=== PATIENT | female | born 1950 | race African-American/Black ===

== ENCOUNTER 2016-11-24 08:26 | Observation (INO) ==
[2016-11-24] MEDS ORDERED: MAGNESIUM SULF RIDER 2 GM in PREMIX 1 EACH IV STA (08:38)
[2016-11-24] MEDS ORDERED: ALBUTEROL NEB SOLN 5 MG/ML 20 ML/BOTTLE CONT NEB STA (08:38)
[2016-11-24] MEDS ORDERED: methylPREDNISolone SOD SUC 125 MG/2 ML VIAL IV STA (08:38)
[2016-11-24] MEDS ORDERED: SODIUM CHLORIDE 0.9% 500 ML IV STA (08:38)
[2016-11-24] MEDS ORDERED: methylPREDNISolone SOD SUC 125 MG/2 ML VIAL ONE (08:47)
--- NOTE | 2016-11-24 08:47 | Emergency Department Note ---
Kena Pate Brittany, am scribing for, and in the presence of, Jaya Morrison MD 08: 42. Tamiko Pate James D, MD, personally performed the services described in this documentation, ascribed by Idania Escudero in my presence, and it is both accurate and complete 846 . Arrival - Arrival Chief Complaint: Shortness of Breath Stated Complaint: chest pain ED Nursing Triage Note: C/o cough, SOB, and wheezing-onset yesterday. Reports that she took her nebulizer with no relief. Audible wheezing noted. Mode of Arrival: Ambulatory Limitations: No Limitations Source: Patient Time Seen by Provider: 11/24/16 08:36 - History of Present Illness HPI Narrative: This is a 66 y/o black female,who presents to the ED with c/o dyspnea which started last night. She states the SOB got worse this morning. She states she is wheezing and coughing as well. She states the cough is mildly productive of white clear sputum. She has taken a breathing Tx which has not helped. Patient has a long history of asthma. She has been intubated in the past due to her asthma exacerbations. Pt has no other complaints/pain in the ED at this time. Pt has a PMHx of IDDM, HTN, and asthma. Pt has had a hysterectomy and orthopedic surgery. Pt has a family medical Hx of HTN. Pt denies a social Hx. Onset (ago): hour(s) (Started last night) Consistency: constant Severity: moderate Date of Last Menstrual Period: hysterectomy Allergies/Adverse Reactions: Allergies Allergy/AdvReac Type Severity Reaction Status Date / Time acetaminophen [From Lortab] Allergy Mild ITCHING Verified 08/14/15 18:38 hydrocodone [From Lortab] Allergy Mild ITCHING Verified 08/14/15 18:38 Home Medications: Home Medications Medication Instructions Recorded Confirmed Type Albuterol Sulfate [Ventolin HFA] 2 puff INH Q4HR 09/04/15 11/24/16 History Allopurinol 300 mg PO DAILY 09/04/15 11/24/16 History Colchicine [Colcrys] 0.6 mg PO TID 09/04/15 11/24/16 History Furosemide Tab [Lasix Tab] 80 mg PO QAM 09/04/15 11/24/16 History Gabapentin 300 mg PO BID 09/04/15 11/24/16 History Glimepiride 4 mg PO BID 09/04/15 11/24/16 History Ipratropium/Albuterol Sulfate 3 ml INH QID 09/04/15 11/24/16 History [Iprat-Albut 0.5-3(2.5) mg/3 ml] Meloxicam 7.5 mg PO DAILY 09/04/15 11/24/16 History Ranitidine Tab [Zantac Tab] 150 mg PO BID 09/04/15 11/24/16 History cloNIDine TAB [Catapres Tab] 0.3 mg PO BID 09/04/15 11/24/16 History hydroCHLOROthiazide 25 mg PO DAILY 09/04/15 11/24/16 History [Hydrochlorothiazide] predniSONE TAB [PredniSONE] 10 mg PO DAILY 09/04/15 11/24/16 History Insulin NPH Human Isophane 25 unit SUBCUT BEDTIME 09/24/16 11/24/16 History [NovoLIN N] Insulin NPH Human Isophane 30 unit SUBCUT DAILY 09/24/16 11/24/16 History [NovoLIN N] Acetaminophen Tab [Tylenol Tab] 1,000 mg PO QOTHER DAY PRN 11/24/16 11/24/16 History Fluticasone/Salmeterol 500-50 1 puff INH BID 11/24/16 11/24/16 History [Advair 500-50] Furosemide Tab [Lasix Tab] 40 mg PO BEDTIME 11/24/16 11/24/16 History Lisinopril 10 mg PO DAILY 11/24/16 11/24/16 History Montelukast Tab [Singulair Tab] 10 mg PO DAILY 11/24/16 11/24/16 History traMADol TAB [Ultram] 50 mg PO DAILY PRN 11/24/16 11/24/16 History Review of System - Review of System 12 point system: reviewed and no additional remarkable complaints except as stated - Review of System Respiratory: Present: cough (Mild production of white clear sputum ), wheezing Cardiovascular: Present: chest pain Medical,Surgical,& Family Hx - Medical History Cardio: History of: Hypertension Endocrine: History of: Diabetes Mellitus (IDDM) Respiratory: History of: Asthma - Surgical History Reproductive Surgeries: Surgical HX of;: Hysterectomy Orthopedic Surgeries: Surgical HX of;: Orthopedic Surgery - Family History Family History: Reports;: Family Hypertension - Social History Smoking Status: Never smoker Frequency of Alcohol Use: None Type of Drug Use: None Exam Vital Signs: Vital Signs Temperature 98.8 F 11/24/16 08:29 Pulse Rate 105 H 11/24/16 10:15 Respiratory Rate 20 11/24/16 10:15 Blood Pressure 171/99 11/24/16 09:45 O2 Sat by Pulse Oximetry 98 11/24/16 10:15 GENERAL: This is a well-nourished well-developed black female, obese in mild respiratory distress. VITAL SIGNS: Reviewed HEENT: Head is atraumatic and normocephalic. Pupils are equal round react to light. Extraocular movements are intact. Oropharynx is benign with moist mucous membranes. NECK: Neck is soft and supple without tenderness. There are no masses. There is no lymphadenopathy. LUNGS: Wheezing in all lung jenkins, prolonged expiration, tachypnea, accessory muscle use. Chest rises symmetrically. There is no chest wall tenderness. CV: Heart is rapid rate, regular rhythm without murmurs rubs or gallops. ABDOMEN: Abdomen is soft, nontender to palpation. There are no abdominal abnormal masses palpated. There is no organomegaly. Bowel sounds are present and active. SKIN: Skin is warm and dry. No rash. EXTREMITIES: Patient has full range of motion without tenderness. There is trace pedal edema. NEUROLOGIC: Awake alert and oriented 4. Cranial nerves II through XII are grossly intact. Motor is 5 over 5 in all extremities bilaterally. Course - Consultations Consultation #1: Discussed with Dr. Tian. Patient will be admitted to the hospitalist service. Time: 11:08 Results - Labs CBC & BMP: 11/24/16 08:44 11/24/16 08:44 Lab Results: I have reviewed the patients labs Labs: Laboratory Tests 11/24/16 08:44 Troponin I 0.018 Laboratory Tests 11/24/16 08:44 B-Natriuretic Peptide 28 - EKG EKG results: interpreted by ERMD - Impressions EKG: Sinus tachycardia with a rate of 101, left bundle branch block, no further interpretation possible - Diagnostic Findings Procedure: Chest x-ray: image reviewed by me (Small left-sided pleural effusion no infiltrates.) Disposition Clinical Impression: Acute asthma exacerbation Case discussed with: patient Disposition: Still a Patient Condition: Guarded Time of Disposition: 11:04
[2016-11-24] MEDS ORDERED: MAGNESIUM SULF RIDER 50 ML IV ONE (08:48)
[2016-11-24 08:51] LABS: Basophils # 0.1 10*3/uL (0.0-0.2); Basophils % 0.6 % (0.0-0.8); Eosinophils # 0.4 10*3/uL (0.0-0.87); Hematocrit 42.5 VOL% (35.7-47.0); Hemoglobin 13.5 GM/DL (12.0-16.0); Immature Granulocytes % 1.2 %; Immature Granulocytes Absolute 0.13 #; Lymphocytes % 18.2 % (21.3-54.2); Mean Corpuscular HGB Conc 31.8 GM/DL (32-36); Mean Corpuscular Hemoglobin 29 PG (27-34); Mean Corpuscular Volume 89.7 FL (87-102); Monocytes # 0.9 10*3/uL (0.11-0.8); Monocytes % 7.9 % (1.7-12.7); Neutrophils # 7.4 10*3/uL (1.4-7.4); Neutrophils % 68.1 % (38.7-73.9); Platelet Count 227 10*3/uL (130-400); Red Blood Count 4.74 10*6/uL (3.8-5.5); Red Cell Distribution Width 15.5 % (9.3-17.3); White Blood Count 10.8 10*3/uL (4.5-13.71)
[2016-11-24 09:24] LABS: Albumin 3.4 G/DL (3.4-5.0); Bilirubin,Total 0.9 MG/DL (0.2-1.0); Calcium 9.1 MG/DL (8.5-10.1); Osmolality,Calculated 294.6 MOS/KG (273-304); Potassium 4.1 MMOL/L (3.5-5.1); Troponin I Only 0.018 NG/ML (0.00-0.045)
--- NOTE | 2016-11-24 10:43 | XRay Report ---
Exam: XR chest 2V Indication: Cough dyspnea Comparison study: 09/25/16 Findings: The heart, mediastinum and bony structures are stable from prior. Slight increase in central perihilar interstitial prominence may represent atelectasis or underlying interstitial edema changes superimposed on scarring. Similar mild flattening of diaphragms is noted. There is no focal consolidation, pneumothorax or pleural effusion identified. Impression: Borderline cardiomegaly with similar interstitial scarring changes. A mild degree of underlying interstitial edema or developing interstitial infiltrates cannot be entirely excluded. PROCEDURE INTERPRETED AT [facility] DEPARTMENT OF RADIOLOGY Final Report Signed by: Erik Joaquin
--- NOTE | 2016-11-24 11:00 | EKG Report ---
Stationary ECG Study [facility] ER Test Date: 11/24/2016 10:58:54 AM Pat Name: JIMY RICCI Department: Room: Gender: F Pcb Design Engineer: JUAN PABLO : 1950 Requested by: Jaya Sheffield Order Number: [id number] Reading MD: SP HAN Intervals [place] Rate: 101 P: 61 MT: 140 QRS: -38 QRSD: 152 T: 116 QT: 379 QTc: 437 Interpretive Statements SINUS TACHYCARDIA MARKED LEFT AXIS DEVIATION LEFT BUNDLE BRANCH BLOCK Electronically Signed On 11-24-16 14:16:01 BREAST TRIMMER by SP HAN [email or web address]
[2016-11-24] MEDS ORDERED: GLUCAGON 1 MG VIAL IM PRN (11:18)
[2016-11-24] MEDS ORDERED: ONDANSETRON 4 MG/2 ML VIAL IV PRN (11:18)
[2016-11-24] MEDS ORDERED: DEXTROSE 50% 25 GM/50 ML VIAL IV PRN (11:18)
[2016-11-24] MEDS ORDERED: traMADol 50 MG TABLET PO PRN (11:23)
[2016-11-24] MEDS ORDERED: ACETAMINOPHEN 500 MG TABLET PO PRN (11:23)
--- NOTE | 2016-11-24 13:37 | Hospitalist History & Physical ---
Assessment and Plan (1) Asthma with exacerbation Status: Acute Assessment and plan: 1)asthma exacerbation- continue the IV steroids and Duonebs started in ER, and add levaquin. Continue her usual resp meds- singulair, advair. Consult DR Ayoub. 2)HTN- continue usual meds. 3)obesity 4)DM- expect glucose to rise with IV steroids. Use usual glimepride and Novolin N and add SSI. Current Visit: No (2) Obesity (BMI 30-39.9) Status: Acute Current Visit: Yes (3) HTN (hypertension) Status: Acute Current Visit: Yes (4) Diabetes type 2, controlled Status: Acute Current Visit: No Qualifiers: Diabetes mellitus complication status: with hyperglycemia Diabetes mellitus half-way insulin use: with half-way use Qualified Code(s): E11.65 - Type 2 diabetes mellitus with hyperglycemia History of Present Illness Chief complaint: wheezing History of present illness: Ms. Flynn is a 66 year old female who came to ER this morning because her wheezing got worse overnight. She ways she wheezes some every day and is under DR Ayoub's care for asthma. She has been receiving Xolair as recommended and using her other resp meds as directed. She has not had fever, only occ cough, no other focal symptoms but has been wheezing loudly since the night. In Er she received IV steroids and an hour long neb and has improved. Though she continues to wheeze, she is much more comfortable than on arrival. No sick contacts. She has been intubated for asthma several years ago. She uses home O2 and her says she usually wheezes at night, but not like she is today. She is agreeable with admission for treatment. Home Medications Medication Instructions Recorded Confirmed Type Albuterol Sulfate [Ventolin HFA] 2 puff INH Q4HR 09/04/15 11/24/16 History Allopurinol 300 mg PO DAILY 09/04/15 11/24/16 History Colchicine [Colcrys] 0.6 mg PO TID 09/04/15 11/24/16 History Furosemide Tab [Lasix Tab] 80 mg PO QAM 09/04/15 11/24/16 History Gabapentin 300 mg PO BID 09/04/15 11/24/16 History Glimepiride 4 mg PO BID 09/04/15 11/24/16 History Ipratropium/Albuterol Sulfate 3 ml INH QID 09/04/15 11/24/16 History [Iprat-Albut 0.5-3(2.5) mg/3 ml] Meloxicam 7.5 mg PO DAILY 09/04/15 11/24/16 History Ranitidine Tab [Zantac Tab] 150 mg PO BID 09/04/15 11/24/16 History cloNIDine TAB [Catapres Tab] 0.3 mg PO BID 09/04/15 11/24/16 History hydroCHLOROthiazide 25 mg PO DAILY 09/04/15 11/24/16 History [Hydrochlorothiazide] predniSONE TAB [PredniSONE] 10 mg PO DAILY 09/04/15 11/24/16 History Insulin NPH Human Isophane 25 unit SUBCUT BEDTIME 09/24/16 11/24/16 History [NovoLIN N] Insulin NPH Human Isophane 30 unit SUBCUT DAILY 09/24/16 11/24/16 History [NovoLIN N] Acetaminophen Tab [Tylenol Tab] 1,000 mg PO QOTHER DAY PRN 11/24/16 11/24/16 History Fluticasone/Salmeterol 500-50 1 puff INH BID 11/24/16 11/24/16 History [Advair 500-50] Furosemide Tab [Lasix Tab] 40 mg PO BEDTIME 11/24/16 11/24/16 History Lisinopril 10 mg PO DAILY 11/24/16 11/24/16 History Montelukast Tab [Singulair Tab] 10 mg PO DAILY 11/24/16 11/24/16 History traMADol TAB [Ultram] 50 mg PO DAILY PRN 11/24/16 11/24/16 History Allergies Allergy/AdvReac Type Severity Reaction Status Date / Time acetaminophen [From Lortab] Allergy Mild ITCHING Verified 08/14/15 18:38 hydrocodone [From Lortab] Allergy Mild ITCHING Verified 08/14/15 18:38 Medical,Surgical,& Family Hx - Medical History Cardio: History of: Hypertension Endocrine: History of: Diabetes Mellitus (IDDM) Respiratory: History of: Asthma - Surgical History Reproductive Surgeries: Surgical HX of;: Hysterectomy Orthopedic Surgeries: Surgical HX of;: Orthopedic Surgery (Bilateral Knee replacement) - Family History Family History: Reports;: Family Hypertension - Social History Smoking Status: Never smoker Frequency of Alcohol Use: None Type of Drug Use: None Marital Status: Lives With:: Spouse Functional capacity: independent ambulation 12 point system: reviewed and no additional remarkable complaints except as stated Exam - Constitutional Vitals: Period Temp Pulse Resp BP Sys/Barnhart Pulse Ox Last 24 Hr 98.6 F 103-118 18-23 165-191/75-96 93-96 General appearance: mild distress, morbidly obese - Head Head exam: Present: normocephalic, atraumatic - Eye Eye exam: Present: EOMI. Absent: scleral icterus - Respiratory Respiratory exam: Present: wheezes (thorughout) - Cardiovascular Cardiovascular exam: Present: regular rate and rhythm - GI/Abdominal GI/Abdominal exam: Present: normal bowel sounds, soft. Absent: tenderness - Extremities Exam Extremities exam: Absent: edema - Neurological Exam Neurological exam: Present: alert, oriented X3, CN II-XII intact. Absent: motor sensory deficit - Psychiatric Psychiatric exam: Present: normal affect, normal mood - Skin Skin exam: Present: warm, dry Results - Labs CBC & BMP: 11/24/16 08:44 11/24/16 08:44 Lab Results: I have reviewed the past 24 hour labs
[2016-11-24] MEDS: INSULIN LISPRO 100 UNIT/ML SUBCUT SCH ×3 (14:03→20:22)
[2016-11-24] MEDS: ALBUTEROL 2.5 MG/3 ML NEB RESP TX SCH ×3 (14:49→23:21)
[2016-11-24] MEDS: ALBUTEROL/IPRATROPIUM 3 ML NEB RESP TX SCH ×3 (14:49→23:20)
[2016-11-24] MEDS: FUROSEMIDE 80 MG TABLET PO SCH (15:17)
[2016-11-24] MEDS: LISINOPRIL 10 MG TABLET PO SCH (15:17)
[2016-11-24] MEDS: COLCHICINE 0.6 MG TABLET PO SCH ×2 (15:17→20:22)
[2016-11-24] MEDS: LEVOFLOXACIN INJ 750 MG in PREMIX 1 EACH IV SCH (15:18)
[2016-11-24] MEDS ORDERED: INSULIN NPH 100 UNIT/ML SUBCUT SCH (17:00)
[2016-11-24] MEDS: GLIMEPIRIDE 4 MG TABLET PO SCH (17:10)
[2016-11-24] MEDS: methylPREDNISolone SOD SUC 40 MG/1 ML VIAL IV SCH (17:10)
[2016-11-24] MEDS: ENOXAPARIN 40 MG/0.4 ML SYRINGE SUBCUT SCH (20:21)
[2016-11-24] MEDS: FLUTICASONE/SALMETEROL 500-50 DISKUS 14 DOSE INH SCH (20:22)
[2016-11-24] MEDS: GABAPENTIN 300 MG CAPSULE PO SCH (20:22)
[2016-11-24] MEDS ORDERED: FUROSEMIDE 40 MG TABLET PO SCH (21:00)
[2016-11-25] MEDS: methylPREDNISolone SOD SUC 40 MG/1 ML VIAL IV SCH ×3 (00:42→17:07)
[2016-11-25] MEDS: ALBUTEROL/IPRATROPIUM 3 ML NEB RESP TX SCH ×6 (03:37→23:57)
[2016-11-25] MEDS: ALBUTEROL 2.5 MG/3 ML NEB RESP TX SCH ×3 (03:38→10:31)
[2016-11-25 04:26] LABS: Potassium 4.3 MMOL/L (3.5-5.1)
[2016-11-25] MEDS ORDERED: INSULIN NPH 100 UNIT/ML SUBCUT SCH (08:00)
[2016-11-25] MEDS: MELOXICAM 7.5 MG TABLET PO SCH (09:19)
[2016-11-25] MEDS: FUROSEMIDE 80 MG TABLET PO SCH (09:20)
[2016-11-25] MEDS: GLIMEPIRIDE 4 MG TABLET PO SCH ×2 (09:20→17:03)
[2016-11-25] MEDS: ALLOPURINOL 300 MG TABLET PO SCH (09:20)
[2016-11-25] MEDS: MONTELUKAST 10 MG TABLET PO SCH (09:20)
[2016-11-25] MEDS: GABAPENTIN 300 MG CAPSULE PO SCH ×2 (09:21→20:54)
[2016-11-25] MEDS: LISINOPRIL 10 MG TABLET PO SCH (09:21)
[2016-11-25] MEDS: COLCHICINE 0.6 MG TABLET PO SCH ×2 (09:21→20:54)
[2016-11-25] MEDS: INSULIN LISPRO 100 UNIT/ML SUBCUT SCH ×4 (09:22→20:55)
[2016-11-25] MEDS: FLUTICASONE/SALMETEROL 500-50 DISKUS 14 DOSE INH SCH ×2 (09:29→20:55)
--- NOTE | 2016-11-25 10:48 | Hospitalist Progress Note ---
Assessment and Plan (1) Asthma with exacerbation Status: Acute Assessment and plan: Continue duo nebs, steroids, Levaquin. Current Visit: No (2) Acute on chronic renal failure Status: Acute Assessment and plan: Most likely secondary to diuretics. Will get echocardiogram to ensure patient does not have heart failure. BNP normal. Current Visit: Yes (3) Diabetes type 2, controlled Status: Acute Assessment and plan: Blood sugars not controlled due to steroids. Will add mealtime insulin and increase NPH Current Visit: No Qualifiers: Diabetes mellitus complication status: with hyperglycemia Diabetes mellitus detention insulin use: with detention use Qualified Code(s): E11.65 - Type 2 diabetes mellitus with hyperglycemia (4) Obesity (BMI 30-39.9) Status: Acute Current Visit: Yes (5) HTN (hypertension) Status: Acute Assessment and plan: Not controlled. Will decrease Lasix and check echo. We will add Coreg. Current Visit: Yes Hospitalist: Subjective Interval history: Patient says she is feeling a little bit better today. Concerned about the size of her breasts causing breathing trouble. Exam - Constitutional Vitals: Period Temp Pulse Resp BP Sys/Barnhart Pulse Ox Last 24 Hr 97.9 F-98.6 F 88-118 15-24 121-191/63-107 93-98 Exam: Heart Rate-[tachy] Lungs-[diminished few wheezes ] GI-[+bs soft, NT,obese] Ext-[no edema] neuro motor 5/5 alert and oriented times 3 psych normal mood and affect Results - Labs CBC & BMP: 11/24/16 08:44 11/25/16 02:43 Lab Results: I have reviewed the past 24 hour labs - Diagnostic Findings Procedure: Chest x-ray: report reviewed by me (Scarring)
[2016-11-25] MEDS ORDERED: FUROSEMIDE 80 MG TABLET PO SCH (10:50)
[2016-11-25] MEDS: INSULIN REGULAR 100 UNIT/ML SUBCUT SCH ×3 (13:31→20:54)
[2016-11-25] MEDS: CARVEDILOL 6.25 MG TABLET PO SCH ×2 (13:31→20:54)
--- NOTE | 2016-11-25 15:11 | Pulmonology Consult Note ---
Assessment and Plan (1) Asthma with exacerbation Status: Acute Assessment and plan: clincially sounds like an asthma exacerbation. Agree with nebs and steroids. Would DC antibiotics, no indication unless treating other non-pulmonary infection. Patient feels much improved. Tomorrow could transition to PO meds in anticipation of discharge next week. Will continue to follow Current Visit: No (2) Obesity (BMI 30-39.9) Status: Acute Assessment and plan: Patient does have large breasts that may be contributing to dyspnea while laying flat. Will discuss with her outpatient primary class teacher, Dr William, whether she has any evidence of restriction on her PFTs. May need to consider breast reduction surgery Current Visit: Yes History of Present Illness History of present illness: Ms. Flynn is a 66 year old female with a history of asthma. She reports that she started having wheezing last Sunday. this progressed and she was using frequent neb treatments without any improvement, so she came to the hospital. She reports that her has been sick at home for 2 weeks. She denies fevers, chills. She does report that she has wheezing much more regularly now. She was hospitalized in Sep for an exacerbation but she states she wasn't hospitalized for several years prior to that. She has been intubated in the past though for her asthma. She denies childhood asthma, states she was diagnosed as an adult. 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 One of her three kids had childhood asthma. She never smoked. She has no indoor pets, but states her does have dogs, horses and chickens on the property. Home Medications Medication Instructions Recorded Confirmed Type Albuterol Sulfate [Ventolin HFA] 2 puff INH Q4HR 09/04/15 11/24/16 History Allopurinol 300 mg PO DAILY 09/04/15 11/24/16 History Colchicine [Colcrys] 0.6 mg PO TID 09/04/15 11/24/16 History Furosemide Tab [Lasix Tab] 80 mg PO QAM 09/04/15 11/24/16 History Gabapentin 300 mg PO BID 09/04/15 11/24/16 History Glimepiride 4 mg PO BID 09/04/15 11/24/16 History Ipratropium/Albuterol Sulfate 3 ml INH QID 09/04/15 11/24/16 History [Iprat-Albut 0.5-3(2.5) mg/3 ml] Meloxicam 7.5 mg PO DAILY 09/04/15 11/24/16 History Ranitidine Tab [Zantac Tab] 150 mg PO BID 09/04/15 11/24/16 History cloNIDine TAB [Catapres Tab] 0.3 mg PO BID 09/04/15 11/24/16 History hydroCHLOROthiazide 25 mg PO DAILY 09/04/15 11/24/16 History [Hydrochlorothiazide] predniSONE TAB [PredniSONE] 10 mg PO DAILY 09/04/15 11/24/16 History Insulin NPH Human Isophane 25 unit SUBCUT BEDTIME 09/24/16 11/24/16 History [NovoLIN N] Insulin NPH Human Isophane 30 unit SUBCUT DAILY 09/24/16 11/24/16 History [NovoLIN N] Acetaminophen Tab [Tylenol Tab] 1,000 mg PO BID PRN 11/24/16 11/24/16 History Fluticasone/Salmeterol 500-50 1 puff INH BID 11/24/16 11/24/16 History [Advair 500-50] Furosemide Tab [Lasix Tab] 40 mg PO BEDTIME 11/24/16 11/24/16 History Lisinopril 10 mg PO DAILY 11/24/16 11/24/16 History Montelukast Tab [Singulair Tab] 10 mg PO DAILY 11/24/16 11/24/16 History traMADol TAB [Ultram] 50 mg PO DAILY PRN 11/24/16 11/24/16 History Allergies Allergy/AdvReac Type Severity Reaction Status Date / Time acetaminophen [From Lortab] Allergy Mild ITCHING Verified 08/14/15 18:38 hydrocodone [From Lortab] Allergy Mild ITCHING Verified 08/14/15 18:38 12 point system: reviewed and no additional remarkable complaints except as stated Exam (Pulmonay) H&P - Constitutional Vitals: Period Temp Pulse Resp BP Sys/Barnhart Pulse Ox Last 24 Hr 97.9 F-98.6 F 88-116 15-24 115-191/61-107 93-98 General appearance: over weight - Head Head exam: Present: normal inspection - Eye Eye exam: Present: EOMI Pupils: Present: MARGARITA - ENT ENT exam: Present: normal exam - Respiratory Respiratory exam: Present: clear to auscultation bilaterally. Absent: rales, rhonchi, wheezes - Cardiovascular Cardiovascular exam: Present: regular rate and rhythm - GI/Abdominal GI/Abdominal exam: Present: soft Medical,Surgical,& Family Hx - Medical History Cardio: History of: Hypertension Endocrine: History of: Diabetes Mellitus (IDDM) Respiratory: History of: Asthma - Surgical History Reproductive Surgeries: Surgical HX of;: Hysterectomy Orthopedic Surgeries: Surgical HX of;: Orthopedic Surgery (Bilateral Knee replacement) - Family History Family History: Reports;: Family Hypertension - Social History Smoking Status: Never smoker Frequency of Alcohol Use: None Type of Drug Use: None Results - Labs CBC & BMP: 11/24/16 08:44 11/25/16 02:43 Lab Results: I have reviewed the past 24 hour labs - Diagnostic Findings Procedure: Chest x-ray: image reviewed by me (jazmín)
[2016-11-25] MEDS: LEVOFLOXACIN INJ 750 MG in PREMIX 1 EACH IV SCH (15:34)
--- NOTE | 2016-11-25 16:14 | ECHO Report ---
Carlos Alberto Flynn Exam Date: 11/25/2016 13:24 Referring Physician: Technologist: Tad TOPETE Age: 66 Ht (in): Wt (lb): Gender: F Exam Location: [facility] Echo Indications: HTN, acute renal failure, SOB, asthma, diabetes BP: / HR: Rhythm: Sinus Technical Quality: Good IMPRESSIONS Left ventricular ejection fraction is estimated at >65%. Findings suggestive of left ventricular diastolic dysfunction. Severely increased septal wall thickness. Moderately increased left atrial diameter. Mildly thickened mitral valve with mild mitral regurgitation. Moderate aortic sclerosis without stenosis. Aortic valve mean gradient is 12 mmHg. [id number] tricuspid valve regurgitation. Tricuspid regurgitation velocities suggest a PAP of 15.7 mmHg + RAP. MEASUREMENTS (Male / Female) Normal Values 2D ECHO LV Diastolic Diameter PLAX 4.0 cm 4.2 - 5.9 / 3.9 - 5.3 cm LV Systolic Diameter PLAX 3.4 cm LV Fractional Shortening PLAX 15.0 % IVS Diastolic Thickness 1.7 cm 0.6 - 1.0 / 0.6 - 0.9 cm LVPW Diastolic Thickness 1.5 cm 0.6 - 1.0 / 0.6 - 0.9 cm RV Internal Dim ED PLAX 3.6 cm Aortic Root Diameter 3.2 cm LA Systolic Diameter LX 4.5 cm 3.0 - 4.0 / 2.7 - 3.8 cm DOPPLER TR Peak Velocity 198.0 cm/s TR Peak Gradient 15.7 mmHg FINDINGS Left Ventricle Severely increased septal wall thickness. Moderately increased posterior wall thickness. left ventricular ejection fraction is estimated at >65%.Findings suggestive of left ventricular diastolic dysfunction. Right Ventricle Mildly increased right ventricular size. Right Atrium Normal right atrial size. Left Atrium Moderately increased left atrial diameter. Mitral Valve Mildly thickened mitral valve with mild mitral regurgitation. Aortic Valve Moderate aortic sclerosis without stenosis. Aortic valve area is 1.4 cm. Aortic valve mean gradient is 12 mmHg. Tricuspid Valve Morphologically normal tricuspid valve. Eqll-[id number] tricuspid valve regurgitation. Tricuspid regurgitation velocities suggest a PAP of 15.7 mmHg + RAP. Pulmonic Valve Pulmonic valve not well visualized. Pericardium No pericardial effusion. Aorta Normal size aortic root and proximal ascending aorta. Shiva Keyes MD (Electronically Signed) Final Date: 25 November 2016 16:13
[2016-11-25] MEDS: INSULIN NPH 100 UNIT/ML SUBCUT SCH (17:04)
[2016-11-25] MEDS: ENOXAPARIN 40 MG/0.4 ML SYRINGE SUBCUT SCH (20:54)
[2016-11-26] MEDS: methylPREDNISolone SOD SUC 40 MG/1 ML VIAL IV SCH ×2 (00:56→09:31)
[2016-11-26] MEDS: ALBUTEROL/IPRATROPIUM 3 ML NEB RESP TX SCH ×5 (03:38→22:44)
[2016-11-26] MEDS: INSULIN REGULAR 100 UNIT/ML SUBCUT SCH ×4 (08:41→21:30)
[2016-11-26] MEDS: INSULIN NPH 100 UNIT/ML SUBCUT SCH ×2 (08:41→17:06)
[2016-11-26] MEDS: INSULIN LISPRO 100 UNIT/ML SUBCUT SCH ×4 (08:42→21:31)
[2016-11-26] MEDS: COLCHICINE 0.6 MG TABLET PO SCH ×2 (08:43→21:31)
[2016-11-26] MEDS: GLIMEPIRIDE 4 MG TABLET PO SCH ×2 (08:43→16:50)
[2016-11-26] MEDS: MELOXICAM 7.5 MG TABLET PO SCH (08:43)
[2016-11-26] MEDS: ALLOPURINOL 300 MG TABLET PO SCH (08:43)
[2016-11-26] MEDS: GABAPENTIN 300 MG CAPSULE PO SCH ×2 (08:43→21:31)
[2016-11-26] MEDS: MONTELUKAST 10 MG TABLET PO SCH (08:43)
[2016-11-26] MEDS: CARVEDILOL 6.25 MG TABLET PO SCH ×2 (08:44→21:31)
[2016-11-26] MEDS: LISINOPRIL 10 MG TABLET PO SCH (08:44)
[2016-11-26] MEDS: FLUTICASONE/SALMETEROL 500-50 DISKUS 14 DOSE INH SCH ×2 (08:50→21:30)
--- NOTE | 2016-11-26 11:46 | Hospitalist Progress Note ---
Assessment and Plan (1) Asthma with exacerbation Status: Acute Assessment and plan: Continue duo nebs, p.o. steroids, Levaquin. Current Visit: No (2) Acute on chronic renal failure Status: Acute Assessment and plan: BNP normal continue to hold Lasix Current Visit: Yes (3) Diabetes type 2, controlled Status: Acute Assessment and plan: Decrease steroids, continue insulin Current Visit: No Qualifiers: Diabetes mellitus complication status: with hyperglycemia Diabetes mellitus skilled nursing insulin use: with skilled nursing use Qualified Code(s): E11.65 - Type 2 diabetes mellitus with hyperglycemia (4) Obesity (BMI 30-39.9) Status: Acute Current Visit: Yes (5) HTN (hypertension) Status: Acute Assessment and plan: Continue Coreg Current Visit: Yes Hospitalist: Subjective Interval history: Patient's breathing is about the same. I discussed her case with the field crop grower and she agrees that she needs a breast reduction in order to breathe. Exam - Constitutional Vitals: Period Temp Pulse Resp BP Sys/Barnhart Pulse Ox Last 24 Hr 97.5 F-98.3 F 71-110 15-25 115-148/57-80 92-100 Exam: Heart Rate-[rrr] Lungs-[diminished few wheezes ] GI-[+bs soft, NT,obese] Ext-[no edema] neuro motor 5/5 alert and oriented times 3 psych normal mood and affect general no acute distress Results - Labs CBC & BMP: 11/24/16 08:44 11/25/16 02:43 Lab Results: I have reviewed the past 24 hour labs - Diagnostic Findings Procedure: Ultrasound: report reviewed by me (Echocardiogram showed a normal EF with mild diastolic dysfunction.)
--- NOTE | 2016-11-26 12:05 | Pulmonology Progress Note ---
Pulmonary - PN: Subj Interval history: Patient doing well, getting a breathing treatment at time of exam. States her breathing is much better than yesterday. Exam (Progress Note) - Constitutional Vitals: Period Temp Pulse Resp BP Sys/Barnhart Pulse Ox Last 24 Hr 97.5 F-98.1 F 71-110 15-25 104-148/57-80 92-100 General appearance: no acute distress, over weight - Respiratory Respiratory exam: Present: wheezes (scattered expiratory, but much improved from yesterday). Absent: accessory muscle use, decreased breath sounds, stridor Results - Labs CBC & BMP: 11/24/16 08:44 11/25/16 02:43 Lab Results: I have reviewed the past 24 hour labs Assessment and Plan (1) Asthma with exacerbation Status: Acute Assessment and plan: PAtient clinically much improved. Continue with steroids and nebs. Dr Ayoub will resume care tomorrow Current Visit: No
[2016-11-26] MEDS: LEVOFLOXACIN INJ 750 MG in PREMIX 1 EACH IV SCH (16:47)
[2016-11-26] MEDS: ENOXAPARIN 40 MG/0.4 ML SYRINGE SUBCUT SCH (21:32)
[2016-11-27] MEDS: ALBUTEROL/IPRATROPIUM 3 ML NEB RESP TX SCH ×4 (01:39→11:35)
[2016-11-27] MEDS: INSULIN LISPRO 100 UNIT/ML SUBCUT SCH ×2 (08:35→13:50)
[2016-11-27] MEDS: INSULIN REGULAR 100 UNIT/ML SUBCUT SCH ×2 (08:35→11:50)
[2016-11-27] MEDS: GLIMEPIRIDE 4 MG TABLET PO SCH (08:37)
[2016-11-27] MEDS: COLCHICINE 0.6 MG TABLET PO SCH (08:37)
[2016-11-27] MEDS: ALLOPURINOL 300 MG TABLET PO SCH (08:37)
[2016-11-27] MEDS: GABAPENTIN 300 MG CAPSULE PO SCH (08:37)
[2016-11-27] MEDS: LISINOPRIL 10 MG TABLET PO SCH (08:38)
[2016-11-27] MEDS: MONTELUKAST 10 MG TABLET PO SCH (08:38)
[2016-11-27] MEDS: CARVEDILOL 6.25 MG TABLET PO SCH (08:38)
[2016-11-27] MEDS: MELOXICAM 7.5 MG TABLET PO SCH (08:38)
[2016-11-27] MEDS: INSULIN NPH 100 UNIT/ML SUBCUT SCH (08:39)
[2016-11-27] MEDS: FLUTICASONE/SALMETEROL 500-50 DISKUS 14 DOSE INH SCH (08:41)
[2016-11-27] MEDS ORDERED: predniSONE 20 MG TABLET PO SCH (09:00)
--- NOTE | 2016-11-27 09:10 | Pulmonology Progress Note ---
Pulmonary - PN: Subj Interval history: This 66-year-old white female has severe asthma. She is chronically on 10 mg of prednisone daily at home. She takes Xolair injections once a month. She came in with an exacerbation last week. She's feeling much better today. She is on oral prednisone. Could be changed to oral Levaquin and plan discharge tomorrow. Exam (Progress Note) - Constitutional Vitals: Period Temp Pulse Resp BP Sys/Barnhart Pulse Ox Last 24 Hr 97.6 F-98.5 F 67-83 17-22 104-152/60-80 94-100 Exam: Patient is alert oriented. Vital signs normal. HEENT: Pupils react to light. Throat is clear. Neck supple no bruits. Chest prolonged expiratory phase no wheezes. Heart normal rate rhythm no murmurs. Abdomen soft nontender no masses. Extremities no clubbing cyanosis or edema. Calves nontender. Results - Labs CBC & BMP: 11/24/16 08:44 11/25/16 02:43 Lab Results: I have reviewed the past 24 hour labs - Diagnostic Findings Procedure: Chest x-ray: image reviewed by me (hyperinflation with no acute infiltrate. Chronic scarring at left pleural angle.) Assessment and Plan (1) Asthma with exacerbation Status: Acute Assessment and plan: Symptoms much improved. She is wheeze free. Probably could be discharged tomorrow on oral medication. Needs prednisone 40 mg daily for 5 more days. Then she can get back on her 10 mg daily at home per usual. Current Visit: No (2) Diabetes type 2, controlled Status: Acute Assessment and plan: Fairly well controlled diabetes. Current Visit: No Qualifiers: Diabetes mellitus complication status: with hyperglycemia Diabetes mellitus long term care administrator insulin use: with custodial use Qualified Code(s): E11.65 - Type 2 diabetes mellitus with hyperglycemia (3) Obesity (BMI 30-39.9) Status: Acute Assessment and plan: Needs weight loss long-term. With her asthma I would not recommend any elective surgery for breast reduction. Current Visit: Yes
[2016-11-27 09:23] VITALS: BP 135/74
--- NOTE | 2016-11-27 10:00 | Discharge Summary ---
<April Land - Last Filed: 11/27/16 10:00> Hospital Course - Hospital Course Hospital Course: Ms. Flynn was admitted on 11/24 with an acute asthma exacerbation, and was started on IV steroids, duonebs, and added levaquin and continued her home medications of singulair and advair. She also has a history of obesity, HTN and DM type 2. She has been on xolair and has been compliant with this therapy. She does use oxygen at home PRN. Her renal function appears to be at baseline with a creatinine of 1.3-1.4. ECHO showed > 65% with diastolic dysfunction. Dr. Orellana with Pulmonology was consulted for Asthma Exacerbation. She is chronically on 10 mg of prednisone daily at home as well. Today, her labs and vitals are stable to improved and her breathing is much better. Her lungs are fairly clear and she is ready to go home on appropriate medications and follow up with Dr. Ayoub and Her PCP in [facility]. - Time spent with patient Time with patient DS: Greater than 30 minutes (due to plan, doc and med rec.) Diagnosis - Discharge Diagnosis (1) Acute asthma exacerbation Status: Acute (2) HTN (hypertension) Status: Acute (3) Obesity (BMI 30-39.9) Status: Acute (4) Diabetes type 2, controlled Status: Acute Specialty Discharge - Follow Up or Referrals Follow up with: [facility] clinic, Eloisa Ortiz VALIDATION MANAGER [Other] (end of this week, follow up asthma exacerabtion) Kunal Ayoub MD [Physician] - (keep appt january 08, get Xolair as scheduled prior to that) Discharge Plan - Discharge Data Disposition: Disch To Home/Self Care - Discharge Medications New Carvedilol [Coreg] 6.25 mg PO BID #60 tablet Levofloxacin Tab [Levaquin Tab] 750 mg PO DAILY #7 tablet predniSONE TAB [PredniSONE] 40 mg PO DAILY #10 tablet Continue Gabapentin 300 mg PO BID Allopurinol 300 mg PO DAILY Colchicine [Colcrys] 0.6 mg PO TID Albuterol Sulfate [Ventolin HFA] 2 puff INH Q4HR Glimepiride 4 mg PO BID Furosemide Tab [Lasix Tab] 80 mg PO QAM Ranitidine Tab [Zantac Tab] 150 mg PO BID Meloxicam 7.5 mg PO DAILY hydroCHLOROthiazide [Hydrochlorothiazide] 25 mg PO DAILY cloNIDine TAB [Catapres Tab] 0.3 mg PO BID Ipratropium/Albuterol Sulfate [Iprat-Albut 0.5-3(2.5) mg/3 ml] 3 ml INH QID Insulin NPH Human Isophane [NovoLIN N] 30 unit SUBCUT DAILY Insulin NPH Human Isophane [NovoLIN N] 25 unit SUBCUT BEDTIME traMADol TAB [Ultram] 50 mg PO DAILY PRN PRN Reason: Pain Lisinopril 10 mg PO DAILY Acetaminophen Tab [Tylenol Tab] 1,000 mg PO BID PRN PRN Reason: Pain Fluticasone/Salmeterol 500-50 [Advair 500-50] 1 puff INH BID Montelukast Tab [Singulair Tab] 10 mg PO DAILY Furosemide Tab [Lasix Tab] 40 mg PO BEDTIME predniSONE TAB [PredniSONE] 10 mg PO DAILY #0 - Follow Up or Referral Follow Up: [facility], Eloisa Ortiz NP [Other] (end of this week, follow up asthma exacerabtion) Kunal Ayoub MD [Physician] - (keep appt january 08, get Xolair as scheduled prior to that) - Forms/Instructions Instructions: Asthma (DC), Asthma (GEN) Exam - Constitutional Vitals: Period Temp Pulse Resp BP Sys/Barnhart Pulse Ox Last 24 Hr 97.5 F-98.5 F 67-85 - 104-152/60-80 94-100 Discharge Results Labs on day of discharge: Labs from last 24 hours 11/27/16 11/26/16 11/26/16 08:29 20:11 15:10 POC Glucose 60 L 235 H 189 H 11/26/16 11:09 POC Glucose 233 H DS: Provider Date of admission: 11/24/16 11:14 Primary care physician: . No PCP Attending physician on admission: Kimberlee Tian MD Consults: 11/24/16 11:18 Consult to Physician [CONS] Routine Comment: Consulting Provider: Kunal Ayoub 11/24/16 13:57 Consult to Pharmacy [CONS] Routine Reason for Pharmacy Consult: Adjust Meds Renal Funct Discharging clinician: April Land NP Expected date of discharge: 11/27/16 <Kimberlee Tian - Last Filed: 11/27/16 15:20> Hospital Course - Hospital Course Hospital Course: I have seen and examined Mrs Flynn and agree with the note above. She will follow up with DR Ayoub and knows when she needs to go for her next Xolair dose. She will taper steroids over next week to her basal dose of Pred 10mg a day and will also complete treatment with antibiotics. She will continue to wear O2 at night. Diagnosis - Discharge Diagnosis (1) Asthma with exacerbation Status: Acute (2) Obesity (BMI 30-39.9) Status: Acute (3) HTN (hypertension) Status: Acute (4) Diabetes type 2, controlled Status: Acute Discharge Plan - Discharge Data Condition at Discharge: Stable Discharge Diet: diabetic diet Activity: resume usual activities as tolerated, wear oxygen at night Exam - Constitutional General appearance: no acute distress, over weight - Head Head exam: Present: normocephalic, atraumatic - Eye Eye exam: Present: EOMI. Absent: scleral icterus - Respiratory Respiratory exam: Present: clear to auscultation bilaterally - Cardiovascular Cardiovascular exam: Present: regular rate and rhythm - GI/Abdominal GI/Abdominal exam: Present: normal bowel sounds, soft. Absent: tenderness - Extremities Exam Extremities exam: Absent: edema
== END 2016-11-27 13:30 | disposition home or self-care (01) ==
LOC: N.ED 08:26 → N.EDINP 08:26 → N.2E 13:26
PROVIDERS: ADMIT Internal Medicine; ATTEND Internal Medicine

== ENCOUNTER 2017-06-23 21:15 | Observation (INO) ==
[2017-06-23] MEDS ORDERED: DEXTROSE 50% 25 GM/50 ML VIAL IV STA (21:30)
[2017-06-23] MEDS ORDERED: DEXTROSE 50% 25 GM/50 ML SYRINGE IV ONE (21:35)
[2017-06-23 23:11] LABS: Basophils # 0.1 10*3/uL (0.0-0.2); Basophils % 0.8 % (0.0-0.8); Eosinophils # 0.3 10*3/uL (0.0-0.87); Eosinophils % 3.3 % (0.00-10.9); Hematocrit 39.3 VOL% (35.7-47.0); Immature Granulocytes % 0.6 %; Immature Granulocytes Absolute 0.06 #; Lymphocytes # 2.2 10*3/uL (1.4-4.0); Lymphocytes % 23.8 % (21.3-54.2); Mean Corpuscular HGB Conc 33.1 GM/DL (32-36); Mean Corpuscular Hemoglobin 29 PG (27-34); Mean Corpuscular Volume 88.7 FL (87-102); Mean Platelet Volume 10.4 FL (9.6-12.0); Monocytes % 10.1 % (1.7-12.7); Neutrophils # 5.8 10*3/uL (1.4-7.4); Neutrophils % 61.4 % (38.7-73.9); Platelet Count 258 T/CUMM (130-400); Red Blood Count 4.43 MC/CUMM (3.8-5.5); White Blood Count 9.4 T/CUMM (4-12)
[2017-06-23 23:38] LABS: Alanine Aminotransferase 21 U/L (13-56); Albumin 3.6 G/DL (3.4-5.0); Alkaline Phosphatase 76 U/L (45-117); Aspartate Amino Transferase 17 U/L (0-37); Bilirubin,Total < 0.39 MG/DL (0.2-1.0); Blood Urea Nitrogen 14 MG/DL (7-18); Glucose 51 MG/DL (74-106); Potassium 4.3 MMOL/L (3.5-5.1); Sodium 136 MMOL/L (136-145)
--- NOTE | 2017-06-24 00:20 | Emergency Department Note ---
Arrival - Arrival Chief Complaint: Non-Specific Stated Complaint: SUGAR KEEPS DROPPING ED Nursing Triage Note: C/O Low blood sugar. Onset one hour machine captain. Pt reports that it has been dropping a lot lately. Reports that it was low yesterday. Pt states that she is supposed to take Novolin N 20units AM and 30units PM, but skipped last nights dose and this mornings dose due to low blood sugar. Pt is awake alert and oriented states she just feels jittery. FSG < 49 at time of triage. Mode of Arrival: Ambulatory Time Seen by Provider: 06/23/17 22:58 - History of Present Illness HPI Narrative: This is a 67-year-old female of descent with a history of hypertension, asthma, type 2 diabetes presents with a week of frequent low blood sugars which has prompted her to stop taking her insulin. She had another episode of altered mental status and her brought her to the emergency department where her blood sugar was found to be 46. She has no other complaints. Date of Last Menstrual Period: PM Allergies/Adverse Reactions: Allergies Allergy/AdvReac Type Severity Reaction Status Date / Time acetaminophen [From Lortab] Allergy Mild ITCHING Verified 08/14/15 18:38 hydrocodone [From Lortab] Allergy Mild ITCHING Verified 08/14/15 18:38 Home Medications: Home Medications Medication Instructions Recorded Confirmed Type Albuterol Sulfate [Ventolin HFA] 2 puff INH Q4HR 09/04/15 05/08/17 History Allopurinol 300 mg PO DAILY 09/04/15 05/08/17 History Colchicine [Colcrys] 0.6 mg PO TID 09/04/15 05/08/17 History Furosemide Tab [Lasix Tab] 80 mg PO QAM 09/04/15 05/08/17 History Gabapentin 300 mg PO BID 09/04/15 05/08/17 History Glimepiride 4 mg PO BID 09/04/15 05/08/17 History Ipratropium/Albuterol Sulfate 3 ml INH QID 09/04/15 05/08/17 History [Iprat-Albut 0.5-3(2.5) mg/3 ml] Meloxicam 7.5 mg PO DAILY 09/04/15 05/08/17 History Ranitidine Tab [Zantac Tab] 150 mg PO BID 09/04/15 05/08/17 History cloNIDine TAB [Catapres Tab] 0.3 mg PO BID 09/04/15 05/08/17 History hydroCHLOROthiazide 25 mg PO DAILY 09/04/15 05/08/17 History [Hydrochlorothiazide] Insulin NPH Human Isophane 25 unit SUBCUT BEDTIME 09/24/16 05/08/17 History [NovoLIN N] Insulin NPH Human Isophane 30 unit SUBCUT DAILY 09/24/16 05/08/17 History [NovoLIN N] Acetaminophen Tab [Tylenol Tab] 1,000 mg PO BID PRN 11/24/16 05/08/17 History Fluticasone/Salmeterol 500-50 1 puff INH BID 11/24/16 05/08/17 History [Advair 500-50] Furosemide Tab [Lasix Tab] 40 mg PO BEDTIME 11/24/16 05/08/17 History Lisinopril 10 mg PO DAILY 11/24/16 05/08/17 History Montelukast Tab [Singulair Tab] 10 mg PO BEDTIME 11/24/16 05/08/17 History traMADol TAB [Ultram] 50 mg PO BID PRN 11/24/16 05/08/17 History predniSONE TAB [PredniSONE] 10 mg PO DAILY #0 11/27/16 05/08/17 Rx Fluticasone/Vilanterol [Breo 1 puff INH DAILY 05/08/17 05/08/17 History Ellipta 200-25 Mcg INH] Naproxen Sodium [Aleve] 220 mg PO DAILY PRN 05/08/17 05/08/17 History Simvastatin 40 mg PO BEDTIME 05/08/17 05/08/17 History Theophylline ER Tab 300 mg PO DAILY 05/08/17 05/08/17 History Tramadol HCl [Ultram] 50 mg PO Q6H #20 tablet 05/08/17 Rx Verapamil HCl [Verapamil ER Tab] 240 mg PO DAILY 05/08/17 05/08/17 History Review of System - Review of System Constitutional: Absent: fever, night sweats Eyes: Absent: redness, vision change Head/Ears/Nose/Throat: Absent: epistaxis, nasal drainage Respiratory: Absent: respiratory distress, wheezing Cardiovascular: Absent: dyspnea on exertion, orthopnea Gastrointestinal: Absent: diarrhea, constipation Genitourinary female: Absent: dysuria, urgency Musculoskeletal: Absent: joint swelling, lower back pain Skin: Absent: change in color, pruritus Neurological: Absent: numbness, paresthesias Psychiatric: Absent: anxiety, depression Endocrine: Absent: heat intolerance, polydipsia Hematological/Lymphatic: Absent: easy bruising, lymphadenopathy Allergic/Immunologic: Absent: urticaria Medical,Surgical,& Family Hx - Medical History Cardio: History of: Hypertension Psychological: No history of: Psychiatric/Substance Abuse Tx, Schizophrenia, Violent Behavior, Psychiatric Problems Endocrine: History of: Diabetes Mellitus (IDDM) Respiratory: History of: Asthma - Surgical History Thoracic Surgeries: Patient denies;: Organ Transplant, Lobectomy Neurologic Surgeries: Patient denies: Neurologic Surgery Reproductive Surgeries: Surgical HX of;: Hysterectomy Patient denies;: Genitourinary Surgery Orthopedic Surgeries: Surgical HX of;: Orthopedic Surgery (Bilateral Knee scope) - Family History Family History: Reports;: Family Hypertension - Social History Smoking Status: Never smoker Frequency of Alcohol Use: None Type of Drug Use: None Exam Vital Signs: Vital Signs Temperature 99.0 F 06/23/17 21:28 Pulse Rate 108 H 06/23/17 21:28 Respiratory Rate 20 06/23/17 21:28 Blood Pressure 164/90 06/23/17 21:28 O2 Sat by Pulse Oximetry 98 06/23/17 21:28 - General Exam limited due to: ALOC - Head Head exam: Present: atraumatic, normocephalic - Eye Eye exam: Present: PERRL, EOMI - ENT ENT exam: Present: normal exam, normal oropharynx - Neck Neck exam: Present: normal inspection, full ROM - Chest Chest inspection: Present: normal inspection - Respiratory Respiratory exam: Present: normal lung sounds bilaterally - Cardiovascular Cardiovascular exam: Present: regular rate, normal rhythm - Abdominal Exam Abdominal exam: Present: soft, normal bowel sounds - Extremities Exam Extremities exam: Present: normal inspection, full ROM - Back Exam Back exam: Present: normal inspection. Absent: CVA tenderness (R), CVA tenderness (L) - Neurological Exam Neurological exam: Present: alert, oriented X3, CN II-XII intact - Psychiatric Psychiatric exam: Present: normal affect, normal mood - Skin Skin exam: Present: warm, dry Course Course Narrative: The patient had a meal and a repeat blood sugar is trending downward. Laboratory tests do not indicate renal function deterioration as a cause of decreasing insulin requirement. The blood sugar repeat is 55 and the patient's mental status seems to be deteriorating therefore it seems reasonable patient should be admitted to the hospital for further evaluation. . Results - Labs CBC & BMP: 06/23/17 21:33 06/23/17 21:33 Disposition Clinical Impression: Hypoglycemia Disposition: Still a Patient Additional Instructions: All the laboratory tests are normal. There is no sign of kidney problems. Did not find the cause of your recurrent low blood sugars. We recommended she stop the insulin initially he can see her family physician later this week. Return to the emergency department for any problems.
[2017-06-24] MEDS ORDERED: DEXTROSE 50% 25 GM/50 ML SYRINGE IV ONE (00:41)
[2017-06-24] MEDS ORDERED: DEXTROSE 50% 25 GM/50 ML VIAL IV STA (00:44)
[2017-06-24] MEDS ORDERED: DOCUSATE SODIUM 100 MG CAPSULE PO PRN (00:59)
[2017-06-24] MEDS ORDERED: ZALEPLON 5 MG CAPSULE PO PRN (00:59)
[2017-06-24] MEDS ORDERED: ONDANSETRON 4 MG/2 ML VIAL IV PRN (00:59)
[2017-06-24] MEDS ORDERED: PROMETHAZINE 25 MG TABLET PO PRN (00:59)
[2017-06-24] MEDS ORDERED: DEXTROSE 50% 25 GM/50 ML SYRINGE IV PRN (00:59)
[2017-06-24] MEDS ORDERED: GLUCAGON 1 MG VIAL IM PRN (00:59)
[2017-06-24] MEDS ORDERED: ACETAMINOPHEN 325 MG TABLET PO PRN (00:59)
--- NOTE | 2017-06-24 02:04 | Hospitalist History & Physical ---
Assessment and Plan - Time spent with patient Time spent with patient: Greater than 30 minutes (1) Hypoglycemia Status: Acute Assessment and plan: Admit to hospitalist services. Consult Stave Jointer. Believe to be related to glimepiride; hold home dose for now. Accuchecks ACHS with sliding scale insulin. D10 IV. Glucagon, PRN. Diabetic Diet UA now. CMP, HA1C, Mag and TSH in AM. Current Visit: Yes (2) Altered mental status Status: Acute Assessment and plan: Neuro checks every 4 hours. Current Visit: Yes Qualifiers: Altered mental status type: unspecified Qualified Code(s): R41.82 - Altered mental status, unspecified (3) Diabetes type 2, controlled Status: Chronic Assessment and plan: Consult family life educator. Diabetic diet. Accuchecks ACHS with sliding scale insulin. HA1C in AM. 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 Current Visit: No Qualifiers: Hypertension type: essential hypertension Qualified Code(s): I10 - Essential (primary) hypertension (5) Asthma Status: Chronic Assessment and plan: Continue home medications. Current Visit: Yes Qualifiers: Asthma severity: unspecified severity Asthma complication type: uncomplicated Qualified Code(s): J45.909 - Unspecified asthma, uncomplicated (6) Obesity (BMI 30-39.9) Status: Chronic Assessment and plan: Consult family life educator. Diabetic diet. Current Visit: No History of Present Illness Chief complaint: Low blood sugar; Altered Mental Status History of present illness: Ms. Flynn is a 67 year old female who presented to the ED accompanied by her spouse with complaints of low blood sugar and altered mental status. She has a past medical history significant for IDDM, HTN, asthma, and OA. She has a surgical history of hernia repair, tubal ligation, hysterectomy, and bilateral knee surgery. In the ED, she reports that her blood sugar has been intermittently dropping into the 40s and 50s over the last couple of days, so she stopped taking her insulin. However, she did not stop taking her Glimepiride, and her blood sugar has continued to occasionally drop. She denies any change in eating habits, weight loss, nausea, vomiting, or diarrhea. Her spouse states that when her blood sugar gets low, she would "start talking out of her head." He would give her some orange juice, and the blood sugar would go up for a while but then go back down again. In the ED, she was given an amp of D50 which brought her blood sugar up to >100, and she was considered for discharge. However, before she was discharged, her spouse informed staff that she was "not acting right" again. It was discovered that her blood sugar had dropped again and hospitalist services were consulted for admission. Home Medications Medication Instructions Recorded Confirmed Type Albuterol Sulfate [Ventolin HFA] 2 puff INH Q4HR 09/04/15 05/08/17 History Allopurinol 300 mg PO DAILY 09/04/15 05/08/17 History Colchicine [Colcrys] 0.6 mg PO TID 09/04/15 05/08/17 History Furosemide Tab [Lasix Tab] 80 mg PO QAM 09/04/15 05/08/17 History Gabapentin 300 mg PO BID 09/04/15 05/08/17 History Glimepiride 4 mg PO BID 09/04/15 05/08/17 History Ipratropium/Albuterol Sulfate 3 ml INH QID 09/04/15 05/08/17 History [Iprat-Albut 0.5-3(2.5) mg/3 ml] Meloxicam 7.5 mg PO DAILY 09/04/15 05/08/17 History Ranitidine Tab [Zantac Tab] 150 mg PO BID 09/04/15 05/08/17 History cloNIDine TAB [Catapres Tab] 0.3 mg PO BID 09/04/15 05/08/17 History hydroCHLOROthiazide 25 mg PO DAILY 09/04/15 05/08/17 History [Hydrochlorothiazide] Insulin NPH Human Isophane 25 unit SUBCUT BEDTIME 09/24/16 05/08/17 History [NovoLIN N] Insulin NPH Human Isophane 30 unit SUBCUT DAILY 09/24/16 05/08/17 History [NovoLIN N] Acetaminophen Tab [Tylenol Tab] 1,000 mg PO BID PRN 11/24/16 05/08/17 History Fluticasone/Salmeterol 500-50 1 puff INH BID 11/24/16 05/08/17 History [Advair 500-50] Furosemide Tab [Lasix Tab] 40 mg PO BEDTIME 11/24/16 05/08/17 History Lisinopril 10 mg PO DAILY 11/24/16 05/08/17 History Montelukast Tab [Singulair Tab] 10 mg PO BEDTIME 11/24/16 05/08/17 History traMADol TAB [Ultram] 50 mg PO BID PRN 11/24/16 05/08/17 History predniSONE TAB [PredniSONE] 10 mg PO DAILY #0 11/27/16 05/08/17 Rx Fluticasone/Vilanterol [Breo 1 puff INH DAILY 05/08/17 05/08/17 History Ellipta 200-25 Mcg INH] Naproxen Sodium [Aleve] 220 mg PO DAILY PRN 05/08/17 05/08/17 History Simvastatin 40 mg PO BEDTIME 05/08/17 05/08/17 History Theophylline ER Tab 300 mg PO DAILY 05/08/17 05/08/17 History Tramadol HCl [Ultram] 50 mg PO Q6H #20 tablet 05/08/17 Rx Verapamil HCl [Verapamil ER Tab] 240 mg PO DAILY 05/08/17 05/08/17 History Allergies Allergy/AdvReac Type Severity Reaction Status Date / Time acetaminophen [From Lortab] Allergy Mild ITCHING Verified 08/14/15 18:38 hydrocodone [From Lortab] Allergy Mild ITCHING Verified 08/14/15 18:38 Medical,Surgical,& Family Hx - Medical History Cardio: History of: Hypertension Psychological: No history of: Psychiatric/Substance Abuse Tx, Schizophrenia, Violent Behavior, Psychiatric Problems Endocrine: History of: Diabetes Mellitus (IDDM) Respiratory: History of: Asthma Musculoskeletal: History of: Musculoskeletal Problems (OA) - Surgical History Thoracic Surgeries: Patient denies;: Organ Transplant, Lobectomy Neurologic Surgeries: Patient denies: Neurologic Surgery Abdominal Surgeries: Surgical HX of: Hernia Repair Reproductive Surgeries: Surgical HX of;: Hysterectomy, Tubal Ligation Patient denies;: Genitourinary Surgery Orthopedic Surgeries: Surgical HX of;: Orthopedic Surgery (Bilateral Knee scope) - Family History Family History: Reports;: Family Cancer (sister: breast; sister: lung), Family Diabetes, Family Hypertension - Social History Smoking Status: Never smoker Have you smoked in the last 12 months: No Frequency of Alcohol Use: None Type of Drug Use: None Marital Status: Lives With:: Spouse Functional capacity: independent ambulation 12 point system: reviewed and no additional remarkable complaints except as stated - Constitutional Constitutional: Present: other (Denies decreased appetite). Absent: weight loss - EENT Eyes: Absent: blurry vision, diplopia Ears: Absent: decreased hearing, ear discharge, tinnitus Nose, mouth and throat: Absent: headache(s), nasal congestion, sore throat - Cardiovascular Cardiovascular: Absent: chest pain at rest, chest pain with activity, dyspnea, edema, orthopnea, palpitations - Respiratory Respiratory: Absent: dyspnea, wheezing - Gastrointestinal Gastrointestinal: Absent: abdominal pain, constipation, diarrhea, nausea, vomiting - Genitourinary Genitourinary: Absent: dysuria, urinary frequency - Musculoskeletal Musculoskeletal: Present: arthralgias (Bilateral knees). Absent: muscle weakness, myalgias - Neurological Neurological: Present: behavioral changes. Absent: disequilibrium, dizziness, syncope - Psychiatric Psychiatric: Absent: anxiety, depression, memory loss - Endocrine Endocrine: Absent: polydipsia, polyphagia, polyuria - Hematologic/Lymphatic Hematologic/Lymphatic: Absent: easy bleeding, easy bruising Exam - Constitutional Vitals: Period Temp Pulse Resp BP Sys/Barnhart Pulse Ox Last 24 Hr 99 F-99.0 F 89-108 18-20 127-164/76-90 98-99 Exam: Constitutional System: Well developed. Afebrile. Awake, alert and oriented x3. No distress. No tremulousness. Head: Normocephalic, atraumatic. Ears, Nose and Throat System: No pain or tenderness. No epistaxis or discharge Eyes System: Pupils equal, round, and reactive. Extraocular muscles intact. Neck: Supple, without adenopathy, No jugular venous distention. No thyromegaly, neck mass, or prior surgery apparent. Respiratory System: Chest clear to auscultation. Cardiovascular System: Heart with regular rate and rhythm. No murmur. GI System: Abdomen soft, nontender. Normo active bowel sounds present. Musculoskeletal System: limbs with no pedal edema. Full distal pulses. Normal capillary refill. Neurological System: No discernable sensory deficit. No aphasia Psychiatric System: Conversation is rational Results - Labs CBC & BMP: 06/23/17 21:33 06/23/17 21:33 Lab Results: I have reviewed the past 24 hour labs
[2017-06-24] MEDS: DEXTROSE 10% 1,000 ML IV SCH ×4 (02:43→20:38)
[2017-06-24] MEDS: INSULIN LISPRO 100 UNIT/ML SUBCUT SCH ×6 (02:44→21:16)
[2017-06-24] MEDS: ENOXAPARIN 40 MG/0.4 ML SYRINGE SUBCUT SCH (02:55)
[2017-06-24 06:32] LABS: Albumin 3.1 G/DL (3.4-5.0); Bilirubin,Total 0.4 MG/DL (0.2-1.0); Calcium 9.1 MG/DL (8.5-10.1); Magnesium 2.3 MG/DL (1.8-2.4); Osmolality,Calculated 271.8 MOS/KG (273-304); Potassium 3.8 MMOL/L (3.5-5.1); Thyroid Stimulating Hormone 0.924 uIU/ml (0.358-3.74); Total Protein 5.8 G/DL (6.4-8.3)
[2017-06-24] MEDS: PANTOPRAZOLE 40 MG TABLET PO SCH (08:28)
--- NOTE | 2017-06-24 08:29 | Event Note ---
Patient has been seen and examined by me personally this morning. This is 67- year-old diabetic female who was admitted with altered mental status and noted to be hypoglycemic which is felt secondary to her oral agent. She reports no recent change in her diabetic regimen or diet. She remains on IV D10 with blood sugars in the 70s. She is sitting upright in the bed and mentally alert eating her breakfast. On exam she is afebrile vital signs are stable. Neurologic exam she is awake alert oriented results from spontaneously and has symmetric strength and reflexes. Cardiovascular regular rate and rhythm. Lungs are clear. Abdomen soft nontender. Plan continue IV glucose supplementation while holding her oral agents. When blood sugars stabilized we will discontinue the IV glucose and follow closely.
[2017-06-24] MEDS: LISINOPRIL 10 MG TABLET PO SCH (13:52)
[2017-06-24] MEDS: ALBUTEROL/IPRATROPIUM 3 ML NEB RESP TX SCH ×2 (15:00→19:53)
[2017-06-24] MEDS: SODIUM CHLORIDE 0.9% 1,000 ML IV SCH (17:53)
[2017-06-24] MEDS ORDERED: SIMVASTATIN 40 MG TABLET PO SCH (21:00)
[2017-06-24] MEDS ORDERED: MONTELUKAST 10 MG TABLET PO SCH (21:00)
[2017-06-24] MEDS: FLUTICASONE/SALMETEROL 500-50 DISKUS 14 DOSE INH SCH (21:15)
[2017-06-25] MEDS: INSULIN LISPRO 100 UNIT/ML SUBCUT SCH ×2 (02:28→05:29)
[2017-06-25] MEDS: ENOXAPARIN 40 MG/0.4 ML SYRINGE SUBCUT SCH (02:28)
[2017-06-25] MEDS: ALBUTEROL/IPRATROPIUM 3 ML NEB RESP TX SCH ×3 (07:52→10:56)
[2017-06-25] MEDS: SODIUM CHLORIDE 0.9% 1,000 ML IV SCH (08:14)
--- NOTE | 2017-06-25 08:24 | Discharge Summary ---
Hospital Course - Hospital Course Hospital Course: Discharge diagnosis: 1. Type II DM with hypoglycemia The patient presented to the hospital for evaluation of hypoglycemia. She is on insulin and a sulfonylurea at home. She says that she has not been taking her insulin lately because her blood sugar has been adequately controlled with the sulfonylurea. In fact, she has been running low at home even on just the oral agent. She was noted to be hypoglycemic in the emergency room. Insulin and glyburide were discontinued, and she was started on a dextrose infusion. Glucoses are now greater than 200, likely because the glyburide has been metabolized. She feels fine, and we will let her go home. She can follow-up with her local physician within the next few days to determine next steps regarding glucose management. Medication reconciliation has been performed. ADA diet. Activity as tolerated. This note was completed using [employer] voice recognition software. There may be high school foreign language tutor errors as a result. Discharge Plan - Discharge Data Disposition: Disch To Home/Self Care Discharge Diet: advance to your usual diet Activity: resume usual activities as tolerated Hygiene: no restrictions Weight Bearing at Discharge: full weight bearing - Discharge Medications Continue Gabapentin 300 mg PO BID Allopurinol 300 mg PO DAILY Colchicine [Colcrys] 0.6 mg PO TID Albuterol Sulfate [Ventolin HFA] 2 puff INH Q4HR Furosemide Tab [Lasix Tab] 80 mg PO QAM Ranitidine Tab [Zantac Tab] 150 mg PO BID Meloxicam 7.5 mg PO DAILY hydroCHLOROthiazide [Hydrochlorothiazide] 25 mg PO DAILY cloNIDine TAB [Catapres Tab] 0.3 mg PO BID Ipratropium/Albuterol Sulfate [Iprat-Albut 0.5-3(2.5) mg/3 ml] 3 ml INH QID traMADol TAB [Ultram] 50 mg PO BID PRN PRN Reason: Pain Lisinopril 10 mg PO DAILY Acetaminophen Tab [Tylenol Tab] 1,000 mg PO BID PRN PRN Reason: Pain Fluticasone/Salmeterol 500-50 [Advair 500-50] 1 puff INH BID Verapamil HCl [Verapamil ER Tab] 240 mg PO DAILY Simvastatin 40 mg PO BEDTIME Montelukast Tab [Singulair Tab] 10 mg PO BEDTIME Furosemide Tab [Lasix Tab] 40 mg PO BEDTIME predniSONE TAB [PredniSONE] 10 mg PO DAILY #0 Fluticasone/Vilanterol [Breo Ellipta 200-25 Mcg INH] 1 puff INH DAILY Theophylline ER Tab 300 mg PO DAILY Tramadol HCl [Ultram] 50 mg PO Q6H #20 tablet Discontinued Glimepiride 4 mg PO BID Insulin NPH Human Isophane [NovoLIN N] 30 unit SUBCUT DAILY Insulin NPH Human Isophane [NovoLIN N] 25 unit SUBCUT BEDTIME Naproxen Sodium [Aleve] 220 mg PO DAILY PRN PRN Reason: Pain - Follow Up or Referral - Forms/Instructions Exam - Constitutional Vitals: Period Temp Pulse Resp BP Sys/Barnhart Pulse Ox Last 24 Hr 97.1 F-98.4 F 70-90 15-20 108-185/55-94 96-100 Vital signs are noted above. Heart is regular with distant tones and no murmur. Lungs are clear with no rales or wheezes. Discharge Results Procedures and tests throughout hospitalization: Pending Orders 06/24/17 01:01 Urinalysis Routine 06/24/17 02:52 Urine Culture Routine Labs on day of discharge: Labs from last 24 hours 06/25/17 06/25/17 06/24/17 07:14 04:46 23:56 POC Glucose 141 H 156 H 229 H 06/24/17 06/24/17 06/24/17 20:27 16:14 11:59 POC Glucose 199 H 230 H 122 H 06/23/17 21:22 POC Glucose 49 L* DS: Provider Date of admission: 06/24/17 00:59 Primary care physician: Alejandro Akhtar MD Attending physician on admission: Morenita Fan MD Consults: 06/24/17 01:01 Consult to Case Mgmt/Social Srvs [CONS] Routine Reason for Case Mgmt/Social Srvs: Discharge Planning Consult to [facility], Educator [CONS] Routine Reason for Manager Neonatal: Diabetes Education 06/24/17 02:34 Consult to Pastoral Services [CONS] Routine Comment: Pastoral Screen: Request [employer] Visit Pastoral Screen Source of Request: Patient Discharging clinician: Chase Jolly MD Expected date of discharge: 06/25/17
[2017-06-25] MEDS ORDERED: hydroCHLOROthiazide 25 MG TABLET PO SCH (09:00)
[2017-06-25 09:14] VITALS: BP 133/63
[2017-06-25] MEDS: LISINOPRIL 10 MG TABLET PO SCH (09:30)
[2017-06-25] MEDS: PANTOPRAZOLE 40 MG TABLET PO SCH (09:30)
[2017-06-25] MEDS: FLUTICASONE/SALMETEROL 500-50 DISKUS 14 DOSE INH SCH (09:30)
== END 2017-06-25 10:38 | disposition home or self-care (01) ==
LOC: N.EDINP 21:15 → N.ED 21:15 → SUATTDRO 06-24 00:59 → N.TELES 06-24 01:42 → N.4E 06-24 20:00
PROVIDERS: ADMIT Family Medicine; ATTEND Internal Medicine Geriatric Medicine

== ENCOUNTER 2017-11-14 13:45 | Observation (INO) ==
[2017-11-14] MEDS ORDERED: methylPREDNISolone SOD SUC 125 MG/2 ML VIAL IV STA (14:13)
[2017-11-14] MEDS ORDERED: ALBUTEROL NEB SOLN 5 MG/ML 20 ML/BOTTLE CONT NEB STA (14:13)
[2017-11-14] MEDS ORDERED: methylPREDNISolone SOD SUC 125 MG/2 ML VIAL ONE (14:17)
[2017-11-14 15:57] LABS: Basophils # 0.1 10*3/uL (0.0-0.2); Basophils % 0.5 % (0.0-0.8); Eosinophils # 0.1 10*3/uL (0.0-0.87); Eosinophils % 0.4 % (0.00-10.9); Hematocrit 38.1 VOL% (35.7-47.0); Hemoglobin 12.6 GM/DL (12.0-16.0); Immature Granulocytes % 1.2 %; Immature Granulocytes Absolute 0.16 #; Lymphocytes # 0.8 10*3/uL (1.4-4.0); Lymphocytes % 6.3 % (21.3-54.2); Mean Corpuscular HGB Conc 33.1 GM/DL (32-36); Mean Corpuscular Hemoglobin 29 PG (27-34); Mean Corpuscular Volume 88.4 FL (87-102); Mean Platelet Volume 10.1 FL (9.6-12.0); Monocytes # 2.3 10*3/uL (0.11-0.8); Monocytes % 17.5 % (1.7-12.7); Neutrophils # 9.6 10*3/uL (1.4-7.4); Neutrophils % 74.1 % (38.7-73.9); Platelet Count 264 T/CUMM (130-400); Red Blood Count 4.31 MC/CUMM (3.8-5.5); Red Cell Distribution Width 15.2 % (9.3-17.3)
[2017-11-14 16:10] LABS: Alanine Aminotransferase 23 U/L (13-56); Albumin 3.5 G/DL (3.4-5.0); Alkaline Phosphatase 99 U/L (45-117); Aspartate Amino Transferase 13 U/L (0-37); Bilirubin,Total < 0.39 MG/DL (0.2-1.0); Blood Urea Nitrogen 25 MG/DL (7-18); Calcium 8.9 MG/DL (8.5-10.1); Glucose 111 MG/DL (74-106); Osmolality,Calculated 285.3 MOS/KG (273-304); Sodium 141 MMOL/L (136-145); Total Protein 6.9 G/DL (6.4-8.3)
[2017-11-14] MEDS ORDERED: ALBUTEROL 2.5 MG/3 ML NEB RESP TX PRN (16:22)
[2017-11-14] MEDS ORDERED: MAGNESIUM SULF RIDER 2 GM in PREMIX 1 EACH IV ONE (16:22)
[2017-11-14] MEDS ORDERED: ONDANSETRON 4 MG/2 ML VIAL IV PRN (16:24)
[2017-11-14] MEDS ORDERED: GLUCAGON 1 MG VIAL IM PRN (16:24)
[2017-11-14] MEDS ORDERED: DEXTROSE 50% 25 GM/50 ML VIAL IV PRN (16:24)
[2017-11-14] MEDS ORDERED: SODIUM CHLORIDE 0.45% 1,000 ML IV SCH (17:00)
[2017-11-14] MEDS ORDERED: ACETAMINOPHEN 500 MG TABLET PO PRN (18:08)
[2017-11-14] MEDS ORDERED: traMADol 50 MG TABLET PO PRN (18:08)
[2017-11-14 18:53] LABS: Atypical Lymphocytes Few; Band Neutrophils 6 % (0-10); Eosinophils 1 % (0-10); Lymphocytes 9 % (20-55); Platelet Estimate Normal; Promyelocytes 2 %; Segmented Neutrophils 59 % (50-85); Smudge Cells Few; Total Cells Counted 100
[2017-11-14] MEDS: ALBUTEROL 2.5 MG/3 ML NEB RESP TX SCH (19:53)
[2017-11-14] MEDS: ENOXAPARIN 40 MG/0.4 ML SYRINGE SUBCUT SCH (20:39)
[2017-11-14] MEDS: FAMOTIDINE 20 MG TABLET PO SCH (20:40)
[2017-11-14] MEDS: GABAPENTIN 300 MG CAPSULE PO SCH (20:40)
[2017-11-14] MEDS: SIMVASTATIN 40 MG TABLET PO SCH (20:40)
[2017-11-14] MEDS: DOXYCYCLINE HYCLATE 100 MG CAPSULE PO SCH (20:40)
[2017-11-14] MEDS: INSULIN NPH 100 UNIT/ML SUBCUT SCH (20:41)
[2017-11-14] MEDS: MONTELUKAST 10 MG TABLET PO SCH (20:41)
[2017-11-14] MEDS: INSULIN LISPRO 100 UNIT/ML SUBCUT SCH ×2 (20:42→21:43)
[2017-11-14] MEDS: FLUTICASONE/SALMETEROL 500-50 DISKUS 14 DOSE INH SCH (20:52)
[2017-11-14] MEDS: methylPREDNISolone SOD SUC 125 MG/2 ML VIAL IV SCH (22:43)
[2017-11-15] MEDS: ALBUTEROL 2.5 MG/3 ML NEB RESP TX SCH ×4 (02:18→19:43)
[2017-11-15] MEDS: methylPREDNISolone SOD SUC 125 MG/2 ML VIAL IV SCH ×2 (05:17→10:18)
[2017-11-15] MEDS ORDERED: NON-FORMULARY MEDICATION (Fluticasone/Vilanterol [Breo Ellipta 200-25 Mcg Inh] 1 PUFF) INH SCH (09:00)
[2017-11-15] MEDS: INSULIN LISPRO 100 UNIT/ML SUBCUT SCH ×4 (10:15→21:50)
[2017-11-15] MEDS: INSULIN NPH 100 UNIT/ML SUBCUT SCH ×2 (10:18→16:13)
[2017-11-15] MEDS: DOXYCYCLINE HYCLATE 100 MG CAPSULE PO SCH ×2 (10:19→21:50)
[2017-11-15] MEDS: ALLOPURINOL 300 MG TABLET PO SCH (10:19)
[2017-11-15] MEDS: COLCHICINE 0.6 MG TABLET PO SCH (10:19)
[2017-11-15] MEDS: THEOPHYLLINE ER 300 MG TABLET PO SCH (10:19)
[2017-11-15] MEDS: VERAPAMIL SR 240 MG TABLET PO SCH (10:19)
[2017-11-15] MEDS: LISINOPRIL 10 MG TABLET PO SCH (10:19)
[2017-11-15] MEDS: FUROSEMIDE 80 MG TABLET PO SCH (10:20)
[2017-11-15] MEDS: FAMOTIDINE 20 MG TABLET PO SCH ×2 (10:20→21:50)
[2017-11-15] MEDS: GABAPENTIN 300 MG CAPSULE PO SCH ×2 (10:20→21:50)
[2017-11-15] MEDS: FLUTICASONE/SALMETEROL 500-50 DISKUS 14 DOSE INH SCH ×2 (10:25→21:50)
[2017-11-15] MEDS: FUROSEMIDE 40 MG TABLET PO SCH (13:54)
[2017-11-15] MEDS: predniSONE 10 MG TABLET PO SCH (21:50)
[2017-11-15] MEDS: SIMVASTATIN 40 MG TABLET PO SCH (21:50)
[2017-11-15] MEDS: ENOXAPARIN 40 MG/0.4 ML SYRINGE SUBCUT SCH (21:50)
[2017-11-15] MEDS: MONTELUKAST 10 MG TABLET PO SCH (21:50)
[2017-11-16] MEDS: ALBUTEROL 2.5 MG/3 ML NEB RESP TX SCH ×2 (01:39→07:20)
[2017-11-16 06:35] LABS: Calcium 8.4 MG/DL (8.5-10.1); Osmolality,Calculated 295.3 MOS/KG (273-304); Potassium 3.4 MMOL/L (3.5-5.1)
[2017-11-16 07:57] VITALS: BP 145/65
[2017-11-16] MEDS: INSULIN NPH 100 UNIT/ML SUBCUT SCH (08:18)
[2017-11-16] MEDS: FLUTICASONE/SALMETEROL 500-50 DISKUS 14 DOSE INH SCH (08:19)
[2017-11-16] MEDS: INSULIN LISPRO 100 UNIT/ML SUBCUT SCH ×2 (08:19→11:53)
[2017-11-16] MEDS: VERAPAMIL SR 240 MG TABLET PO SCH (08:19)
[2017-11-16] MEDS: FUROSEMIDE 80 MG TABLET PO SCH (08:20)
[2017-11-16] MEDS: COLCHICINE 0.6 MG TABLET PO SCH (08:20)
[2017-11-16] MEDS: GABAPENTIN 300 MG CAPSULE PO SCH (08:20)
[2017-11-16] MEDS: LISINOPRIL 10 MG TABLET PO SCH (08:21)
[2017-11-16] MEDS: THEOPHYLLINE ER 300 MG TABLET PO SCH (08:21)
[2017-11-16] MEDS: FAMOTIDINE 20 MG TABLET PO SCH (08:21)
[2017-11-16] MEDS: predniSONE 10 MG TABLET PO SCH (08:21)
[2017-11-16] MEDS: ALLOPURINOL 300 MG TABLET PO SCH (08:22)
[2017-11-16] MEDS: DOXYCYCLINE HYCLATE 100 MG CAPSULE PO SCH (08:22)
[2017-11-16] MEDS: FUROSEMIDE 40 MG TABLET PO SCH (11:54)
== END 2017-11-16 11:45 | disposition home or self-care (01) ==
LOC: N.EDINP 13:45 → N.ED 13:45 → N.2E 18:08
PROVIDERS: ADMIT Internal Medicine Cardiovascular Disease; ATTEND Internal Medicine Cardiovascular Disease

== ENCOUNTER 2018-07-14 12:34 | Inpatient (IN) ==
[2018-07-14 13:16] LABS: Hematocrit 40.2 VOL% (35.7-47.0); Hemoglobin 12.7 GM/DL (12.0-16.0); Lymphocytes % 8.5 % (21.3-54.2); Mean Corpuscular HGB Conc 31.6 GM/DL (32-36); Mean Corpuscular Hemoglobin 29 PG (27-34); Mean Corpuscular Volume 91.8 FL (87-102); Neutrophils % 86.3 % (38.7-73.9); Platelet Count 213 T/CUMM (130-400); Red Blood Count 4.38 MC/CUMM (3.8-5.5); White Blood Count 9.5 T/CUMM (4-12)
[2018-07-14 13:17] LABS: Basophils # 0.1 10*3/uL (0.0-0.2); Basophils % 0.6 % (0.0-0.8); Eosinophils % 0.2 % (0.00-10.9); Immature Granulocytes % 0.8 %; Immature Granulocytes Absolute 0.08 #; Lymphocytes # 0.8 10*3/uL (1.4-4.0); Monocytes # 0.3 10*3/uL (0.11-0.8); Monocytes % 3.6 % (1.7-12.7); Neutrophils # 8.2 10*3/uL (1.4-7.4)
[2018-07-14 13:53] LABS: Alanine Aminotransferase 25 U/L (13-56); Albumin 3.1 G/DL (3.4-5.0); Alkaline Phosphatase 98 U/L (45-117); Aspartate Amino Transferase 16 U/L (0-37); Bilirubin,Total < 0.39 MG/DL (0.2-1.0); Blood Urea Nitrogen 22 MG/DL (7-18); Calcium 8.4 MG/DL (8.5-10.1); Glucose 298 MG/DL (74-106); Osmolality,Calculated 294.3 MOS/KG (273-304); Potassium 4.2 MMOL/L (3.5-5.1); Sodium 141 MMOL/L (136-145); Total Protein 6.4 G/DL (6.4-8.3)
[2018-07-14 15:37] LABS: ABG Base Excess 0.9 MMOL/L (-2.5-2.5); ABG HCO3 25.1 MMOL/L (20-26); ABG Oxygen Saturation 96.8 % (95-100); ABG PCO2 44.3 MM HG (35-48); ABG PH 7.382 (7.35-7.45); ABG PO2 89.4 MM HG (80-95)
[2018-07-15 04:29] LABS: Basophils % 0.2 % (0.0-0.8); Hematocrit 41.2 VOL% (35.7-47.0); Hemoglobin 13.1 GM/DL (12.0-16.0); Immature Granulocytes % 0.7 %; Immature Granulocytes Absolute 0.09 #; Lymphocytes # 1.3 10*3/uL (1.4-4.0); Lymphocytes % 9.9 % (21.3-54.2); Mean Corpuscular HGB Conc 31.8 GM/DL (32-36); Mean Corpuscular Hemoglobin 29 PG (27-34); Mean Corpuscular Volume 90.2 FL (87-102); Mean Platelet Volume 10.5 FL (9.6-12.0); Monocytes # 0.6 10*3/uL (0.11-0.8); Monocytes % 4.8 % (1.7-12.7); Neutrophils # 10.6 10*3/uL (1.4-7.4); Neutrophils % 84.4 % (38.7-73.9); Platelet Count 247 T/CUMM (130-400); Red Blood Count 4.57 MC/CUMM (3.8-5.5); Red Cell Distribution Width 14.9 % (9.3-17.3); White Blood Count 12.6 T/CUMM (4-12)
[2018-07-15 05:00] LABS: Calcium 9.4 MG/DL (8.5-10.1); Osmolality,Calculated 294.1 MOS/KG (273-304); Potassium 3.6 MMOL/L (3.5-5.1); Risk Ratio 2.55; Thyroid Stimulating Hormone 0.279 uIU/ml (0.358-3.74); VLDL CHOLESTEROL 20.4 MG/DL
[2018-07-15 14:51] LABS: Apearance,Urine Slightly Hazy (Clear); Bacteria,Urine Occasional /HPF (Few); Bilirubin,Urine Negative (Negative); Blood, Urine Negative (Negative); Glucose,Urine (UA) Negative (Negative); Hyaline Casts,Urine 4 /LPF (0-3); Ketones,Urine Negative (Negative); Nitrite,Urine Negative (Negative); Protein,Urine Negative; RBC,Urine 1 /HPF (0-4); Squamous Epithelial Cell,Urine Occasional /HPF (0-10); Urine Color Yellow (Yellow); Urine Specific Gravity 1.011 (1.001-1.035); Urine Urobilinogen < 2.0 EU/DL (0.2-1.0); WBC,Urine 3 /HPF (0-6)
[2018-07-16 05:11] LABS: Basophils % 0.3 % (0.0-0.8); Eosinophils % 0.3 % (0.00-10.9); Hematocrit 40.8 VOL% (35.7-47.0); Hemoglobin 13.1 GM/DL (12.0-16.0); Immature Granulocytes % 0.6 %; Immature Granulocytes Absolute 0.08 #; Lymphocytes # 2.9 10*3/uL (1.4-4.0); Lymphocytes % 22.6 % (21.3-54.2); Mean Corpuscular HGB Conc 32.1 GM/DL (32-36); Mean Corpuscular Hemoglobin 29 PG (27-34); Mean Corpuscular Volume 88.7 FL (87-102); Mean Platelet Volume 10.8 FL (9.6-12.0); Monocytes % 8.2 % (1.7-12.7); Neutrophils # 8.7 10*3/uL (1.4-7.4); Platelet Count 250 T/CUMM (130-400); Red Cell Distribution Width 15.1 % (9.3-17.3); White Blood Count 12.8 T/CUMM (4-12)
[2018-07-16 05:47] LABS: Calcium 8.9 MG/DL (8.5-10.1); Potassium 3.5 MMOL/L (3.5-5.1)
[2018-07-17 04:27] LABS: Basophils % 0.4 % (0.0-0.8); Eosinophils # 0.1 10*3/uL (0.0-0.87); Eosinophils % 0.7 % (0.00-10.9); Hematocrit 39.1 VOL% (35.7-47.0); Hemoglobin 12.4 GM/DL (12.0-16.0); Immature Granulocytes % 0.9 %; Immature Granulocytes Absolute 0.09 #; Lymphocytes # 2.6 10*3/uL (1.4-4.0); Lymphocytes % 25.1 % (21.3-54.2); Mean Corpuscular HGB Conc 31.7 GM/DL (32-36); Mean Corpuscular Hemoglobin 29 PG (27-34); Mean Corpuscular Volume 91.1 FL (87-102); Mean Platelet Volume 10.7 FL (9.6-12.0); Monocytes % 9.4 % (1.7-12.7); Neutrophils # 6.6 10*3/uL (1.4-7.4); Neutrophils % 63.5 % (38.7-73.9); Platelet Count 241 T/CUMM (130-400); Red Blood Count 4.29 MC/CUMM (3.8-5.5); Red Cell Distribution Width 14.9 % (9.3-17.3); White Blood Count 10.4 T/CUMM (4-12)
[2018-07-17 05:01] LABS: Calcium 8.5 MG/DL (8.5-10.1); Osmolality,Calculated 289.1 MOS/KG (273-304); Potassium 3.5 MMOL/L (3.5-5.1)
[2018-07-17 11:16] VITALS: BP 149/70
== END 2018-07-17 13:30 | disposition home health service (06) | DRG 203 ==
LOC: N.ED 12:34 → N.EDINP 14:41 → N.TELEN 17:03
PROVIDERS: ADMIT Internal Medicine; ATTEND Internal Medicine
PROC: CLCCHCL (ICD-10-PCS; 2018-07-16 09:15)

== ENCOUNTER 2018-11-27 05:30 | Inpatient (IN) ==
[2018-11-06 10:27] LABS: Basophils % 0.3 % (0.0-0.8); Eosinophils % 0.2 % (0.00-10.9); Hematocrit 40.3 VOL% (35.7-47.0); Hemoglobin 12.5 GM/DL (12.0-16.0); Immature Granulocytes % 0.8 %; Lymphocytes % 8.3 % (21.3-54.2); Mean Corpuscular Hemoglobin 28 PG (27-34); Mean Corpuscular Volume 88.8 FL (87-102); Monocytes # 0.7 10*3/uL (0.11-0.8); Monocytes % 5.3 % (1.7-12.7); Neutrophils # 10.5 10*3/uL (1.4-7.4); Neutrophils % 85.1 % (38.7-73.9); Platelet Count 231 T/CUMM (130-400); Red Blood Count 4.54 MC/CUMM (3.8-5.5); White Blood Count 12.4 T/CUMM (4-12)
[2018-11-06 10:35] LABS: Apearance,Urine CLEAR (Clear); Bacteria,Urine Occasional /HPF (Few); Bilirubin,Urine Negative (Negative); Blood, Urine Negative (Negative); Glucose,Urine (UA) Negative (Negative); Ketones,Urine Negative (Negative); Mucus,Urine Occasional /LPF (Occasional); Nitrite,Urine Negative (Negative); Protein,Urine Negative; RBC,Urine 1 /HPF (0-4); Squamous Epithelial Cell,Urine Occasional /HPF (0-10); Urine Color Straw (Yellow); Urine Specific Gravity 1.008 (1.001-1.035); Urine Urobilinogen < 2.0 EU/DL (0.2-1.0); WBC,Urine <1 /HPF (0-6)
[2018-11-06 11:01] LABS: Calcium 8.8 MG/DL (8.5-10.1); Osmolality,Calculated 290.4 MOS/KG (273-304); Potassium 3.7 MMOL/L (3.5-5.1)
[2018-11-27] MEDS ORDERED: ALVIMOPAN 12 MG CAPSULE PO ONE (06:00)
[2018-11-27] MEDS ORDERED: cefTRIAXone 1,000 MG in SYRINGE 1 EACH IV ONE (06:00)
[2018-11-27] MEDS: LACTATED RINGERS 1,000 ML IV SCH (06:36)
[2018-11-27] MEDS ORDERED: PANTOPRAZOLE 40 MG TABLET PO STA (06:47)
[2018-11-27] MEDS ORDERED: cefTRIAXone 1,000 MG VIAL ONE (06:50)
[2018-11-27] MEDS ORDERED: ALVIMOPAN 12 MG CAPSULE ONE (06:50)
[2018-11-27 09:03] LABS: Apearance,Urine CLEAR (Clear); Bilirubin,Urine Negative (Negative); Blood, Urine Negative (Negative); Glucose,Urine (UA) Negative (Negative); Ketones,Urine 5 mg/dL (Negative); Mucus,Urine Occasional /LPF (Occasional); Nitrite,Urine Negative (Negative); Protein,Urine 30 MG/DL; RBC,Urine 4 /HPF (0-4); Squamous Epithelial Cell,Urine Occasional /HPF (0-10); Urine Color Yellow (Yellow); Urine Specific Gravity 1.024 (1.001-1.035); WBC,Urine 2 /HPF (0-6)
[2018-11-27] MEDS ORDERED: ROPIVACAINE 0.5% 30 ML VIAL ONE (09:08)
[2018-11-27] MEDS ORDERED: ONDANSETRON 4 MG/2 ML VIAL IV PRN (10:08)
[2018-11-27] MEDS ORDERED: fentaNYL 100 MCG/2 ML VIAL ONE (10:12)
[2018-11-27] MEDS ORDERED: SEVOFLURANE 1 UNIT/15 MINUTE INH ONE (10:12)
[2018-11-27] MEDS ORDERED: PROPOFOL 200 MG/20 ML VIAL IV ONE (10:12)
[2018-11-27] MEDS ORDERED: MANNITOL 100 GM/500 ML BAG IV ONE (10:12)
[2018-11-27] MEDS ORDERED: LACTATED RINGERS 1,000 ML IV ONE (10:13)
[2018-11-27] MEDS ORDERED: methylPREDNISolone SOD SUC 125 MG/2 ML VIAL ONE (10:13)
[2018-11-27] MEDS ORDERED: MIDAZOLAM 2 MG/2 ML VIAL ONE (10:13)
[2018-11-27] MEDS ORDERED: GLYCOPYRROLATE 0.4 MG/2 ML VIAL ONE (10:13)
[2018-11-27] MEDS ORDERED: NEOSTIGMINE 10 MG/10 ML VIAL ONE (10:13)
[2018-11-27] MEDS ORDERED: SUCCINYLCHOLINE 200 MG/10 ML VIAL ONE (10:13)
[2018-11-27] MEDS ORDERED: PHENYLEPHRINE 1 MG/10 ML SYRINGE IV ONE (10:13)
[2018-11-27] MEDS ORDERED: ePHEDrine 50 MG/ML AMP ONE (10:16)
[2018-11-27] MEDS ORDERED: HYDROmorphone PCA 30 MG/30 ML SYRINGE IV SCH (10:30)
[2018-11-27] MEDS ORDERED: HYDROmorphone 2 MG/1 ML VIAL IV ONE (11:30)
[2018-11-27] MEDS: SODIUM CHLORIDE 0.9% 1,000 ML IV SCH (11:48)
[2018-11-27] MEDS: HYDROmorphone 2 MG/1 ML VIAL IV PRN ×3 (15:02→22:26)
[2018-11-27] MEDS: INSULIN LISPRO 100 UNIT/ML SUBCUT SCH ×2 (16:56→22:24)
[2018-11-27] MEDS ORDERED: ALBUTEROL 1.25 MG/3 ML NEB RESP TX PRN (18:00)
[2018-11-27] MEDS: GABAPENTIN 300 MG CAPSULE PO SCH (22:25)
[2018-11-27] MEDS: MONTELUKAST 10 MG TABLET PO SCH (22:25)
[2018-11-27] MEDS: ALVIMOPAN 12 MG CAPSULE PO SCH (22:25)
[2018-11-27] MEDS: ALBUTEROL/IPRATROPIUM 3 ML NEB RESP TX PRN (23:15)
[2018-11-28] MEDS: HYDROmorphone 2 MG/1 ML VIAL IV PRN (01:38)
[2018-11-28] MEDS: SODIUM CHLORIDE 0.9% 1,000 ML IV SCH (01:43)
[2018-11-28] MEDS ORDERED: NALOXONE 0.4 MG/ML VIAL IV ONE (04:50)
[2018-11-28] MEDS ORDERED: NALOXONE 0.4 MG/ML VIAL ONE (04:54)
[2018-11-28 05:13] LABS: Basophils % 0.2 % (0.0-0.8); Hematocrit 39.4 VOL% (35.7-47.0); Hemoglobin 11.8 GM/DL (12.0-16.0); Immature Granulocytes % 0.7 %; Immature Granulocytes Absolute 0.13 #; Lymphocytes # 1.6 10*3/uL (1.4-4.0); Lymphocytes % 8.4 % (21.3-54.2); Mean Corpuscular HGB Conc 29.9 GM/DL (32-36); Mean Corpuscular Hemoglobin 27 PG (27-34); Mean Corpuscular Volume 91.4 FL (87-102); Mean Platelet Volume 10.4 FL (9.6-12.0); Monocytes # 2.2 10*3/uL (0.11-0.8); Monocytes % 11.6 % (1.7-12.7); Neutrophils # 14.8 10*3/uL (1.4-7.4); Neutrophils % 79.1 % (38.7-73.9); Platelet Count 177 T/CUMM (130-400); Red Blood Count 4.31 MC/CUMM (3.8-5.5); Red Cell Distribution Width 16.5 % (9.3-17.3); White Blood Count 18.7 T/CUMM (4-12)
[2018-11-28 05:22] LABS: INR 0.9; Partial Thromboplastin Time 24.3 SECS (0-40)
[2018-11-28] MEDS ORDERED: SODIUM CHLORIDE 0.9% 1,000 ML IV SCH (05:30)
[2018-11-28 05:36] LABS: Osmolality,Calculated 294.3 MOS/KG (273-304)
[2018-11-28 06:00] LABS: Albumin 2.6 G/DL (3.4-5.0); Bilirubin,Total 0.5 MG/DL (0.2-1.0); Calcium 8.1 MG/DL (8.5-10.1); Osmolality,Calculated 291.4 MOS/KG (273-304); Total Protein 6.4 G/DL (6.4-8.3)
[2018-11-28] MEDS ORDERED: oxyCODONE/ACETAMINOPHEN 5-325 MG TABLET PO PRN (08:53)
[2018-11-28] MEDS: VERAPAMIL SR 180 MG TABLET PO SCH (09:07)
[2018-11-28] MEDS: ALVIMOPAN 12 MG CAPSULE PO SCH ×2 (09:07→21:55)
[2018-11-28] MEDS: GABAPENTIN 300 MG CAPSULE PO SCH ×2 (09:08→21:56)
[2018-11-28] MEDS: oxyCODONE/ACETAMINOPHEN 5-325 MG TABLET PO PRN ×2 (09:08→19:52)
[2018-11-28] MEDS: ALLOPURINOL 300 MG TABLET PO SCH (09:08)
[2018-11-28] MEDS: predniSONE 10 MG TABLET PO SCH (09:08)
[2018-11-28] MEDS: THEOPHYLLINE ER (24 HR) 300 MG CAPSULE PO SCH (09:08)
[2018-11-28] MEDS: INSULIN LISPRO 100 UNIT/ML SUBCUT SCH ×4 (09:09→21:56)
[2018-11-28] MEDS: LACTATED RINGERS 1,000 ML IV SCH (09:16)
[2018-11-28 16:47] LABS: Apearance,Urine CLOUDY (Clear); Bacteria,Urine Occasional /HPF (Few); Bilirubin,Urine Negative (Negative); Blood, Urine Moderate mg/dL (Negative); Glucose,Urine (UA) >=500 mg/dL (Negative); Ketones,Urine Negative (Negative); Mucus,Urine Occasional /LPF (Occasional); Nitrite,Urine Negative (Negative); Protein,Urine 30 MG/DL; RBC,Urine 65 /HPF (0-4); Squamous Epithelial Cell,Urine Many /HPF (0-10); Urine Color Yellow (Yellow); Urine Specific Gravity 1.021 (1.001-1.035); Urine Urobilinogen < 2.0 EU/DL (0.2-1.0); WBC,Urine 37 /HPF (0-6)
[2018-11-28] MEDS: MONTELUKAST 10 MG TABLET PO SCH (21:55)
[2018-11-29] MEDS: ALBUTEROL/IPRATROPIUM 3 ML NEB RESP TX PRN ×2 (04:24→15:22)
[2018-11-29] MEDS: oxyCODONE/ACETAMINOPHEN 5-325 MG TABLET PO PRN ×2 (04:58→14:53)
[2018-11-29 08:47] LABS: Osmolality,Calculated 283.1 MOS/KG (273-304); Potassium 3.5 MMOL/L (3.5-5.1)
[2018-11-29] MEDS: VERAPAMIL SR 180 MG TABLET PO SCH (09:12)
[2018-11-29] MEDS: predniSONE 10 MG TABLET PO SCH (09:12)
[2018-11-29] MEDS: GABAPENTIN 300 MG CAPSULE PO SCH ×2 (09:12→21:00)
[2018-11-29] MEDS: INSULIN LISPRO 100 UNIT/ML SUBCUT SCH ×4 (09:12→21:07)
[2018-11-29] MEDS: THEOPHYLLINE ER (24 HR) 300 MG CAPSULE PO SCH (09:12)
[2018-11-29] MEDS: ALLOPURINOL 300 MG TABLET PO SCH (09:12)
[2018-11-29] MEDS: ALVIMOPAN 12 MG CAPSULE PO SCH ×2 (09:12→21:00)
[2018-11-29] MEDS: cefTRIAXone 1,000 MG in SYRINGE 1 EACH IV SCH (14:23)
[2018-11-29] MEDS: MONTELUKAST 10 MG TABLET PO SCH (21:00)
[2018-11-30 05:55] LABS: Basophils % 0.2 % (0.0-0.8); Eosinophils % 0.2 % (0.00-10.9); Hematocrit 29.1 VOL% (35.7-47.0); Immature Granulocytes % 0.9 %; Lymphocytes # 1.2 10*3/uL (1.4-4.0); Lymphocytes % 9.9 % (21.3-54.2); Mean Corpuscular HGB Conc 30.9 GM/DL (32-36); Mean Corpuscular Hemoglobin 28 PG (27-34); Mean Platelet Volume 10.1 FL (9.6-12.0); Monocytes # 1.3 10*3/uL (0.11-0.8); Monocytes % 10.9 % (1.7-12.7); Neutrophils # 9.1 10*3/uL (1.4-7.4); Neutrophils % 77.9 % (38.7-73.9); Red Cell Distribution Width 15.4 % (9.3-17.3)
[2018-11-30 06:10] LABS: Platelet Count 123 T/CUMM (130-400); Red Blood Count 3.27 MC/CUMM (3.8-5.5); White Blood Count 11.7 T/CUMM (4-12)
[2018-11-30 06:11] LABS: Calcium 8.2 MG/DL (8.5-10.1); Potassium 3.3 MMOL/L (3.5-5.1)
[2018-11-30] MEDS: oxyCODONE/ACETAMINOPHEN 5-325 MG TABLET PO PRN ×2 (06:54→14:52)
[2018-11-30] MEDS: predniSONE 10 MG TABLET PO SCH (08:53)
[2018-11-30] MEDS: ALLOPURINOL 300 MG TABLET PO SCH (08:53)
[2018-11-30] MEDS: GABAPENTIN 300 MG CAPSULE PO SCH ×2 (08:53→21:09)
[2018-11-30] MEDS: THEOPHYLLINE ER (24 HR) 300 MG CAPSULE PO SCH (08:53)
[2018-11-30] MEDS: ALVIMOPAN 12 MG CAPSULE PO SCH ×2 (08:55→21:09)
[2018-11-30] MEDS: VERAPAMIL SR 180 MG TABLET PO SCH (08:55)
[2018-11-30] MEDS ORDERED: POTASSIUM CHLORIDE 20 MEQ TABLET PO ONE (09:39)
[2018-11-30] MEDS: ALBUTEROL/IPRATROPIUM 3 ML NEB RESP TX PRN ×3 (09:42→19:30)
[2018-11-30] MEDS: INSULIN LISPRO 100 UNIT/ML SUBCUT SCH ×4 (09:46→21:09)
[2018-11-30 12:06] LABS: Hematocrit 30.2 VOL% (35.7-47.0); Hemoglobin 9.4 GM/DL (12.0-16.0)
[2018-11-30] MEDS: cefTRIAXone 1,000 MG in SYRINGE 1 EACH IV SCH (12:30)
[2018-11-30] MEDS: FLUCONAZOLE 100 MG TABLET PO SCH (13:46)
[2018-11-30] MEDS: MAGNESIUM HYDROXIDE SUSP 30 ML UDCUP PO PRN ×2 (13:47→21:08)
[2018-11-30] MEDS: MONTELUKAST 10 MG TABLET PO SCH (21:09)
[2018-11-30] MEDS: AMOXICILLIN/CLAV 875 MG TABLET PO SCH (21:12)
[2018-12-01 06:05] LABS: Calcium 8.5 MG/DL (8.5-10.1); Osmolality,Calculated 278.8 MOS/KG (273-304); Potassium 4.4 MMOL/L (3.5-5.1)
[2018-12-01] MEDS: ALBUTEROL/IPRATROPIUM 3 ML NEB RESP TX PRN ×3 (07:10→15:58)
[2018-12-01] MEDS: INSULIN LISPRO 100 UNIT/ML SUBCUT SCH ×4 (07:45→21:47)
[2018-12-01] MEDS: AMOXICILLIN/CLAV 875 MG TABLET PO SCH ×2 (08:17→21:48)
[2018-12-01] MEDS: VERAPAMIL SR 180 MG TABLET PO SCH (08:17)
[2018-12-01] MEDS: MAGNESIUM HYDROXIDE SUSP 30 ML UDCUP PO PRN (08:17)
[2018-12-01] MEDS: GABAPENTIN 300 MG CAPSULE PO SCH ×2 (08:18→21:48)
[2018-12-01] MEDS: ALVIMOPAN 12 MG CAPSULE PO SCH ×2 (08:18→21:48)
[2018-12-01] MEDS: FLUCONAZOLE 100 MG TABLET PO SCH (08:18)
[2018-12-01] MEDS: THEOPHYLLINE ER (24 HR) 300 MG CAPSULE PO SCH (08:18)
[2018-12-01] MEDS: ALLOPURINOL 300 MG TABLET PO SCH (08:18)
[2018-12-01] MEDS: predniSONE 10 MG TABLET PO SCH (08:18)
[2018-12-01] MEDS ORDERED: BISACODYL 10 MG SUPP RECTAL PRN (12:43)
[2018-12-01] MEDS ORDERED: ASPIRIN CHEW 81 MG TABLET PO ONE ×2 (18:45)
[2018-12-01] MEDS ORDERED: NITROGLYCERIN SL 0.4 MG TABLET SL ONE ×2 (18:46→18:49)
[2018-12-01] MEDS ORDERED: ALUM/MAG/SIMETH/LIDO VISC 1:1 30 ML BOTTLE PO ONE (19:00)
[2018-12-01 20:31] LABS: Basophils % 0.2 % (0.0-0.8); Eosinophils % 0.2 % (0.00-10.9); Hematocrit 30.8 VOL% (35.7-47.0); Hemoglobin 9.5 GM/DL (12.0-16.0); Immature Granulocytes % 1.4 %; Immature Granulocytes Absolute 0.18 #; Lymphocytes % 7.9 % (21.3-54.2); Mean Corpuscular HGB Conc 30.8 GM/DL (32-36); Mean Corpuscular Hemoglobin 28 PG (27-34); Mean Corpuscular Volume 90.9 FL (87-102); Mean Platelet Volume 10.4 FL (9.6-12.0); Monocytes # 1.1 10*3/uL (0.11-0.8); Monocytes % 8.5 % (1.7-12.7); NRBC # 0.02 10*3/uL; Neutrophils # 10.6 10*3/uL (1.4-7.4); Neutrophils % 81.8 % (38.7-73.9); Platelet Count 186 T/CUMM (130-400); Red Blood Count 3.39 MC/CUMM (3.8-5.5); Red Cell Distribution Width 15.8 % (9.3-17.3)
[2018-12-01] MEDS: methylPREDNISolone SOD SUC 40 MG/1 ML VIAL IV SCH (21:47)
[2018-12-01] MEDS: MONTELUKAST 10 MG TABLET PO SCH (21:48)
[2018-12-01] MEDS: PIPERACILLIN/TAZOBACTAM 3,375 MG in SODIUM CHLORIDE 0.9% 100 ML IV SCH (21:54)
[2018-12-01 23:02] LABS: ABG Base Excess 5.9 MMOL/L (-2.5-2.5); ABG HCO3 29.7 MMOL/L (20-26); ABG Oxygen Saturation 92.9 % (95-100); ABG PCO2 59.8 MM HG (35-48); ABG PH 7.352 (7.35-7.45); ABG PO2 68.6 MM HG (80-95); ABG TCO2 30.2 MMOL/L (23-27); Allen Test Positive
[2018-12-01] MEDS: ALBUTEROL/IPRATROPIUM 3 ML NEB RESP TX SCH (23:34)
[2018-12-01] MEDS ORDERED: LORazepam 2 MG/1 ML VIAL IV ONE (23:35)
[2018-12-02] MEDS ORDERED: LORazepam 2 MG/1 ML VIAL IV PRN (00:34)
[2018-12-02 01:20] LABS: Calcium 8.1 MG/DL (8.5-10.1); Potassium 4.9 MMOL/L (3.5-5.1)
[2018-12-02 03:30] LABS: ABG Base Excess 3.8 MMOL/L (-2.5-2.5); ABG HCO3 27.9 MMOL/L (20-26); ABG Oxygen Saturation 98.2 % (95-100); ABG PCO2 63.8 MM HG (35-48); ABG PH 7.309 (7.35-7.45); ABG TCO2 28.9 MMOL/L (23-27); Allen Test Positive; Pt O2 Delivery Device Other
[2018-12-02] MEDS: ALBUTEROL/IPRATROPIUM 3 ML NEB RESP TX SCH ×6 (03:38→23:14)
[2018-12-02] MEDS: PIPERACILLIN/TAZOBACTAM 3,375 MG in SODIUM CHLORIDE 0.9% 100 ML IV SCH ×3 (05:39→21:38)
[2018-12-02 08:13] LABS: Apearance,Urine CLEAR (Clear); Bilirubin,Urine Negative (Negative); Blood, Urine Small mg/dL (Negative); Glucose,Urine (UA) 150 mg/dL (Negative); Ketones,Urine 20 mg/dL (Negative); Mucus,Urine Occasional /LPF (Occasional); Nitrite,Urine Negative (Negative); Protein,Urine 30 MG/DL; RBC,Urine 13 /HPF (0-4); Squamous Epithelial Cell,Urine Occasional /HPF (0-10); Urine Color Yellow (Yellow); Urine Specific Gravity 1.045 (1.001-1.035); WBC,Urine 4 /HPF (0-6)
[2018-12-02] MEDS: FLUCONAZOLE 100 MG TABLET PO SCH (08:49)
[2018-12-02] MEDS: predniSONE 10 MG TABLET PO SCH (08:49)
[2018-12-02] MEDS: THEOPHYLLINE ER (24 HR) 300 MG CAPSULE PO SCH (08:49)
[2018-12-02] MEDS: AMOXICILLIN/CLAV 875 MG TABLET PO SCH ×2 (08:49→21:38)
[2018-12-02] MEDS: ALLOPURINOL 300 MG TABLET PO SCH (08:49)
[2018-12-02] MEDS: GABAPENTIN 300 MG CAPSULE PO SCH ×2 (08:49→21:38)
[2018-12-02] MEDS: INSULIN LISPRO 100 UNIT/ML SUBCUT SCH ×4 (08:49→21:38)
[2018-12-02] MEDS: ALVIMOPAN 12 MG CAPSULE PO SCH ×2 (08:49→21:38)
[2018-12-02] MEDS: methylPREDNISolone SOD SUC 40 MG/1 ML VIAL IV SCH ×3 (08:50→17:13)
[2018-12-02] MEDS: VERAPAMIL SR 180 MG TABLET PO SCH (11:05)
[2018-12-02] MEDS: MONTELUKAST 10 MG TABLET PO SCH (21:38)
[2018-12-03] MEDS: ALBUTEROL/IPRATROPIUM 3 ML NEB RESP TX SCH ×6 (02:39→23:23)
[2018-12-03] MEDS: methylPREDNISolone SOD SUC 40 MG/1 ML VIAL IV SCH ×3 (03:20→17:02)
[2018-12-03 05:15] LABS: Calcium 8.4 MG/DL (8.5-10.1)
[2018-12-03] MEDS: PIPERACILLIN/TAZOBACTAM 3,375 MG in SODIUM CHLORIDE 0.9% 100 ML IV SCH ×2 (05:19→12:31)
[2018-12-03] MEDS: INSULIN LISPRO 100 UNIT/ML SUBCUT SCH ×4 (08:29→21:16)
[2018-12-03] MEDS: THEOPHYLLINE ER (24 HR) 300 MG CAPSULE PO SCH (08:30)
[2018-12-03] MEDS: GABAPENTIN 300 MG CAPSULE PO SCH ×2 (08:30→21:16)
[2018-12-03] MEDS: predniSONE 10 MG TABLET PO SCH (08:30)
[2018-12-03] MEDS: FLUCONAZOLE 100 MG TABLET PO SCH (08:30)
[2018-12-03] MEDS: ALLOPURINOL 300 MG TABLET PO SCH (08:30)
[2018-12-03] MEDS: VERAPAMIL SR 180 MG TABLET PO SCH (08:30)
[2018-12-03] MEDS: AMOXICILLIN/CLAV 875 MG TABLET PO SCH ×2 (08:30→21:15)
[2018-12-03] MEDS: ALVIMOPAN 12 MG CAPSULE PO SCH ×2 (08:30→21:16)
[2018-12-03] MEDS: oxyCODONE/ACETAMINOPHEN 5-325 MG TABLET PO PRN ×2 (21:14→23:35)
[2018-12-03] MEDS: MONTELUKAST 10 MG TABLET PO SCH (21:15)
[2018-12-03] MEDS: INSULIN GLARGINE 100 UNIT/ML SUBCUT SCH (21:16)
[2018-12-04] MEDS: methylPREDNISolone SOD SUC 40 MG/1 ML VIAL IV SCH ×2 (01:58→09:47)
[2018-12-04] MEDS: ALBUTEROL/IPRATROPIUM 3 ML NEB RESP TX SCH ×6 (04:01→23:32)
[2018-12-04 05:04] LABS: Calcium 8.6 MG/DL (8.5-10.1); Osmolality,Calculated 285.1 MOS/KG (273-304)
[2018-12-04] MEDS: oxyCODONE/ACETAMINOPHEN 5-325 MG TABLET PO PRN ×3 (07:36→17:27)
[2018-12-04] MEDS: INSULIN LISPRO 100 UNIT/ML SUBCUT SCH ×4 (09:40→21:08)
[2018-12-04] MEDS: VERAPAMIL SR 180 MG TABLET PO SCH (09:43)
[2018-12-04] MEDS: THEOPHYLLINE ER (24 HR) 300 MG CAPSULE PO SCH (09:43)
[2018-12-04] MEDS: ALLOPURINOL 300 MG TABLET PO SCH (09:43)
[2018-12-04] MEDS: hydroCHLOROthiazide 25 MG TABLET PO SCH (09:43)
[2018-12-04] MEDS: FLUCONAZOLE 100 MG TABLET PO SCH (09:44)
[2018-12-04] MEDS: predniSONE 10 MG TABLET PO SCH (09:44)
[2018-12-04] MEDS: GABAPENTIN 300 MG CAPSULE PO SCH ×2 (09:44→21:07)
[2018-12-04] MEDS: ALVIMOPAN 12 MG CAPSULE PO SCH ×2 (09:45→21:27)
[2018-12-04] MEDS: GLIMEPIRIDE 4 MG TABLET PO SCH ×2 (12:31→21:07)
[2018-12-04] MEDS: NON-FORMULARY MEDICATION (Fluticasone/Vilanterol [Breo Ellipta 200-25 Mcg Inh] 1 PUFF) INH SCH (14:11)
[2018-12-04] MEDS: MONTELUKAST 10 MG TABLET PO SCH (21:07)
[2018-12-04] MEDS: INSULIN GLARGINE 100 UNIT/ML SUBCUT SCH (21:10)
[2018-12-05] MEDS: ALBUTEROL/IPRATROPIUM 3 ML NEB RESP TX SCH ×5 (03:50→19:20)
[2018-12-05 04:20] LABS: Calcium 8.7 MG/DL (8.5-10.1); Osmolality,Calculated 282.8 MOS/KG (273-304); Potassium 3.7 MMOL/L (3.5-5.1)
[2018-12-05] MEDS: oxyCODONE/ACETAMINOPHEN 5-325 MG TABLET PO PRN ×3 (07:20→21:11)
[2018-12-05] MEDS: INSULIN LISPRO 100 UNIT/ML SUBCUT SCH ×4 (09:06→21:04)
[2018-12-05] MEDS: GLIMEPIRIDE 4 MG TABLET PO SCH ×2 (09:07→21:03)
[2018-12-05] MEDS: hydroCHLOROthiazide 25 MG TABLET PO SCH (09:07)
[2018-12-05] MEDS: FLUCONAZOLE 100 MG TABLET PO SCH (09:07)
[2018-12-05] MEDS: ALVIMOPAN 12 MG CAPSULE PO SCH ×2 (09:07→21:03)
[2018-12-05] MEDS: GABAPENTIN 300 MG CAPSULE PO SCH ×2 (09:08→21:03)
[2018-12-05] MEDS: VERAPAMIL SR 180 MG TABLET PO SCH (09:08)
[2018-12-05] MEDS: ALLOPURINOL 300 MG TABLET PO SCH (09:08)
[2018-12-05] MEDS: THEOPHYLLINE ER (24 HR) 300 MG CAPSULE PO SCH (09:08)
[2018-12-05] MEDS: predniSONE 20 MG TABLET PO SCH (09:08)
[2018-12-05] MEDS: NON-FORMULARY MEDICATION (Fluticasone/Vilanterol [Breo Ellipta 200-25 Mcg Inh] 1 PUFF) INH SCH (09:08)
[2018-12-05] MEDS: MONTELUKAST 10 MG TABLET PO SCH (21:03)
[2018-12-05] MEDS: INSULIN GLARGINE 100 UNIT/ML SUBCUT SCH (21:05)
[2018-12-06] MEDS: ALBUTEROL/IPRATROPIUM 3 ML NEB RESP TX SCH ×4 (03:20→11:03)
[2018-12-06] MEDS: INSULIN LISPRO 100 UNIT/ML SUBCUT SCH ×2 (08:38→12:45)
[2018-12-06] MEDS: ALVIMOPAN 12 MG CAPSULE PO SCH (09:38)
[2018-12-06] MEDS: hydroCHLOROthiazide 25 MG TABLET PO SCH (09:38)
[2018-12-06] MEDS: ALLOPURINOL 300 MG TABLET PO SCH (09:38)
[2018-12-06] MEDS: GLIMEPIRIDE 4 MG TABLET PO SCH (09:38)
[2018-12-06] MEDS: GABAPENTIN 300 MG CAPSULE PO SCH (09:38)
[2018-12-06] MEDS: VERAPAMIL SR 180 MG TABLET PO SCH (09:38)
[2018-12-06] MEDS: predniSONE 20 MG TABLET PO SCH (09:38)
[2018-12-06] MEDS: NON-FORMULARY MEDICATION (Fluticasone/Vilanterol [Breo Ellipta 200-25 Mcg Inh] 1 PUFF) INH SCH (09:39)
[2018-12-06] MEDS: FLUCONAZOLE 100 MG TABLET PO SCH (09:39)
[2018-12-06] MEDS: THEOPHYLLINE ER (24 HR) 300 MG CAPSULE PO SCH (09:39)
[2018-12-06 12:16] VITALS: BP 118/65
== END 2018-12-06 14:15 | disposition home health service (06) | DRG 656 ==
LOC: N.SDSINP 05:30 → N.5E 11:01 → N.ICU 12-01 19:23 → N.5E 12-03 17:06 → N.TELES 12-03 19:37
PROVIDERS: ADMIT Family Medicine; ATTEND Family Medicine
PROC: PARNEPH (ICD-10-PCS; 2018-11-27 07:08)

== ENCOUNTER 2019-01-09 14:34 | Inpatient (IN) ==
[2019-01-09] MEDS ORDERED: FUROSEMIDE 100 MG/10 ML VIAL IV STA (14:57)
[2019-01-09] MEDS ORDERED: ALBUTEROL 2.5 MG/3 ML NEB RESP TX SCH (15:00)
[2019-01-09 15:16] LABS: Allen Test Positive
[2019-01-09 15:20] LABS: ABG Base Excess 4.9 MMOL/L (-2.5-2.5); ABG HCO3 28.8 MMOL/L (20-26); ABG PCO2 53.3 MM HG (35-48); ABG PH 7.379 (7.35-7.45); ABG PO2 71.7 MM HG (80-95)
[2019-01-09 15:52] LABS: Apearance,Urine Slightly Hazy (Clear); Bacteria,Urine Many /HPF (Few); Basophils % 0.2 % (0.0-0.8); Bilirubin,Urine Negative (Negative); Blood, Urine Small mg/dL (Negative); Glucose,Urine (UA) Negative (Negative); Hematocrit 39.1 VOL% (35.7-47.0); Hemoglobin 11.8 GM/DL (12.0-16.0); Immature Granulocytes Absolute 0.21 #; Ketones,Urine Negative (Negative); Lymphocytes % 4.8 % (21.3-54.2); Mean Corpuscular HGB Conc 30.2 GM/DL (32-36); Mean Corpuscular Hemoglobin 28 PG (27-34); Mean Corpuscular Volume 93.1 FL (87-102); Mean Platelet Volume 10.6 FL (9.6-12.0); Monocytes # 1.4 10*3/uL (0.11-0.8); Nitrite,Urine Negative (Negative); Platelet Count 283 T/CUMM (130-400); Protein,Urine Negative; RBC,Urine 1 /HPF (0-4); Red Cell Distribution Width 16.5 % (9.3-17.3); Squamous Epithelial Cell,Urine Occasional /HPF (0-10); Urine Color Yellow (Yellow); Urine Specific Gravity 1.017 (1.001-1.035); WBC,Urine 30 /HPF (0-6); White Blood Count 20.7 T/CUMM (4-12)
[2019-01-09] MEDS ORDERED: MEROPENEM 1,000 MG in SODIUM CHLORIDE 0.9% 100 ML IV STA (15:57)
[2019-01-09 16:02] LABS: Barbiturates Screen,Urine Negative (Negative); Benzodiazepines Screen,Urine Negative (Negative); Cannabinoid Screen,Urine Negative (Negative); Opiate Screen,Urine Negative (Negative); Phencyclidine Screen,Urine Negative (Negative)
[2019-01-09 16:04] LABS: Band Neutrophils 3 % (0-10); Hypochromasia Slight; Lymphocytes 5 % (20-55); Platelet Estimate Adequate; Polychromasia Slight; Segmented Neutrophils 89 % (50-85); Target Cells Few; Total Cells Counted 100
[2019-01-09] MEDS ORDERED: GLUCAGON 1 MG VIAL IM PRN (16:09)
[2019-01-09] MEDS ORDERED: MORPHINE 4 MG/1 ML VIAL IV PRN (16:09)
[2019-01-09] MEDS ORDERED: DEXTROSE 50% 25 GM/50 ML VIAL IV PRN (16:09)
[2019-01-09] MEDS ORDERED: ONDANSETRON 4 MG/2 ML VIAL IV PRN (16:09)
[2019-01-09 16:28] LABS: Albumin 3.3 G/DL (3.4-5.0); Bilirubin,Total 0.4 MG/DL (0.2-1.0); Calcium 8.6 MG/DL (8.5-10.1); Osmolality,Calculated 290.7 MOS/KG (273-304); Potassium 3.3 MMOL/L (3.5-5.1); Total Protein 7.5 G/DL (6.4-8.3)
[2019-01-09] MEDS: SODIUM CHLORIDE 0.45% 1,000 ML IV SCH (17:41)
[2019-01-09] MEDS ORDERED: POTASSIUM CHLORIDE 20 MEQ TABLET PO ONE (18:59)
[2019-01-09 20:18] LABS: Troponin I 0.068 NG/ML (0.00-0.045)
[2019-01-09] MEDS: VANCOMYCIN INJ 1,500 MG in SODIUM CHLORIDE 0.9% 500 ML IV SCH (21:02)
[2019-01-09] MEDS: methylPREDNISolone SOD SUC 40 MG/1 ML VIAL IV SCH (21:58)
[2019-01-09] MEDS: ENOXAPARIN 40 MG/0.4 ML SYRINGE SUBCUT SCH (21:58)
[2019-01-09] MEDS: VERAPAMIL SR 240 MG TABLET PO SCH (21:59)
[2019-01-09] MEDS: DOCUSATE SODIUM 100 MG CAPSULE PO SCH (21:59)
[2019-01-09] MEDS: METOPROLOL TARTRATE 25 MG TABLET PO SCH (21:59)
[2019-01-09] MEDS: POTASSIUM CHLORIDE 20 MEQ TABLET PO PRN (22:03)
[2019-01-09 22:33] LABS: Troponin I 0.074 NG/ML (0.00-0.045)
[2019-01-10] MEDS: ALBUTEROL 1.25 MG/3 ML NEB RESP TX SCH ×5 (01:15→20:25)
[2019-01-10 01:21] LABS: CKMB % 1.8 %
[2019-01-10 01:22] LABS: Troponin I 0.074 NG/ML (0.00-0.045)
[2019-01-10] MEDS ORDERED: LORazepam 2 MG/1 ML VIAL IV ONE ×2 (01:36→01:41)
[2019-01-10 02:02] LABS: Allen Test Positive
[2019-01-10 02:03] LABS: ABG Base Excess 5.4 MMOL/L (-2.5-2.5); ABG HCO3 29.3 MMOL/L (20-26); ABG Oxygen Saturation 95.2 % (95-100); ABG PH 7.364 (7.35-7.45); ABG PO2 76.7 MM HG (80-95)
[2019-01-10 02:13] LABS: Calcium 8.3 MG/DL (8.5-10.1); Osmolality,Calculated 291.7 MOS/KG (273-304); Potassium 3.9 MMOL/L (3.5-5.1)
[2019-01-10 02:36] LABS: CKMB % 1.7 %; Troponin I 0.055 NG/ML (0.00-0.045)
[2019-01-10] MEDS: methylPREDNISolone SOD SUC 40 MG/1 ML VIAL IV SCH ×3 (05:03→23:44)
[2019-01-10] MEDS ORDERED: GLUCAGON 1 MG VIAL IM PRN (08:28)
[2019-01-10] MEDS: VERAPAMIL SR 240 MG TABLET PO SCH (08:43)
[2019-01-10] MEDS: PANTOPRAZOLE 40 MG TABLET PO SCH (08:43)
[2019-01-10] MEDS: DOCUSATE SODIUM 100 MG CAPSULE PO SCH ×2 (08:43→22:05)
[2019-01-10] MEDS: METOPROLOL TARTRATE 25 MG TABLET PO SCH ×2 (08:43→22:05)
[2019-01-10] MEDS: INSULIN REGULAR 100 UNIT/ML SUBCUT SCH ×3 (10:38→22:05)
[2019-01-10] MEDS ORDERED: INSULIN NPH 100 UNIT/ML SUBCUT ONE (12:10)
[2019-01-10] MEDS ORDERED: ALBUTEROL 2.5 MG/3 ML NEB RESP TX PRN (13:34)
[2019-01-10] MEDS: ASPIRIN EC 81 MG TABLET PO SCH (14:03)
[2019-01-10] MEDS: VANCOMYCIN INJ 1,500 MG in SODIUM CHLORIDE 0.9% 500 ML IV SCH (14:03)
[2019-01-10] MEDS: FUROSEMIDE 40 MG TABLET PO SCH (15:21)
[2019-01-10] MEDS: INSULIN NPH 100 UNIT/ML SUBCUT SCH (15:56)
[2019-01-10] MEDS ORDERED: INSULIN REGULAR 100 UNIT/ML IV ONE (17:42)
[2019-01-10 19:26] LABS: ABG Oxygen Saturation 90.5 % (95-100); ABG PCO2 58.3 MM HG (35-48); ABG PH 7.313 (7.35-7.45); ABG PO2 64.7 MM HG (80-95); ABG TCO2 26.7 MMOL/L (23-27); Allen Test Positive; Pt O2 Delivery Device Ventilator
[2019-01-10] MEDS ORDERED: LORazepam 2 MG/1 ML VIAL IV PRN (20:45)
[2019-01-10] MEDS: MONTELUKAST 10 MG TABLET PO SCH (22:05)
[2019-01-10] MEDS: GABAPENTIN 300 MG CAPSULE PO SCH (22:05)
[2019-01-10] MEDS: ENOXAPARIN 40 MG/0.4 ML SYRINGE SUBCUT SCH (22:05)
[2019-01-10] MEDS: GLIMEPIRIDE 4 MG TABLET PO SCH (22:05)
[2019-01-10] MEDS: SODIUM CHLORIDE 0.45% 1,000 ML IV SCH ×2 (23:45→23:55)
[2019-01-11] MEDS: ALBUTEROL 1.25 MG/3 ML NEB RESP TX SCH ×7 (00:33→23:00)
[2019-01-11] MEDS: INSULIN REGULAR 100 UNIT/ML SUBCUT SCH ×6 (01:36→20:55)
[2019-01-11 03:27] LABS: Basophils % 0.2 % (0.0-0.8); Hematocrit 33.8 VOL% (35.7-47.0); Hemoglobin 10.2 GM/DL (12.0-16.0); Immature Granulocytes % 0.8 %; Immature Granulocytes Absolute 0.16 #; Lymphocytes # 1.1 10*3/uL (1.4-4.0); Lymphocytes % 5.3 % (21.3-54.2); Mean Corpuscular HGB Conc 30.2 GM/DL (32-36); Mean Corpuscular Hemoglobin 28 PG (27-34); Mean Corpuscular Volume 92.1 FL (87-102); Mean Platelet Volume 10.3 FL (9.6-12.0); Monocytes # 1.3 10*3/uL (0.11-0.8); Monocytes % 6.7 % (1.7-12.7); Neutrophils # 17.1 10*3/uL (1.4-7.4); Platelet Count 238 T/CUMM (130-400); Red Blood Count 3.67 MC/CUMM (3.8-5.5); White Blood Count 19.7 T/CUMM (4-12)
[2019-01-11 03:40] LABS: Calcium 8.6 MG/DL (8.5-10.1); Osmolality,Calculated 295.4 MOS/KG (273-304); Potassium 3.4 MMOL/L (3.5-5.1)
[2019-01-11 04:26] LABS: ABG Base Excess 6.5 MMOL/L (-2.5-2.5); ABG HCO3 30.3 MMOL/L (20-26); ABG Oxygen Saturation 92.8 % (95-100); ABG PCO2 53.6 MM HG (35-48); ABG PH 7.394 (7.35-7.45); ABG PO2 64.8 MM HG (80-95); ABG TCO2 29.7 MMOL/L (23-27); Allen Test Positive; Pt O2 Delivery Device BIPAP
[2019-01-11] MEDS: methylPREDNISolone SOD SUC 40 MG/1 ML VIAL IV SCH ×3 (05:46→20:55)
[2019-01-11] MEDS: VERAPAMIL SR 240 MG TABLET PO SCH (08:11)
[2019-01-11] MEDS: PANTOPRAZOLE 40 MG TABLET PO SCH (08:12)
[2019-01-11] MEDS: FUROSEMIDE 40 MG TABLET PO SCH ×2 (08:12→15:50)
[2019-01-11] MEDS: ALLOPURINOL 300 MG TABLET PO SCH (08:13)
[2019-01-11] MEDS: GLIMEPIRIDE 4 MG TABLET PO SCH ×2 (08:13→20:54)
[2019-01-11] MEDS: METOPROLOL TARTRATE 25 MG TABLET PO SCH ×3 (08:14→21:00)
[2019-01-11] MEDS: GABAPENTIN 300 MG CAPSULE PO SCH ×3 (08:14→21:00)
[2019-01-11] MEDS: hydroCHLOROthiazide 25 MG TABLET PO SCH (08:14)
[2019-01-11] MEDS: DOCUSATE SODIUM 100 MG CAPSULE PO SCH ×3 (08:15→21:00)
[2019-01-11] MEDS: THEOPHYLLINE ER (24 HR) 400 MG CAPSULE PO SCH (08:15)
[2019-01-11] MEDS: ASPIRIN EC 81 MG TABLET PO SCH (08:15)
[2019-01-11] MEDS: INSULIN NPH 100 UNIT/ML SUBCUT SCH ×2 (08:16→17:40)
[2019-01-11] MEDS: VANCOMYCIN INJ 1,500 MG in SODIUM CHLORIDE 0.9% 500 ML IV SCH (08:17)
[2019-01-11] MEDS: MONTELUKAST 10 MG TABLET PO SCH ×2 (20:55→21:00)
[2019-01-11] MEDS: ENOXAPARIN 40 MG/0.4 ML SYRINGE SUBCUT SCH (20:56)
[2019-01-11 21:22] LABS: Allen Test Positive
[2019-01-11 21:23] LABS: ABG Base Excess 5.4 MMOL/L (-2.5-2.5); ABG HCO3 29.1 MMOL/L (20-26); ABG Oxygen Saturation 90.7 % (95-100); ABG PCO2 54.9 MM HG (35-48); ABG PH 7.373 (7.35-7.45); ABG PO2 61.5 MM HG (80-95); ABG TCO2 28.9 MMOL/L (23-27)
[2019-01-12] MEDS: INSULIN REGULAR 100 UNIT/ML SUBCUT SCH ×6 (00:15→20:13)
[2019-01-12 01:20] LABS: Basophils % 0.1 % (0.0-0.8); Hematocrit 33.8 VOL% (35.7-47.0); Hemoglobin 10.5 GM/DL (12.0-16.0); Immature Granulocytes % 0.9 %; Immature Granulocytes Absolute 0.12 #; Lymphocytes # 0.8 10*3/uL (1.4-4.0); Lymphocytes % 5.7 % (21.3-54.2); Mean Corpuscular HGB Conc 31.1 GM/DL (32-36); Mean Corpuscular Hemoglobin 28 PG (27-34); Mean Corpuscular Volume 91.4 FL (87-102); Mean Platelet Volume 10.3 FL (9.6-12.0); Monocytes # 0.7 10*3/uL (0.11-0.8); Monocytes % 5.2 % (1.7-12.7); NRBC # 0.02 10*3/uL; Neutrophils # 12.1 10*3/uL (1.4-7.4); Neutrophils % 88.1 % (38.7-73.9); Platelet Count 222 T/CUMM (130-400); Red Cell Distribution Width 15.6 % (9.3-17.3); White Blood Count 13.7 T/CUMM (4-12)
[2019-01-12 01:38] LABS: Osmolality,Calculated 300.3 MOS/KG (273-304); Potassium 3.4 MMOL/L (3.5-5.1)
[2019-01-12] MEDS: VANCOMYCIN INJ 1,500 MG in SODIUM CHLORIDE 0.9% 500 ML IV SCH (01:48)
[2019-01-12] MEDS: GLIMEPIRIDE 4 MG TABLET PO SCH ×3 (03:15→20:13)
[2019-01-12] MEDS: ALBUTEROL 1.25 MG/3 ML NEB RESP TX SCH ×5 (04:02→20:10)
[2019-01-12] MEDS: METOPROLOL TARTRATE 25 MG TABLET PO SCH ×2 (08:20→20:13)
[2019-01-12] MEDS: GABAPENTIN 300 MG CAPSULE PO SCH ×2 (08:20→20:13)
[2019-01-12] MEDS: PANTOPRAZOLE 40 MG TABLET PO SCH (08:20)
[2019-01-12] MEDS: THEOPHYLLINE ER (24 HR) 400 MG CAPSULE PO SCH (08:20)
[2019-01-12] MEDS: ALLOPURINOL 300 MG TABLET PO SCH (08:21)
[2019-01-12] MEDS: ASPIRIN EC 81 MG TABLET PO SCH (08:21)
[2019-01-12] MEDS: hydroCHLOROthiazide 25 MG TABLET PO SCH (08:25)
[2019-01-12] MEDS: FUROSEMIDE 40 MG TABLET PO SCH ×2 (08:25→15:43)
[2019-01-12] MEDS: DOCUSATE SODIUM 100 MG CAPSULE PO SCH ×2 (08:27→20:13)
[2019-01-12] MEDS: methylPREDNISolone SOD SUC 40 MG/1 ML VIAL IV SCH (08:28)
[2019-01-12] MEDS: INSULIN NPH 100 UNIT/ML SUBCUT SCH ×2 (08:28→15:44)
[2019-01-12] MEDS: LEVOFLOXACIN INJ 250 MG in PREMIX 1 EACH IV SCH (08:31)
[2019-01-12] MEDS: VERAPAMIL SR 240 MG TABLET PO SCH (08:36)
[2019-01-12] MEDS: SODIUM CHLORIDE 0.45% 1,000 ML IV SCH (08:41)
[2019-01-12] MEDS: POTASSIUM CHLORIDE 20 MEQ TABLET PO PRN ×3 (09:10→15:42)
[2019-01-12] MEDS: ENOXAPARIN 30 MG/0.3 ML SYRINGE SUBCUT SCH (12:35)
[2019-01-12] MEDS: MONTELUKAST 10 MG TABLET PO SCH (20:13)
[2019-01-13] MEDS: ALBUTEROL 1.25 MG/3 ML NEB RESP TX SCH ×6 (00:14→19:20)
[2019-01-13] MEDS: INSULIN REGULAR 100 UNIT/ML SUBCUT SCH ×6 (00:37→20:49)
[2019-01-13] MEDS ORDERED: VANCOMYCIN INJ 1,500 MG in SODIUM CHLORIDE 0.9% 500 ML IV SCH (03:30)
[2019-01-13 04:54] LABS: Basophils % 0.1 % (0.0-0.8); Hematocrit 33.9 VOL% (35.7-47.0); Hemoglobin 10.5 GM/DL (12.0-16.0); Immature Granulocytes % 0.9 %; Immature Granulocytes Absolute 0.11 #; Lymphocytes # 1.2 10*3/uL (1.4-4.0); Lymphocytes % 10.2 % (21.3-54.2); Mean Corpuscular Hemoglobin 28 PG (27-34); Mean Platelet Volume 10.7 FL (9.6-12.0); Monocytes # 1.4 10*3/uL (0.11-0.8); Monocytes % 11.6 % (1.7-12.7); NRBC # 0.03 10*3/uL; Neutrophils % 77.2 % (38.7-73.9); Platelet Count 241 T/CUMM (130-400); Red Blood Count 3.81 MC/CUMM (3.8-5.5); Red Cell Distribution Width 15.7 % (9.3-17.3); White Blood Count 11.7 T/CUMM (4-12)
[2019-01-13 05:25] LABS: Osmolality,Calculated 294.4 MOS/KG (273-304); Potassium 3.2 MMOL/L (3.5-5.1)
[2019-01-13] MEDS: INSULIN NPH 100 UNIT/ML SUBCUT SCH ×2 (07:37→17:07)
[2019-01-13] MEDS: GLIMEPIRIDE 4 MG TABLET PO SCH ×2 (08:05→21:26)
[2019-01-13] MEDS: LEVOFLOXACIN INJ 250 MG in PREMIX 1 EACH IV SCH (08:13)
[2019-01-13] MEDS: VERAPAMIL SR 240 MG TABLET PO SCH (08:15)
[2019-01-13] MEDS: ALLOPURINOL 300 MG TABLET PO SCH (08:15)
[2019-01-13] MEDS: POTASSIUM CHLORIDE 20 MEQ TABLET PO PRN ×5 (08:15→21:26)
[2019-01-13] MEDS: hydroCHLOROthiazide 25 MG TABLET PO SCH (08:15)
[2019-01-13] MEDS: GABAPENTIN 300 MG CAPSULE PO SCH ×2 (08:16→21:26)
[2019-01-13] MEDS: PANTOPRAZOLE 40 MG TABLET PO SCH (08:16)
[2019-01-13] MEDS: THEOPHYLLINE ER (24 HR) 400 MG CAPSULE PO SCH (08:16)
[2019-01-13] MEDS: ASPIRIN EC 81 MG TABLET PO SCH (08:16)
[2019-01-13] MEDS: FUROSEMIDE 40 MG TABLET PO SCH ×2 (08:16→17:06)
[2019-01-13] MEDS: DOCUSATE SODIUM 100 MG CAPSULE PO SCH ×2 (08:16→21:26)
[2019-01-13] MEDS: METOPROLOL TARTRATE 25 MG TABLET PO SCH ×2 (08:16→21:26)
[2019-01-13] MEDS: ENOXAPARIN 30 MG/0.3 ML SYRINGE SUBCUT SCH (13:35)
[2019-01-13] MEDS: MONTELUKAST 10 MG TABLET PO SCH (21:26)
[2019-01-14] MEDS: ALBUTEROL 1.25 MG/3 ML NEB RESP TX SCH ×7 (00:06→23:21)
[2019-01-14] MEDS: INSULIN REGULAR 100 UNIT/ML SUBCUT SCH ×6 (00:11→21:54)
[2019-01-14] MEDS: DEXTROSE 50% 25 GM/50 ML SYRINGE IV PRN (04:25)
[2019-01-14 04:29] LABS: Basophils % 0.2 % (0.0-0.8); Eosinophils % 0.3 % (0.00-10.9); Hematocrit 36.1 VOL% (35.7-47.0); Immature Granulocytes % 1.8 %; Lymphocytes # 2.3 10*3/uL (1.4-4.0); Lymphocytes % 20.8 % (21.3-54.2); Mean Corpuscular HGB Conc 30.5 GM/DL (32-36); Mean Corpuscular Hemoglobin 28 PG (27-34); Mean Corpuscular Volume 90.3 FL (87-102); Mean Platelet Volume 10.1 FL (9.6-12.0); Monocytes # 1.3 10*3/uL (0.11-0.8); Monocytes % 12.1 % (1.7-12.7); Neutrophils # 7.1 10*3/uL (1.4-7.4); Neutrophils % 64.8 % (38.7-73.9); Platelet Count 241 T/CUMM (130-400); Red Cell Distribution Width 15.7 % (9.3-17.3)
[2019-01-14 04:58] LABS: Calcium 8.6 MG/DL (8.5-10.1); Osmolality,Calculated 291.3 MOS/KG (273-304); Potassium 3.6 MMOL/L (3.5-5.1)
[2019-01-14] MEDS: INSULIN NPH 100 UNIT/ML SUBCUT SCH (10:34)
[2019-01-14] MEDS: hydroCHLOROthiazide 25 MG TABLET PO SCH (10:35)
[2019-01-14] MEDS: ASPIRIN EC 81 MG TABLET PO SCH (10:35)
[2019-01-14] MEDS: THEOPHYLLINE ER (24 HR) 400 MG CAPSULE PO SCH (10:35)
[2019-01-14] MEDS: GABAPENTIN 300 MG CAPSULE PO SCH ×2 (10:35→21:47)
[2019-01-14] MEDS: PANTOPRAZOLE 40 MG TABLET PO SCH (10:36)
[2019-01-14] MEDS: DOCUSATE SODIUM 100 MG CAPSULE PO SCH ×2 (10:36→21:48)
[2019-01-14] MEDS: FUROSEMIDE 40 MG TABLET PO SCH ×2 (10:36→16:20)
[2019-01-14] MEDS: VERAPAMIL SR 240 MG TABLET PO SCH (10:36)
[2019-01-14] MEDS: METOPROLOL TARTRATE 25 MG TABLET PO SCH ×2 (10:36→21:47)
[2019-01-14] MEDS: LEVOFLOXACIN INJ 250 MG in PREMIX 1 EACH IV SCH (10:37)
[2019-01-14] MEDS: ALLOPURINOL 300 MG TABLET PO SCH (10:37)
[2019-01-14] MEDS: POTASSIUM CHLORIDE 20 MEQ TABLET PO PRN ×2 (10:53→14:34)
[2019-01-14] MEDS: ENOXAPARIN 30 MG/0.3 ML SYRINGE SUBCUT SCH (14:33)
[2019-01-14] MEDS ORDERED: INSULIN NPH 100 UNIT/ML SUBCUT SCH (16:30)
[2019-01-14] MEDS: MONTELUKAST 10 MG TABLET PO SCH (21:47)
[2019-01-15] MEDS: INSULIN REGULAR 100 UNIT/ML SUBCUT SCH ×7 (00:29→23:43)
[2019-01-15] MEDS: ALBUTEROL 1.25 MG/3 ML NEB RESP TX SCH ×6 (02:13→23:13)
[2019-01-15] MEDS: DEXTROSE 50% 25 GM/50 ML SYRINGE IV PRN (03:52)
[2019-01-15] MEDS: INSULIN NPH 100 UNIT/ML SUBCUT SCH (07:36)
[2019-01-15] MEDS: hydroCHLOROthiazide 25 MG TABLET PO SCH (08:41)
[2019-01-15] MEDS: VERAPAMIL SR 240 MG TABLET PO SCH (08:41)
[2019-01-15] MEDS: THEOPHYLLINE ER (24 HR) 400 MG CAPSULE PO SCH (08:42)
[2019-01-15] MEDS: PANTOPRAZOLE 40 MG TABLET PO SCH (08:42)
[2019-01-15] MEDS: ASPIRIN EC 81 MG TABLET PO SCH (08:42)
[2019-01-15] MEDS: METOPROLOL TARTRATE 25 MG TABLET PO SCH ×2 (08:42→20:22)
[2019-01-15] MEDS: GABAPENTIN 300 MG CAPSULE PO SCH ×2 (08:42→20:22)
[2019-01-15] MEDS: ALLOPURINOL 300 MG TABLET PO SCH (08:42)
[2019-01-15] MEDS: FUROSEMIDE 40 MG TABLET PO SCH ×2 (08:42→17:02)
[2019-01-15] MEDS: DOCUSATE SODIUM 100 MG CAPSULE PO SCH ×2 (08:43→20:22)
[2019-01-15] MEDS: LEVOFLOXACIN INJ 250 MG in PREMIX 1 EACH IV SCH (08:46)
[2019-01-15] MEDS: INSULIN GLARGINE 100 UNIT/ML SUBCUT SCH (09:01)
[2019-01-15] MEDS: ENOXAPARIN 30 MG/0.3 ML SYRINGE SUBCUT SCH (13:59)
[2019-01-15] MEDS: MONTELUKAST 10 MG TABLET PO SCH (20:22)
[2019-01-16] MEDS: ALBUTEROL 1.25 MG/3 ML NEB RESP TX SCH ×6 (02:33→23:26)
[2019-01-16 05:15] LABS: Calcium 9.1 MG/DL (8.5-10.1); Osmolality,Calculated 291.5 MOS/KG (273-304); Potassium 2.6 MMOL/L (3.5-5.1)
[2019-01-16] MEDS: POTASSIUM CHLORIDE 20 MEQ TABLET PO PRN ×2 (05:39→12:08)
[2019-01-16] MEDS: INSULIN REGULAR 100 UNIT/ML SUBCUT SCH ×5 (05:40→21:45)
[2019-01-16] MEDS ORDERED: POTASSIUM CHLORIDE 20 MEQ TABLET PO ONE (07:23)
[2019-01-16] MEDS: DOCUSATE SODIUM 100 MG CAPSULE PO SCH ×2 (08:54→21:47)
[2019-01-16] MEDS: THEOPHYLLINE ER (24 HR) 400 MG CAPSULE PO SCH (08:55)
[2019-01-16] MEDS: GABAPENTIN 300 MG CAPSULE PO SCH ×2 (08:55→21:47)
[2019-01-16] MEDS: GLIMEPIRIDE 4 MG TABLET PO SCH ×2 (08:56→21:47)
[2019-01-16] MEDS: ASPIRIN EC 81 MG TABLET PO SCH (08:57)
[2019-01-16] MEDS: PANTOPRAZOLE 40 MG TABLET PO SCH (08:58)
[2019-01-16] MEDS: hydroCHLOROthiazide 25 MG TABLET PO SCH (08:58)
[2019-01-16] MEDS: METOPROLOL TARTRATE 25 MG TABLET PO SCH ×2 (08:58→21:47)
[2019-01-16] MEDS: FUROSEMIDE 40 MG TABLET PO SCH ×2 (08:58→17:19)
[2019-01-16] MEDS: VERAPAMIL SR 240 MG TABLET PO SCH (08:59)
[2019-01-16] MEDS: ALLOPURINOL 300 MG TABLET PO SCH (09:06)
[2019-01-16] MEDS: LEVOFLOXACIN INJ 250 MG in PREMIX 1 EACH IV SCH (09:39)
[2019-01-16] MEDS: INSULIN GLARGINE 100 UNIT/ML SUBCUT SCH (09:39)
[2019-01-16] MEDS: ENOXAPARIN 30 MG/0.3 ML SYRINGE SUBCUT SCH (12:08)
[2019-01-16] MEDS: MONTELUKAST 10 MG TABLET PO SCH (21:47)
[2019-01-17] MEDS: INSULIN REGULAR 100 UNIT/ML SUBCUT SCH ×3 (00:50→08:57)
[2019-01-17] MEDS: ALBUTEROL 1.25 MG/3 ML NEB RESP TX SCH ×2 (03:56→06:55)
[2019-01-17 08:06] LABS: Osmolality,Calculated 287.7 MOS/KG (273-304); Potassium 2.7 MMOL/L (3.5-5.1)
[2019-01-17] MEDS: INSULIN GLARGINE 100 UNIT/ML SUBCUT SCH (08:57)
[2019-01-17] MEDS: LEVOFLOXACIN INJ 250 MG in PREMIX 1 EACH IV SCH (08:58)
[2019-01-17] MEDS: GLIMEPIRIDE 4 MG TABLET PO SCH (08:59)
[2019-01-17] MEDS: THEOPHYLLINE ER (24 HR) 400 MG CAPSULE PO SCH (08:59)
[2019-01-17] MEDS: GABAPENTIN 300 MG CAPSULE PO SCH (08:59)
[2019-01-17] MEDS: ASPIRIN EC 81 MG TABLET PO SCH (08:59)
[2019-01-17] MEDS: PANTOPRAZOLE 40 MG TABLET PO SCH (08:59)
[2019-01-17] MEDS: ALLOPURINOL 300 MG TABLET PO SCH (08:59)
[2019-01-17] MEDS: hydroCHLOROthiazide 25 MG TABLET PO SCH (08:59)
[2019-01-17] MEDS: DOCUSATE SODIUM 100 MG CAPSULE PO SCH (08:59)
[2019-01-17] MEDS: POTASSIUM CHLORIDE 20 MEQ TABLET PO PRN (08:59)
[2019-01-17] MEDS: METOPROLOL TARTRATE 25 MG TABLET PO SCH (09:00)
[2019-01-17] MEDS: FUROSEMIDE 40 MG TABLET PO SCH (09:00)
[2019-01-17] MEDS: VERAPAMIL SR 240 MG TABLET PO SCH (09:02)
[2019-01-17 09:15] VITALS: BP 124/74
[2019-01-17] MEDS ORDERED: POTASSIUM CHLORIDE 20 MEQ TABLET PO ONE (09:18)
[2019-01-17] MEDS ORDERED: INSULIN GLARGINE 100 UNIT/ML SUBCUT SCH (09:27)
[2019-01-17] MEDS ORDERED: LEVOFLOXACIN 250 MG TABLET PO SCH (09:30)
[2019-01-18] MEDS ORDERED: POTASSIUM CHLORIDE 20 MEQ TABLET PO SCH (09:00)
== END 2019-01-17 11:57 | DRG 871 ==
LOC: N.ED 14:34 → N.EDINP 16:09 → N.CC 17:02 → N.4E 01-16 10:44
PROVIDERS: ADMIT Family Medicine; ATTEND Family Medicine

== ENCOUNTER 2019-03-18 11:55 | Inpatient (IN) ==
[2019-03-18] MEDS ORDERED: ASPIRIN 325 MG TABLET PO STA (12:43)
[2019-03-18] MEDS ORDERED: ENOXAPARIN 100 MG/ML SYRINGE SUBCUT STA (12:43)
[2019-03-18 13:24] LABS: Basophils # 0.1 10*3/uL (0.0-0.2); Basophils % 0.8 % (0.0-0.8); Eosinophils % 0.3 % (0.00-10.9); Hematocrit 38.3 VOL% (35.7-47.0); Hemoglobin 11.7 GM/DL (12.0-16.0); Immature Granulocytes % 0.3 %; Immature Granulocytes Absolute 0.03 #; Lymphocytes # 1.4 10*3/uL (1.4-4.0); Lymphocytes % 13.6 % (21.3-54.2); Mean Corpuscular HGB Conc 30.5 GM/DL (32-36); Mean Corpuscular Volume 89.9 FL (87-102); Mean Platelet Volume 11.6 FL (9.6-12.0); Monocytes % 8.8 % (1.7-12.7); Neutrophils % 76.2 % (38.7-73.9); Platelet Count 238 T/CUMM (130-400); Red Blood Count 4.26 MC/CUMM (3.8-5.5); Red Cell Distribution Width 15.9 % (9.3-17.3); White Blood Count 10.2 T/CUMM (4-12)
[2019-03-18 13:40] LABS: Bilirubin,Total 0.6 MG/DL (0.2-1.0); Osmolality,Calculated 289.5 MOS/KG (273-304); Total Protein 6.7 G/DL (6.4-8.3)
[2019-03-18 14:11] LABS: Apearance,Urine CLEAR (Clear); Bilirubin,Urine Negative (Negative); Blood, Urine Negative (Negative); Glucose,Urine (UA) 50 mg/dL (Negative); Ketones,Urine Negative (Negative); Mucus,Urine Occasional /LPF (Occasional); Nitrite,Urine Negative (Negative); Protein,Urine 100 MG/DL; RBC,Urine <1 /HPF (0-4); Squamous Epithelial Cell,Urine Occasional /HPF (0-10); Urine Color Yellow (Yellow); Urine Specific Gravity 1.027 (1.001-1.035); Urine Urobilinogen < 2.0 EU/DL (0.2-1.0); WBC,Urine <1 /HPF (0-6)
[2019-03-18] MEDS ORDERED: ONDANSETRON 4 MG/2 ML VIAL IV PRN (15:50)
[2019-03-18] MEDS ORDERED: FUROSEMIDE 40 MG/4 ML VIAL IV ONE (15:56)
[2019-03-18] MEDS ORDERED: ALBUTEROL 1.25 MG/3 ML NEB RESP TX PRN (15:58)
[2019-03-18] MEDS ORDERED: DEXTROSE 50% 25 GM/50 ML SYRINGE IV PRN (16:15)
[2019-03-18] MEDS ORDERED: GLUCAGON 1 MG VIAL IM PRN (16:15)
[2019-03-18] MEDS: ENOXAPARIN 40 MG/0.4 ML SYRINGE SUBCUT SCH (17:39)
[2019-03-18] MEDS: INSULIN LISPRO 100 UNIT/ML SUBCUT SCH ×2 (17:49→20:56)
[2019-03-18] MEDS: methylPREDNISolone SOD SUC 40 MG/1 ML VIAL IV SCH (17:54)
[2019-03-18] MEDS: ALBUTEROL/IPRATROPIUM 3 ML NEB RESP TX PRN (20:17)
[2019-03-18] MEDS: DOCUSATE SODIUM 100 MG CAPSULE PO SCH (20:56)
[2019-03-19 05:20] LABS: Basophils % 0.3 % (0.0-0.8); Hemoglobin 12.5 GM/DL (12.0-16.0); Immature Granulocytes Absolute 0.09 #; Lymphocytes # 0.8 10*3/uL (1.4-4.0); Lymphocytes % 8.8 % (21.3-54.2); Mean Corpuscular HGB Conc 30.5 GM/DL (32-36); Mean Corpuscular Volume 88.4 FL (87-102); Mean Platelet Volume 10.9 FL (9.6-12.0); Monocytes % 1.1 % (1.7-12.7); Neutrophils % 88.8 % (38.7-73.9); Platelet Count 280 T/CUMM (130-400); Red Blood Count 4.64 MC/CUMM (3.8-5.5); Red Cell Distribution Width 15.7 % (9.3-17.3); White Blood Count 9.2 T/CUMM (4-12)
[2019-03-19] MEDS: methylPREDNISolone SOD SUC 40 MG/1 ML VIAL IV SCH ×2 (05:35→18:10)
[2019-03-19 05:46] LABS: Calcium 9.2 MG/DL (8.5-10.1); Osmolality,Calculated 288.4 MOS/KG (273-304)
[2019-03-19 05:49] LABS: Albumin 3.2 G/DL (3.4-5.0); Bilirubin,Direct 0.13 MG/DL (0.0-0.20); Bilirubin,Indirect 0.7 MG/DL (0.0-1.0); Bilirubin,Total 0.8 MG/DL (0.2-1.0); Total Protein 7.1 G/DL (6.4-8.3)
[2019-03-19] MEDS ORDERED: FUROSEMIDE 40 MG/4 ML VIAL IV ONE (08:05)
[2019-03-19] MEDS ORDERED: FLUTICASONE VILANTEROL INH SCH (09:00)
[2019-03-19] MEDS: GABAPENTIN 300 MG CAPSULE PO SCH ×2 (09:37→21:23)
[2019-03-19] MEDS: ALLOPURINOL 300 MG TABLET PO SCH (09:38)
[2019-03-19] MEDS: VERAPAMIL SR 240 MG TABLET PO SCH (09:38)
[2019-03-19] MEDS: ASPIRIN EC 81 MG TABLET PO SCH (09:38)
[2019-03-19] MEDS: THEOPHYLLINE ER (24 HR) 400 MG CAPSULE PO SCH (09:38)
[2019-03-19] MEDS: PANTOPRAZOLE 40 MG TABLET PO SCH (09:38)
[2019-03-19] MEDS: predniSONE 10 MG TABLET PO SCH (09:39)
[2019-03-19] MEDS: DOCUSATE SODIUM 100 MG CAPSULE PO SCH ×2 (09:39→21:23)
[2019-03-19] MEDS: FUROSEMIDE 40 MG TABLET PO SCH ×2 (09:39→21:23)
[2019-03-19] MEDS: METOPROLOL TARTRATE 25 MG TABLET PO SCH ×2 (09:39→21:23)
[2019-03-19] MEDS: INSULIN LISPRO 100 UNIT/ML SUBCUT SCH ×4 (09:48→21:24)
[2019-03-19] MEDS: INSULIN GLARGINE 100 UNIT/ML SUBCUT SCH (12:46)
[2019-03-19] MEDS: ENOXAPARIN 40 MG/0.4 ML SYRINGE SUBCUT SCH (15:46)
[2019-03-19] MEDS: ALBUTEROL/IPRATROPIUM 3 ML NEB RESP TX PRN ×2 (15:50→22:25)
[2019-03-19] MEDS: MONTELUKAST 10 MG TABLET PO SCH (21:24)
[2019-03-20 04:47] LABS: Basophils % 0.1 % (0.0-0.8); Hematocrit 36.4 VOL% (35.7-47.0); Immature Granulocytes % 0.4 %; Immature Granulocytes Absolute 0.04 #; Lymphocytes % 10.9 % (21.3-54.2); Mean Corpuscular HGB Conc 30.2 GM/DL (32-36); Mean Corpuscular Volume 88.8 FL (87-102); Monocytes % 10.6 % (1.7-12.7); Platelet Count 271 T/CUMM (130-400); Red Cell Distribution Width 15.5 % (9.3-17.3); White Blood Count 9.4 T/CUMM (4-12)
[2019-03-20 05:13] LABS: Calcium 8.4 MG/DL (8.5-10.1)
[2019-03-20] MEDS: methylPREDNISolone SOD SUC 40 MG/1 ML VIAL IV SCH ×2 (05:48→18:07)
[2019-03-20] MEDS: INSULIN LISPRO 100 UNIT/ML SUBCUT SCH ×4 (07:54→20:35)
[2019-03-20] MEDS: ALLOPURINOL 300 MG TABLET PO SCH (09:24)
[2019-03-20] MEDS: FUROSEMIDE 40 MG TABLET PO SCH ×2 (09:24→20:36)
[2019-03-20] MEDS: predniSONE 10 MG TABLET PO SCH (09:25)
[2019-03-20] MEDS: ASPIRIN EC 81 MG TABLET PO SCH (09:25)
[2019-03-20] MEDS: GABAPENTIN 300 MG CAPSULE PO SCH ×2 (09:25→20:36)
[2019-03-20] MEDS: POTASSIUM CHLORIDE 20 MEQ TABLET PO SCH ×2 (09:26→20:36)
[2019-03-20] MEDS: DOCUSATE SODIUM 100 MG CAPSULE PO SCH ×2 (09:26→20:37)
[2019-03-20] MEDS: METOPROLOL TARTRATE 25 MG TABLET PO SCH ×2 (09:26→20:36)
[2019-03-20] MEDS: VERAPAMIL SR 240 MG TABLET PO SCH (09:27)
[2019-03-20] MEDS: PANTOPRAZOLE 40 MG TABLET PO SCH (09:27)
[2019-03-20] MEDS: THEOPHYLLINE ER (24 HR) 400 MG CAPSULE PO SCH (09:27)
[2019-03-20] MEDS: INSULIN GLARGINE 100 UNIT/ML SUBCUT SCH (12:17)
[2019-03-20] MEDS: ENOXAPARIN 40 MG/0.4 ML SYRINGE SUBCUT SCH (16:01)
[2019-03-20] MEDS: MONTELUKAST 10 MG TABLET PO SCH (20:36)
[2019-03-21] MEDS: ALBUTEROL/IPRATROPIUM 3 ML NEB RESP TX PRN (04:25)
[2019-03-21 04:31] LABS: Basophils % 0.1 % (0.0-0.8); Hematocrit 38.1 VOL% (35.7-47.0); Hemoglobin 11.7 GM/DL (12.0-16.0); Immature Granulocytes % 0.5 %; Immature Granulocytes Absolute 0.06 #; Lymphocytes # 0.8 10*3/uL (1.4-4.0); Lymphocytes % 7.1 % (21.3-54.2); Mean Corpuscular HGB Conc 30.7 GM/DL (32-36); Mean Corpuscular Volume 88.2 FL (87-102); Mean Platelet Volume 10.7 FL (9.6-12.0); Monocytes % 5.4 % (1.7-12.7); Neutrophils % 86.9 % (38.7-73.9); Platelet Count 314 T/CUMM (130-400); Red Blood Count 4.32 MC/CUMM (3.8-5.5); Red Cell Distribution Width 15.1 % (9.3-17.3); White Blood Count 11.1 T/CUMM (4-12)
[2019-03-21 04:50] LABS: Osmolality,Calculated 288.5 MOS/KG (273-304)
[2019-03-21 04:53] LABS: Alanine Aminotransferase 139 U/L (13-56); Albumin 2.9 G/DL (3.4-5.0); Alkaline Phosphatase 125 U/L (45-117); Aspartate Amino Transferase 20 U/L (0-37); Bilirubin,Direct < 0.100 MG/DL (0.0-0.20); Bilirubin,Indirect 0.3 MG/DL (0.0-1.0); Bilirubin,Total < 0.39 MG/DL (0.2-1.0); Total Protein 5.9 G/DL (6.4-8.3)
[2019-03-21] MEDS: methylPREDNISolone SOD SUC 40 MG/1 ML VIAL IV SCH (06:03)
[2019-03-21] MEDS: INSULIN LISPRO 100 UNIT/ML SUBCUT SCH ×2 (08:50→12:32)
[2019-03-21] MEDS: predniSONE 10 MG TABLET PO SCH (08:51)
[2019-03-21] MEDS: GABAPENTIN 300 MG CAPSULE PO SCH (08:51)
[2019-03-21] MEDS: FUROSEMIDE 40 MG TABLET PO SCH (08:51)
[2019-03-21] MEDS: PANTOPRAZOLE 40 MG TABLET PO SCH (08:51)
[2019-03-21] MEDS: POTASSIUM CHLORIDE 20 MEQ TABLET PO SCH (08:51)
[2019-03-21] MEDS: METOPROLOL TARTRATE 25 MG TABLET PO SCH (08:51)
[2019-03-21] MEDS: THEOPHYLLINE ER (24 HR) 400 MG CAPSULE PO SCH (08:51)
[2019-03-21] MEDS: ASPIRIN EC 81 MG TABLET PO SCH (08:51)
[2019-03-21] MEDS: VERAPAMIL SR 240 MG TABLET PO SCH (08:51)
[2019-03-21] MEDS: ALLOPURINOL 300 MG TABLET PO SCH (08:51)
[2019-03-21] MEDS: DOCUSATE SODIUM 100 MG CAPSULE PO SCH (08:52)
[2019-03-21 12:23] VITALS: BP 135/71
[2019-03-21] MEDS: INSULIN GLARGINE 100 UNIT/ML SUBCUT SCH (12:32)
== END 2019-03-21 14:15 | disposition home health service (06) | DRG 203 ==
LOC: N.EDINP 11:55 → N.ED 11:55 → N.TELEN 15:31
PROVIDERS: ADMIT Family Medicine; ATTEND Family Medicine

== ENCOUNTER 2019-06-26 06:21 | Inpatient (IN) ==
[2019-06-26] MEDS ORDERED: ACETAMINOPHEN 500 MG TABLET PO STA (06:38)
[2019-06-26] MEDS ORDERED: SODIUM CHLORIDE 0.9% 500 ML IV STA (06:38)
[2019-06-26] MEDS ORDERED: PIPERACILLIN/TAZOBACTAM 3,375 MG in SODIUM CHLORIDE 0.9% 100 ML IV STA (06:41)
[2019-06-26 06:50] LABS: Basophils % 0.5 % (0.0-0.8); Eosinophils # 0.2 10*3/uL (0.0-0.87); Hemoglobin 9.4 GM/DL (12.0-16.0); Immature Granulocytes % 0.8 %; Immature Granulocytes Absolute 0.06 #; Lymphocytes # 1.5 10*3/uL (1.4-4.0); Lymphocytes % 19.1 % (21.3-54.2); Mean Corpuscular HGB Conc 29.4 GM/DL (32-36); Mean Platelet Volume 9.4 FL (9.6-12.0); Monocytes % 13.9 % (1.7-12.7); Neutrophils % 63.7 % (38.7-73.9); Platelet Count 321 T/CUMM (130-400); Red Blood Count 3.44 MC/CUMM (3.8-5.5); Red Cell Distribution Width 16.6 % (9.3-17.3); White Blood Count 7.6 T/CUMM (4-12)
[2019-06-26] MEDS ORDERED: PIPERACILLIN/TAZOBACTAM 3,375 MG VIAL IV ONE (07:05)
[2019-06-26 07:07] LABS: Apearance,Urine CLEAR (Clear); Bilirubin,Urine Negative (Negative); Blood, Urine Negative (Negative); Glucose,Urine (UA) Negative (Negative); Hyaline Casts,Urine 1 /LPF (0-3); Ketones,Urine Negative (Negative); Mucus,Urine Occasional /LPF (Occasional); Nitrite,Urine Negative (Negative); Protein,Urine Negative; RBC,Urine <1 /HPF (0-4); Squamous Epithelial Cell,Urine Occasional /HPF (0-10); Urine Color Yellow (Yellow); Urine Specific Gravity 1.011 (1.001-1.035); Urine Urobilinogen < 2.0 EU/DL (0.2-1.0); WBC,Urine <1 /HPF (0-6)
[2019-06-26 07:13] LABS: Albumin 2.9 G/DL (3.4-5.0); Bilirubin,Total 0.6 MG/DL (0.2-1.0); Calcium 8.7 MG/DL (8.5-10.1); Osmolality,Calculated 283.5 MOS/KG (273-304)
[2019-06-26] MEDS ORDERED: ONDANSETRON 4 MG/2 ML VIAL IV PRN (08:37)
[2019-06-26] MEDS: PANTOPRAZOLE 40 MG TABLET PO SCH (09:49)
[2019-06-26] MEDS: DOCUSATE SODIUM 100 MG CAPSULE PO SCH ×2 (09:49→21:15)
[2019-06-26] MEDS ORDERED: METHOCARBAMOL 500 MG TABLET PO PRN (13:08)
[2019-06-26] MEDS ORDERED: ALBUTEROL 2.5 MG/3 ML NEB RESP TX PRN ×2 (13:08)
[2019-06-26] MEDS: SODIUM CHLORIDE 0.9% 1,000 ML IV SCH (15:57)
[2019-06-26 16:21] LABS: Basophils # 0.1 10*3/uL (0.0-0.2); Basophils % 0.6 % (0.0-0.8); Eosinophils # 0.1 10*3/uL (0.0-0.87); Eosinophils % 1.5 % (0.00-10.9); Hematocrit 31.6 VOL% (35.7-47.0); Hemoglobin 9.2 GM/DL (12.0-16.0); Immature Granulocytes % 0.8 %; Immature Granulocytes Absolute 0.07 #; Lymphocytes # 1.7 10*3/uL (1.4-4.0); Lymphocytes % 20.6 % (21.3-54.2); Mean Corpuscular HGB Conc 29.1 GM/DL (32-36); Mean Corpuscular Volume 94.3 FL (87-102); Mean Platelet Volume 9.8 FL (9.6-12.0); Monocytes % 14.2 % (1.7-12.7); Neutrophils % 62.3 % (38.7-73.9); Platelet Count 335 T/CUMM (130-400); Red Blood Count 3.35 MC/CUMM (3.8-5.5); Red Cell Distribution Width 16.5 % (9.3-17.3); White Blood Count 8.5 T/CUMM (4-12)
[2019-06-26 16:32] LABS: INR 0.9; PT Patient Result 9.6 SECS (9.6-12.2); Partial Thromboplastin Time 25.4 SECS (20.8-36.0)
[2019-06-26 16:56] LABS: Albumin 2.9 G/DL (3.4-5.0); Bilirubin,Total 0.4 MG/DL (0.2-1.0); Calcium 8.7 MG/DL (8.5-10.1); Osmolality,Calculated 288.1 MOS/KG (273-304); Total Protein 6.7 G/DL (6.4-8.3)
[2019-06-26] MEDS: GABAPENTIN 300 MG CAPSULE PO SCH (21:15)
[2019-06-26] MEDS: METOPROLOL TARTRATE 25 MG TABLET PO SCH (21:15)
[2019-06-26] MEDS: cloNIDine 0.1 MG TABLET PO SCH (21:15)
[2019-06-26] MEDS: MONTELUKAST 10 MG TABLET PO SCH (21:15)
[2019-06-27] MEDS: ACETAMINOPHEN 325 MG TABLET PO PRN (07:09)
[2019-06-27] MEDS ORDERED: ALBUTEROL 0.63 MG/3 ML NEB RESP TX PRN (07:11)
[2019-06-27 07:21] LABS: Basophils # 0.1 10*3/uL (0.0-0.2); Basophils % 0.5 % (0.0-0.8); Eosinophils % 0.4 % (0.00-10.9); Hematocrit 30.2 VOL% (35.7-47.0); Hemoglobin 8.8 GM/DL (12.0-16.0); Immature Granulocytes % 0.7 %; Immature Granulocytes Absolute 0.07 #; Lymphocytes # 1.7 10*3/uL (1.4-4.0); Lymphocytes % 17.6 % (21.3-54.2); Mean Corpuscular HGB Conc 29.1 GM/DL (32-36); Mean Corpuscular Volume 93.5 FL (87-102); Mean Platelet Volume 8.9 FL (9.6-12.0); Monocytes % 13.6 % (1.7-12.7); Neutrophils % 67.2 % (38.7-73.9); Platelet Count 284 T/CUMM (130-400); Red Blood Count 3.23 MC/CUMM (3.8-5.5); Red Cell Distribution Width 16.5 % (9.3-17.3); White Blood Count 9.5 T/CUMM (4-12)
[2019-06-27 07:42] LABS: Calcium 8.6 MG/DL (8.5-10.1); Osmolality,Calculated 289.3 MOS/KG (273-304)
[2019-06-27] MEDS ORDERED: predniSONE 10 MG TABLET PO SCH (09:00)
[2019-06-27] MEDS ORDERED: THEOPHYLLINE ER (24 HR) 400 MG CAPSULE PO SCH (09:00)
[2019-06-27] MEDS: CIPROFLOXACIN INJ 400 MG in PREMIX 1 EACH IV SCH ×2 (09:34→22:34)
[2019-06-27] MEDS: metroNIDAZOLE INJ 500 MG in PREMIX 1 EACH IV SCH ×3 (11:35→21:26)
[2019-06-27] MEDS: OLMESARTAN 5 MG TABLET PO SCH (11:36)
[2019-06-27] MEDS: GABAPENTIN 300 MG CAPSULE PO SCH ×2 (11:36→20:27)
[2019-06-27] MEDS: PANTOPRAZOLE 40 MG TABLET PO SCH (11:36)
[2019-06-27] MEDS: ASPIRIN EC 81 MG TABLET PO SCH (11:36)
[2019-06-27] MEDS: ALLOPURINOL 300 MG TABLET PO SCH (11:36)
[2019-06-27] MEDS: VERAPAMIL SR 240 MG TABLET PO SCH (11:37)
[2019-06-27] MEDS: INSULIN GLARGINE 100 UNIT/ML SUBCUT SCH (11:38)
[2019-06-27] MEDS: METOPROLOL TARTRATE 25 MG TABLET PO SCH ×2 (11:38→20:27)
[2019-06-27] MEDS: DOCUSATE SODIUM 100 MG CAPSULE PO SCH ×2 (11:38→20:27)
[2019-06-27 12:03] LABS: ABG Base Excess 3.5 MMOL/L (-2.5-2.5); ABG HCO3 27.6 MMOL/L (20-26); ABG Oxygen Saturation 99.4 % (95-100); ABG PCO2 66.8 MM HG (35-48); ABG PH 7.283 (7.35-7.45); ABG TCO2 29.6 MMOL/L (23-27)
[2019-06-27] MEDS: cloNIDine 0.1 MG TABLET PO SCH ×2 (13:07→20:27)
[2019-06-27] MEDS: ALBUTEROL 2.5 MG/3 ML NEB RESP TX SCH ×3 (15:16→20:01)
[2019-06-27] MEDS: cefTRIAXone 1,000 MG in SYRINGE 1 EACH IV SCH (15:48)
[2019-06-27] MEDS: methylPREDNISolone SOD SUC 40 MG/1 ML VIAL IV SCH ×2 (15:51→22:34)
[2019-06-27 17:06] LABS: Appearance,CSF Clear; Lymphocytes,CSF 61 %; Monocytes,CSF 5 %; Neutrophils,CSF 33 %; Red Blood Cell,CSF 1608 C/CUMM; White Blood Cell,CSF 119 C/CUMM
[2019-06-27] MEDS ORDERED: METOPROLOL TARTRATE 5 MG/5 ML VIAL IV PRN (19:24)
[2019-06-27] MEDS ORDERED: DEXTROSE 50% 25 GM/50 ML VIAL IV PRN (19:27)
[2019-06-27] MEDS ORDERED: GLUCAGON 1 MG VIAL IM PRN (19:27)
[2019-06-27] MEDS: hydrALAZINE 20 MG/1 ML VIAL IV PRN (20:26)
[2019-06-27] MEDS: SODIUM CHLORIDE 0.9% 1,000 ML IV SCH (20:27)
[2019-06-27] MEDS: MONTELUKAST 10 MG TABLET PO SCH (20:28)
[2019-06-27] MEDS: INSULIN REGULAR 100 UNIT/ML SUBCUT SCH (23:56)
[2019-06-28] MEDS: ALBUTEROL 2.5 MG/3 ML NEB RESP TX SCH ×4 (00:45→19:45)
[2019-06-28 03:46] LABS: Basophils % 0.3 % (0.0-0.8); Hemoglobin 9.3 GM/DL (12.0-16.0); Immature Granulocytes % 0.5 %; Immature Granulocytes Absolute 0.04 #; Lymphocytes # 0.4 10*3/uL (1.4-4.0); Lymphocytes % 5.9 % (21.3-54.2); Mean Corpuscular Volume 91.7 FL (87-102); Mean Platelet Volume 9.7 FL (9.6-12.0); Monocytes % 1.1 % (1.7-12.7); Neutrophils % 92.2 % (38.7-73.9); Platelet Count 275 T/CUMM (130-400); Red Blood Count 3.38 MC/CUMM (3.8-5.5); Red Cell Distribution Width 15.9 % (9.3-17.3); White Blood Count 7.5 T/CUMM (4-12)
[2019-06-28] MEDS: metroNIDAZOLE INJ 500 MG in PREMIX 1 EACH IV SCH ×4 (04:06→22:58)
[2019-06-28 04:14] LABS: Calcium 8.5 MG/DL (8.5-10.1); Osmolality,Calculated 287.5 MOS/KG (273-304)
[2019-06-28 04:48] LABS: Hypochromasia Slight; Lymphocytes 1 % (20-55); Platelet Estimate Normal; Segmented Neutrophils 99 % (50-85); Total Cells Counted 100
[2019-06-28] MEDS: INSULIN REGULAR 100 UNIT/ML SUBCUT SCH ×4 (06:04→23:45)
[2019-06-28] MEDS: methylPREDNISolone SOD SUC 40 MG/1 ML VIAL IV SCH ×2 (06:05→17:59)
[2019-06-28] MEDS: VERAPAMIL SR 240 MG TABLET PO SCH (08:53)
[2019-06-28] MEDS: OLMESARTAN 5 MG TABLET PO SCH (08:53)
[2019-06-28] MEDS: ALLOPURINOL 300 MG TABLET PO SCH (08:53)
[2019-06-28] MEDS: cloNIDine 0.1 MG TABLET PO SCH ×2 (08:53→23:00)
[2019-06-28] MEDS: DOCUSATE SODIUM 100 MG CAPSULE PO SCH ×2 (08:53→20:51)
[2019-06-28] MEDS: PANTOPRAZOLE 40 MG TABLET PO SCH (08:53)
[2019-06-28] MEDS: METOPROLOL TARTRATE 25 MG TABLET PO SCH ×2 (08:53→20:51)
[2019-06-28] MEDS: ASPIRIN EC 81 MG TABLET PO SCH (08:53)
[2019-06-28] MEDS: CIPROFLOXACIN INJ 400 MG in PREMIX 1 EACH IV SCH ×2 (08:54→21:58)
[2019-06-28] MEDS: GABAPENTIN 300 MG CAPSULE PO SCH ×2 (08:54→20:51)
[2019-06-28] MEDS: INSULIN GLARGINE 100 UNIT/ML SUBCUT SCH (11:16)
[2019-06-28] MEDS: ACYCLOVIR INJ 750 MG in SODIUM CHLORIDE 0.9% 250 ML IV SCH ×2 (13:13→20:47)
[2019-06-28] MEDS: cefTRIAXone 1,000 MG in SYRINGE 1 EACH IV SCH (15:21)
[2019-06-28] MEDS: ACETAMINOPHEN 325 MG TABLET PO PRN (20:51)
[2019-06-28] MEDS: MONTELUKAST 10 MG TABLET PO SCH (20:51)
[2019-06-28] MEDS ORDERED: CIPROFLOXACIN 400 MG/200 ML PREMIX IV ONE (21:04)
[2019-06-29] MEDS: ALBUTEROL 2.5 MG/3 ML NEB RESP TX SCH ×4 (00:16→19:23)
[2019-06-29] MEDS: metroNIDAZOLE INJ 500 MG in PREMIX 1 EACH IV SCH ×4 (03:50→22:26)
[2019-06-29] MEDS: hydrALAZINE 20 MG/1 ML VIAL IV PRN (04:35)
[2019-06-29 04:47] LABS: Basophils % 0.1 % (0.0-0.8); Hematocrit 29.2 VOL% (35.7-47.0); Hemoglobin 8.8 GM/DL (12.0-16.0); Immature Granulocytes Absolute 0.15 #; Lymphocytes # 0.8 10*3/uL (1.4-4.0); Lymphocytes % 5.4 % (21.3-54.2); Mean Corpuscular HGB Conc 30.1 GM/DL (32-36); Mean Corpuscular Volume 89.8 FL (87-102); Mean Platelet Volume 9.8 FL (9.6-12.0); Monocytes % 6.3 % (1.7-12.7); Neutrophils % 87.2 % (38.7-73.9); Platelet Count 286 T/CUMM (130-400); Red Blood Count 3.25 MC/CUMM (3.8-5.5); Red Cell Distribution Width 15.9 % (9.3-17.3); White Blood Count 14.5 T/CUMM (4-12)
[2019-06-29] MEDS: ACYCLOVIR INJ 750 MG in SODIUM CHLORIDE 0.9% 250 ML IV SCH ×3 (04:56→21:16)
[2019-06-29 05:05] LABS: Calcium 8.7 MG/DL (8.5-10.1); Osmolality,Calculated 288.5 MOS/KG (273-304)
[2019-06-29] MEDS: INSULIN REGULAR 100 UNIT/ML SUBCUT SCH ×3 (06:10→18:26)
[2019-06-29] MEDS: methylPREDNISolone SOD SUC 40 MG/1 ML VIAL IV SCH ×2 (06:11→17:16)
[2019-06-29] MEDS: cloNIDine 0.1 MG TABLET PO SCH ×2 (08:56→21:21)
[2019-06-29] MEDS: ASPIRIN EC 81 MG TABLET PO SCH (08:56)
[2019-06-29] MEDS: OLMESARTAN 5 MG TABLET PO SCH (08:56)
[2019-06-29] MEDS: ALLOPURINOL 300 MG TABLET PO SCH (08:56)
[2019-06-29] MEDS: GABAPENTIN 300 MG CAPSULE PO SCH ×2 (08:56→21:21)
[2019-06-29] MEDS: VERAPAMIL SR 240 MG TABLET PO SCH (08:56)
[2019-06-29] MEDS: DOCUSATE SODIUM 100 MG CAPSULE PO SCH ×2 (08:56→21:21)
[2019-06-29] MEDS: PANTOPRAZOLE 40 MG TABLET PO SCH (08:56)
[2019-06-29] MEDS: METOPROLOL TARTRATE 25 MG TABLET PO SCH ×2 (08:56→21:21)
[2019-06-29] MEDS: CIPROFLOXACIN INJ 400 MG in PREMIX 1 EACH IV SCH ×2 (10:04→21:29)
[2019-06-29] MEDS: INSULIN GLARGINE 100 UNIT/ML SUBCUT SCH (12:10)
[2019-06-29] MEDS: cefTRIAXone 1,000 MG in SYRINGE 1 EACH IV SCH (14:38)
[2019-06-29] MEDS: MONTELUKAST 10 MG TABLET PO SCH (21:21)
[2019-06-30] MEDS: ALBUTEROL 2.5 MG/3 ML NEB RESP TX SCH ×4 (00:02→19:13)
[2019-06-30] MEDS: INSULIN REGULAR 100 UNIT/ML SUBCUT SCH ×4 (00:07→18:08)
[2019-06-30] MEDS: metroNIDAZOLE INJ 500 MG in PREMIX 1 EACH IV SCH ×4 (03:50→21:58)
[2019-06-30 04:58] LABS: Basophils % 0.1 % (0.0-0.8); Hematocrit 26.6 VOL% (35.7-47.0); Hemoglobin 8.1 GM/DL (12.0-16.0); Immature Granulocytes % 0.7 %; Immature Granulocytes Absolute 0.08 #; Lymphocytes # 0.9 10*3/uL (1.4-4.0); Lymphocytes % 7.9 % (21.3-54.2); Mean Corpuscular HGB Conc 30.5 GM/DL (32-36); Mean Corpuscular Volume 89.6 FL (87-102); Mean Platelet Volume 9.8 FL (9.6-12.0); Monocytes % 6.7 % (1.7-12.7); Neutrophils % 84.6 % (38.7-73.9); Platelet Count 272 T/CUMM (130-400); Red Blood Count 2.97 MC/CUMM (3.8-5.5); Red Cell Distribution Width 16.3 % (9.3-17.3)
[2019-06-30 05:26] LABS: Osmolality,Calculated 294.4 MOS/KG (273-304)
[2019-06-30] MEDS: methylPREDNISolone SOD SUC 40 MG/1 ML VIAL IV SCH ×2 (05:32→18:09)
[2019-06-30] MEDS: ACYCLOVIR INJ 750 MG in SODIUM CHLORIDE 0.9% 250 ML IV SCH ×2 (05:36→18:29)
[2019-06-30] MEDS: VERAPAMIL SR 240 MG TABLET PO SCH (10:25)
[2019-06-30] MEDS: DOCUSATE SODIUM 100 MG CAPSULE PO SCH ×2 (10:25→21:49)
[2019-06-30] MEDS: OLMESARTAN 5 MG TABLET PO SCH (10:25)
[2019-06-30] MEDS: METOPROLOL TARTRATE 25 MG TABLET PO SCH ×2 (10:25→21:49)
[2019-06-30] MEDS: GABAPENTIN 300 MG CAPSULE PO SCH ×2 (10:26→21:49)
[2019-06-30] MEDS: PANTOPRAZOLE 40 MG TABLET PO SCH (10:26)
[2019-06-30] MEDS: ALLOPURINOL 300 MG TABLET PO SCH (10:26)
[2019-06-30] MEDS: cloNIDine 0.1 MG TABLET PO SCH ×2 (10:27→22:01)
[2019-06-30] MEDS: CIPROFLOXACIN INJ 400 MG in PREMIX 1 EACH IV SCH ×2 (10:28→21:50)
[2019-06-30] MEDS: ASPIRIN EC 81 MG TABLET PO SCH (13:27)
[2019-06-30] MEDS: INSULIN GLARGINE 100 UNIT/ML SUBCUT SCH (13:35)
[2019-06-30] MEDS: Fluticasone Furoate-Vilanterol [Breo Ellipta] 1 PUFF INH SCH (13:38)
[2019-06-30] MEDS: cefTRIAXone 1,000 MG in SYRINGE 1 EACH IV SCH (17:08)
[2019-06-30] MEDS: MONTELUKAST 10 MG TABLET PO SCH (22:01)
[2019-07-01] MEDS: ALBUTEROL 2.5 MG/3 ML NEB RESP TX SCH ×4 (00:05→19:30)
[2019-07-01] MEDS: ACYCLOVIR INJ 750 MG in SODIUM CHLORIDE 0.9% 250 ML IV SCH ×3 (00:37→13:34)
[2019-07-01] MEDS: INSULIN REGULAR 100 UNIT/ML SUBCUT SCH ×4 (00:39→19:02)
[2019-07-01] MEDS: metroNIDAZOLE INJ 500 MG in PREMIX 1 EACH IV SCH ×4 (04:55→16:45)
[2019-07-01] MEDS: methylPREDNISolone SOD SUC 40 MG/1 ML VIAL IV SCH ×2 (05:07→19:02)
[2019-07-01 08:13] LABS: Hemoglobin 8.7 GM/DL (12.0-16.0)
[2019-07-01] MEDS: OLMESARTAN 5 MG TABLET PO SCH (09:40)
[2019-07-01] MEDS: GABAPENTIN 300 MG CAPSULE PO SCH ×2 (09:40→22:50)
[2019-07-01] MEDS: ASPIRIN EC 81 MG TABLET PO SCH (09:40)
[2019-07-01] MEDS: cloNIDine 0.1 MG TABLET PO SCH ×2 (09:40→22:49)
[2019-07-01] MEDS: PANTOPRAZOLE 40 MG TABLET PO SCH (09:40)
[2019-07-01] MEDS: METOPROLOL TARTRATE 25 MG TABLET PO SCH ×2 (09:40→22:49)
[2019-07-01] MEDS: DOCUSATE SODIUM 100 MG CAPSULE PO SCH ×2 (09:40→22:49)
[2019-07-01] MEDS: ALLOPURINOL 300 MG TABLET PO SCH (09:40)
[2019-07-01] MEDS: Fluticasone Furoate-Vilanterol [Breo Ellipta] 1 PUFF INH SCH (09:42)
[2019-07-01] MEDS: VERAPAMIL SR 240 MG TABLET PO SCH (09:42)
[2019-07-01] MEDS: CIPROFLOXACIN INJ 400 MG in PREMIX 1 EACH IV SCH ×2 (09:42→22:52)
[2019-07-01] MEDS: INSULIN GLARGINE 100 UNIT/ML SUBCUT SCH (13:34)
[2019-07-01] MEDS: cefTRIAXone 1,000 MG in SYRINGE 1 EACH IV SCH (16:15)
[2019-07-01] MEDS: MONTELUKAST 10 MG TABLET PO SCH (22:50)
[2019-07-02] MEDS: INSULIN REGULAR 100 UNIT/ML SUBCUT SCH ×3 (01:24→13:29)
[2019-07-02] MEDS: ACYCLOVIR INJ 750 MG in SODIUM CHLORIDE 0.9% 250 ML IV SCH (01:47)
[2019-07-02] MEDS: ALBUTEROL 2.5 MG/3 ML NEB RESP TX SCH ×3 (01:50→13:50)
[2019-07-02] MEDS: metroNIDAZOLE INJ 500 MG in PREMIX 1 EACH IV SCH ×3 (02:18→13:13)
[2019-07-02] MEDS: methylPREDNISolone SOD SUC 40 MG/1 ML VIAL IV SCH (05:54)
[2019-07-02] MEDS ORDERED: ACYCLOVIR INJ 750 MG in SODIUM CHLORIDE 0.9% 250 ML IV SCH ×2 (08:30→10:30)
[2019-07-02] MEDS: OLMESARTAN 5 MG TABLET PO SCH (09:04)
[2019-07-02] MEDS: METOPROLOL TARTRATE 25 MG TABLET PO SCH (09:04)
[2019-07-02] MEDS: PANTOPRAZOLE 40 MG TABLET PO SCH (09:04)
[2019-07-02] MEDS: ALLOPURINOL 300 MG TABLET PO SCH (09:04)
[2019-07-02] MEDS: GABAPENTIN 300 MG CAPSULE PO SCH (09:04)
[2019-07-02] MEDS: ASPIRIN EC 81 MG TABLET PO SCH (09:04)
[2019-07-02] MEDS: CIPROFLOXACIN INJ 400 MG in PREMIX 1 EACH IV SCH (09:05)
[2019-07-02] MEDS: Fluticasone Furoate-Vilanterol [Breo Ellipta] 1 PUFF INH SCH (09:09)
[2019-07-02] MEDS: cloNIDine 0.1 MG TABLET PO SCH (09:09)
[2019-07-02] MEDS: DOCUSATE SODIUM 100 MG CAPSULE PO SCH (09:09)
[2019-07-02] MEDS: VERAPAMIL SR 240 MG TABLET PO SCH (09:09)
[2019-07-02 13:13] LABS: Basophils % 0.2 % (0.0-0.8); Hematocrit 31.4 VOL% (35.7-47.0); Hemoglobin 9.6 GM/DL (12.0-16.0); Immature Granulocytes % 1.7 %; Lymphocytes # 0.7 10*3/uL (1.4-4.0); Lymphocytes % 6.3 % (21.3-54.2); Mean Corpuscular HGB Conc 30.6 GM/DL (32-36); Mean Corpuscular Volume 91.3 FL (87-102); Mean Platelet Volume 9.8 FL (9.6-12.0); Monocytes % 3.3 % (1.7-12.7); NRBC # 0.03 10*3/uL; Neutrophils % 88.5 % (38.7-73.9); Platelet Count 305 T/CUMM (130-400); Red Blood Count 3.44 MC/CUMM (3.8-5.5); Red Cell Distribution Width 16.2 % (9.3-17.3); White Blood Count 11.8 T/CUMM (4-12)
[2019-07-02] MEDS: INSULIN GLARGINE 100 UNIT/ML SUBCUT SCH (13:30)
[2019-07-02 14:21] LABS: Calcium 8.5 MG/DL (8.5-10.1); Osmolality,Calculated 294.5 MOS/KG (273-304)
[2019-07-02 16:37] VITALS: BP 135/81
[2019-07-02] MEDS: cefTRIAXone 1,000 MG in SYRINGE 1 EACH IV SCH (16:42)
== END 2019-07-02 18:00 | disposition home or self-care (01) | DRG 71 ==
LOC: EDBD → EDUNIT# → N.ED 06:21 → N.5E 06:21 → N.CC 06-27 13:39 → N.TELES 06-29 15:40
PROVIDERS: ADMIT Family Medicine; ATTEND Family Medicine

== ENCOUNTER 2020-09-04 11:09 | Observation (INO) ==
[2020-09-04] MEDS ORDERED: DEXTROSE 50% 25 GM/50 ML SYRINGE IV ONE ×3 (11:25→16:49)
[2020-09-04] MEDS ORDERED: DEXTROSE 50% 25 GM/50 ML VIAL IV STA ×3 (11:26→14:07)
[2020-09-04 12:15] LABS: Basophils % 0.4 % (0.0-0.8); Eosinophils % 0.3 % (0.00-10.9); Hemoglobin 13.1 GM/DL (12.0-16.0); Immature Granulocytes % 0.6 %; Immature Granulocytes Absolute 0.06 #; Lymphocytes # 1.5 10*3/uL (1.4-4.0); Mean Corpuscular HGB Conc 31.2 GM/DL (32-36); Mean Corpuscular Volume 91.7 FL (87-102); Monocytes % 6.8 % (1.7-12.7); Neutrophils % 77.9 % (38.7-73.9); Platelet Count 209 T/CUMM (130-400); Red Blood Count 4.58 MC/CUMM (3.8-5.5); Red Cell Distribution Width 15.1 % (9.3-17.3); White Blood Count 10.5 T/CUMM (4-12)
[2020-09-04 12:32] LABS: Osmolality,Calculated 268.4 MOS/KG (273-304)
[2020-09-04] MEDS ORDERED: DEXTROSE 5% NACL 0.45% 1,000 ML IV SCH (15:00)
[2020-09-04] MEDS ORDERED: ACETAMINOPHEN 325 MG TABLET PO PRN (15:02)
[2020-09-04] MEDS ORDERED: DEXTROSE 50% 25 GM/50 ML VIAL IV PRN (15:02)
[2020-09-04] MEDS ORDERED: GLUCAGON 1 MG VIAL IM PRN (15:02)
[2020-09-04] MEDS ORDERED: ONDANSETRON 4 MG/2 ML VIAL IV PRN (15:02)
[2020-09-04] MEDS ORDERED: ALBUTEROL 2.5 MG/3 ML NEB RESP TX PRN (15:16)
[2020-09-04] MEDS ORDERED: cloNIDine 0.1 MG TABLET PO PRN (15:16)
[2020-09-04] MEDS ORDERED: DICLOFENAC 1% GEL 100 GM TUBE TOP PRN (15:16)
[2020-09-04] MEDS ORDERED: DEXT 5% NACL 0.45% KCL 40 MEQ 40 MEQ/1,000 ML BAG IV SCH (15:30)
[2020-09-04] MEDS ORDERED: DEXT 5% NACL 0.9% KCL 40 MEQ 40 MEQ/1,000 ML BAG IV SCH ×2 (15:30→18:00)
[2020-09-04 15:35] LABS: Risk Ratio 2.63; Thyroid Stimulating Hormone 0.466 uIU/ml (0.358-3.74)
[2020-09-04] MEDS: DEXTROSE 10% 500 ML IV SCH (17:00)
[2020-09-04] MEDS ORDERED: MONTELUKAST 10 MG TABLET PO SCH (21:00)
[2020-09-04] MEDS ORDERED: ENOXAPARIN 40 MG/0.4 ML SYRINGE SUBCUT SCH (21:00)
[2020-09-04] MEDS: METOPROLOL TARTRATE 25 MG TABLET PO SCH (21:01)
[2020-09-05 05:18] LABS: Basophils # 0.1 10*3/uL (0.0-0.2); Basophils % 0.5 % (0.0-0.8); Eosinophils # 0.2 10*3/uL (0.0-0.87); Eosinophils % 1.9 % (0.00-10.9); Hematocrit 37.6 VOL% (35.7-47.0); Hemoglobin 11.9 GM/DL (12.0-16.0); Immature Granulocytes % 1.6 %; Immature Granulocytes Absolute 0.15 #; Lymphocytes # 2.2 10*3/uL (1.4-4.0); Mean Corpuscular HGB Conc 31.6 GM/DL (32-36); Monocytes % 8.9 % (1.7-12.7); Neutrophils % 64.1 % (38.7-73.9); Platelet Count 193 T/CUMM (130-400); Red Blood Count 4.13 MC/CUMM (3.8-5.5); Red Cell Distribution Width 15.1 % (9.3-17.3); White Blood Count 9.4 T/CUMM (4-12)
[2020-09-05] MEDS: DEXTROSE 10% 500 ML IV SCH (06:05)
[2020-09-05 06:50] LABS: Calcium 8.6 MG/DL (8.5-10.1); Osmolality,Calculated 266.5 MOS/KG (273-304)
[2020-09-05] MEDS ORDERED: allopurinoL 300 MG TABLET PO SCH (09:00)
[2020-09-05] MEDS ORDERED: VERAPAMIL SR 240 MG TABLET PO SCH (09:00)
[2020-09-05] MEDS ORDERED: ROSUVASTATIN 10 MG TABLET PO SCH (09:00)
[2020-09-05] MEDS ORDERED: MELOXICAM 7.5 MG TABLET PO SCH (09:00)
[2020-09-05] MEDS ORDERED: OLMESARTAN 5 MG TABLET PO SCH (09:00)
[2020-09-05] MEDS: METOPROLOL TARTRATE 25 MG TABLET PO SCH (09:23)
[2020-09-05 11:46] VITALS: BP 165/82
== END 2020-09-05 14:47 | disposition home or self-care (01) ==
LOC: N.EDINP 11:09 → N.ED 11:09 → N.5E 17:38
PROVIDERS: ADMIT Emergency Medicine; ATTEND Emergency Medicine

== ENCOUNTER 2020-09-08 15:22 | Inpatient (IN) ==
[2020-09-08 15:59] LABS: Basophils % 0.4 % (0.0-0.8); Eosinophils # 0.2 10*3/uL (0.0-0.87); Eosinophils % 1.6 % (0.00-10.9); Hematocrit 36.8 VOL% (35.7-47.0); Hemoglobin 11.6 GM/DL (12.0-16.0); Immature Granulocytes % 1.3 %; Immature Granulocytes Absolute 0.12 #; Lymphocytes # 1.6 10*3/uL (1.4-4.0); Lymphocytes % 17.1 % (21.3-54.2); Mean Corpuscular HGB Conc 31.5 GM/DL (32-36); Mean Corpuscular Volume 92.5 FL (87-102); Mean Platelet Volume 9.5 FL (9.6-12.0); Monocytes % 12.1 % (1.7-12.7); Neutrophils % 67.5 % (38.7-73.9); Platelet Count 200 T/CUMM (130-400); Red Blood Count 3.98 MC/CUMM (3.8-5.5); Red Cell Distribution Width 15.2 % (9.3-17.3); White Blood Count 9.2 T/CUMM (4-12)
[2020-09-08 16:11] LABS: PT Patient Result 10.3 SECS (9.8-11.9); Partial Thromboplastin Time 26.2 SECS (23.9-33.8)
[2020-09-08] MEDS ORDERED: FUROSEMIDE 100 MG/10 ML VIAL IV STA (16:13)
[2020-09-08 16:22] LABS: Alanine Aminotransferase < 6 U/L (13-56); Albumin 3.1 G/DL (3.4-5.0); Alkaline Phosphatase 57 U/L (45-117); Aspartate Amino Transferase 30 U/L (0-37); Blood Urea Nitrogen 25 MG/DL (7-18); Calcium 8.3 MG/DL (8.5-10.1); Estimated Glom Filtration Rate 32 ML/MIN; Glucose 180 MG/DL (74-106); Osmolality,Calculated 266.9 MOS/KG (273-304); Total Protein 6.1 G/DL (6.4-8.3)
[2020-09-08] MEDS ORDERED: ALBUTEROL/IPRATROPIUM 3 ML NEB RESP TX STA (16:37)
[2020-09-08] MEDS ORDERED: methylPREDNISolone SOD SUC 125 MG/2 ML VIAL IV STA (16:39)
[2020-09-08] MEDS ORDERED: DEXTROSE 50% 25 GM/50 ML VIAL IV PRN (18:27)
[2020-09-08] MEDS ORDERED: GLUCAGON 1 MG VIAL IM PRN (18:27)
[2020-09-08] MEDS ORDERED: ONDANSETRON 4 MG/2 ML VIAL IV PRN (18:27)
[2020-09-08] MEDS: ALBUTEROL/IPRATROPIUM 3 ML NEB RESP TX SCH (19:12)
[2020-09-08 19:18] LABS: ABG Base Excess 5.3 MMOL/L (-2.5-2.5); ABG HCO3 29.2 MMOL/L (20-26); ABG Oxygen Saturation 97.7 % (95-100); ABG PCO2 63.1 MM HG (35-48); ABG TCO2 29.8 MMOL/L (23-27)
[2020-09-08] MEDS: SODIUM CHLORIDE 0.9% 1,000 ML IV SCH (19:29)
[2020-09-08] MEDS ORDERED: POLYETHYLENE GLYCOL POWDER 17 GM PACK PO PRN (19:32)
[2020-09-08] MEDS ORDERED: OMALIZUMAB 150 MG/ML SYRINGE SUBCUT SCH (20:00)
[2020-09-08] MEDS: CARBIDOPA/LEVODOPA 25-100 MG TABLET PO SCH (21:03)
[2020-09-08] MEDS: INSULIN LISPRO 100 UNIT/ML SUBCUT SCH (21:03)
[2020-09-08] MEDS: ENOXAPARIN 40 MG/0.4 ML SYRINGE SUBCUT SCH (21:03)
[2020-09-08] MEDS: methylPREDNISolone SOD SUC 125 MG/2 ML VIAL IV SCH (21:04)
[2020-09-08] MEDS: MONTELUKAST 10 MG TABLET PO SCH (21:04)
[2020-09-09] MEDS: ALBUTEROL/IPRATROPIUM 3 ML NEB RESP TX SCH ×4 (00:55→20:08)
[2020-09-09 01:03] LABS: Bacteria,Urine Occasional /HPF (Few); Bilirubin,Urine Negative (Negative); Blood, Urine Moderate mg/dL (Negative); Glucose,Urine (UA) Negative (Negative); Hyaline Casts,Urine 3 /LPF (0-3); Ketones,Urine Negative (Negative); Mucus,Urine Occasional /LPF (Occasional); Nitrite,Urine Negative (Negative); Protein,Urine Negative; RBC,Urine 1 /HPF (0-4); Squamous Epithelial Cell,Urine Occasional /HPF (0-10); Urine Appearance CLEAR (Clear); Urine Color Straw (Yellow); Urine Specific Gravity 1.008 (1.001-1.035); Urine Urobilinogen < 2.0 EU/DL (0.2-1.0); WBC,Urine 2 /HPF (0-6)
[2020-09-09 03:47] LABS: ABG Base Excess 5.6 MMOL/L (-2.5-2.5); ABG HCO3 33.1 MMOL/L (20-26); ABG Oxygen Saturation 95.9 % (95-100); ABG PCO2 62.7 MM HG (35-48); ABG PO2 82.6 MM HG (80-95); Allen Test Positive; Pt O2 Delivery Device Room Air
[2020-09-09] MEDS: SODIUM CHLORIDE 0.9% 1,000 ML IV SCH ×2 (05:51→13:41)
[2020-09-09 05:59] LABS: Basophils % 0.1 % (0.0-0.8); Hematocrit 37.1 VOL% (35.7-47.0); Hemoglobin 11.9 GM/DL (12.0-16.0); Immature Granulocytes % 1.1 %; Lymphocytes # 0.6 10*3/uL (1.4-4.0); Mean Corpuscular HGB Conc 32.1 GM/DL (32-36); Mean Corpuscular Volume 90.7 FL (87-102); Mean Platelet Volume 9.8 FL (9.6-12.0); Monocytes % 0.8 % (1.7-12.7); Platelet Count 189 T/CUMM (130-400); Red Blood Count 4.09 MC/CUMM (3.8-5.5); Red Cell Distribution Width 14.6 % (9.3-17.3)
[2020-09-09 06:32] LABS: Alanine Aminotransferase < 6 U/L (13-56); Albumin 2.8 G/DL (3.4-5.0); Alkaline Phosphatase 56 U/L (45-117); Aspartate Amino Transferase 24 U/L (0-37); Blood Urea Nitrogen 27 MG/DL (7-18); Calcium 8.6 MG/DL (8.5-10.1); Estimated Glom Filtration Rate 46 ML/MIN; Glucose 246 MG/DL (74-106); HDL Cholesterol 65 MG/DL (40-60); Osmolality,Calculated 270.9 MOS/KG (273-304); Risk Ratio 2.89; Thyroid Stimulating Hormone 0.184 uIU/ml (0.358-3.74); Total Protein 6.4 G/DL (6.4-8.3); Triglycerides 103 MG/DL (2-150); VLDL CHOLESTEROL 20.6 MG/DL
[2020-09-09 06:33] LABS: Hypochromasia Slight; Lymphocytes 6 % (20-55); Microcytosis Slight; Platelet Estimate Adequate; Segmented Neutrophils 94 % (50-85); Total Cells Counted 100
[2020-09-09] MEDS ORDERED: FUROSEMIDE 20 MG/2 ML VIAL IV SCH (08:00)
[2020-09-09] MEDS: INSULIN LISPRO 100 UNIT/ML SUBCUT SCH ×4 (08:27→22:02)
[2020-09-09] MEDS: CARBIDOPA/LEVODOPA 25-100 MG TABLET PO SCH ×3 (08:29→22:02)
[2020-09-09] MEDS: allopurinoL 300 MG TABLET PO SCH (08:29)
[2020-09-09] MEDS: ROSUVASTATIN 10 MG TABLET PO SCH (08:29)
[2020-09-09] MEDS: methylPREDNISolone SOD SUC 125 MG/2 ML VIAL IV SCH ×2 (08:30→22:03)
[2020-09-09] MEDS ORDERED: PANTOPRAZOLE 40 MG TABLET PO SCH (09:00)
[2020-09-09] MEDS: INSULIN NPH 100 UNIT/ML SUBCUT SCH (17:24)
[2020-09-09] MEDS: ENOXAPARIN 40 MG/0.4 ML SYRINGE SUBCUT SCH (22:01)
[2020-09-09] MEDS: MONTELUKAST 10 MG TABLET PO SCH (22:02)
[2020-09-10] MEDS: SODIUM CHLORIDE 0.9% 1,000 ML IV SCH ×2 (00:43→12:04)
[2020-09-10] MEDS: ALBUTEROL/IPRATROPIUM 3 ML NEB RESP TX SCH ×2 (01:54→07:50)
[2020-09-10 05:29] LABS: Basophils % 0.1 % (0.0-0.8); Hematocrit 35.2 VOL% (35.7-47.0); Hemoglobin 11.3 GM/DL (12.0-16.0); Immature Granulocytes Absolute 0.16 #; Lymphocytes # 0.6 10*3/uL (1.4-4.0); Lymphocytes % 3.7 % (21.3-54.2); Mean Corpuscular HGB Conc 32.1 GM/DL (32-36); Mean Corpuscular Volume 90.3 FL (87-102); Mean Platelet Volume 10.3 FL (9.6-12.0); Neutrophils % 91.2 % (38.7-73.9); Platelet Count 210 T/CUMM (130-400); Red Cell Distribution Width 14.6 % (9.3-17.3); White Blood Count 16.1 T/CUMM (4-12)
[2020-09-10 05:50] LABS: Alanine Aminotransferase < 6 U/L (13-56); Alkaline Phosphatase 54 U/L (45-117); Aspartate Amino Transferase 20 U/L (0-37); Blood Urea Nitrogen 31 MG/DL (7-18); Calcium 8.5 MG/DL (8.5-10.1); Estimated Glom Filtration Rate 53 ML/MIN; Glucose 222 MG/DL (74-106); Osmolality,Calculated 281.2 MOS/KG (273-304); Total Protein 6.6 G/DL (6.4-8.3)
[2020-09-10 05:55] LABS: Band Neutrophils 3 % (0-10); Hypochromasia 1+; Lymphocytes 4 % (20-55); Microcytosis Slight; Segmented Neutrophils 88 % (50-85); Total Cells Counted 100
[2020-09-10 05:56] LABS: Platelet Estimate Normal; Spherocytes Slight
[2020-09-10] MEDS: INSULIN LISPRO 100 UNIT/ML SUBCUT SCH ×2 (09:38→12:04)
[2020-09-10] MEDS: INSULIN NPH 100 UNIT/ML SUBCUT SCH (09:38)
[2020-09-10] MEDS: methylPREDNISolone SOD SUC 125 MG/2 ML VIAL IV SCH (09:39)
[2020-09-10] MEDS: CARBIDOPA/LEVODOPA 25-100 MG TABLET PO SCH ×2 (09:40→14:30)
[2020-09-10] MEDS: ROSUVASTATIN 10 MG TABLET PO SCH (09:40)
[2020-09-10] MEDS: allopurinoL 300 MG TABLET PO SCH (09:40)
[2020-09-10 11:46] VITALS: BP 164/76
== END 2020-09-10 14:38 | disposition home health service (06) | DRG 202 ==
LOC: N.ED 15:22 → N.EDINP 18:27 → N.TELEN 19:31 → N.5E 23:28
PROVIDERS: ADMIT Internal Medicine; ATTEND Internal Medicine

== ENCOUNTER 2021-01-01 09:53 | Observation (INO) ==
[2021-01-01] MEDS ORDERED: FUROSEMIDE 100 MG/10 ML VIAL IV STA (10:28)
[2021-01-01 10:45] LABS: Troponin I 0.015 NG/ML (0.00-0.045)
[2021-01-01 10:48] LABS: Basophils # 0.1 10*3/uL (0.0-0.2); Basophils % 0.6 % (0.0-0.8); Eosinophils % 0.4 % (0.00-10.9); Hematocrit 40.5 VOL% (35.7-47.0); Hemoglobin 12.5 GM/DL (12.0-16.0); Immature Granulocytes % 0.5 %; Immature Granulocytes Absolute 0.05 #; Lymphocytes % 19.2 % (21.3-54.2); Mean Corpuscular HGB Conc 30.9 GM/DL (32-36); Mean Corpuscular Volume 92.3 FL (87-102); Mean Platelet Volume 10.9 FL (9.6-12.0); Monocytes % 7.6 % (1.7-12.7); Neutrophils % 71.7 % (38.7-73.9); Platelet Count 203 T/CUMM (130-400); Red Blood Count 4.39 MC/CUMM (3.8-5.5); Red Cell Distribution Width 14.9 % (9.3-17.3); White Blood Count 10.5 T/CUMM (4-12)
[2021-01-01] MEDS ORDERED: ALBUTEROL 2.5 MG/3 ML NEB RESP TX STA (11:11)
[2021-01-01 11:12] LABS: Albumin 3.3 G/DL (3.4-5.0); Bilirubin,Total 0.5 MG/DL (0.2-1.0); Calcium 9.2 MG/DL (8.5-10.1); Osmolality,Calculated 278.8 MOS/KG (273-304); Potassium 4.3 MMOL/L (3.5-5.1); Total Protein 6.8 G/DL (6.4-8.3)
[2021-01-01] MEDS ORDERED: DEXTROSE 50% 25 GM/50 ML VIAL IV PRN ×2 (14:03)
[2021-01-01] MEDS ORDERED: GLUCAGON 1 MG VIAL IM PRN ×2 (14:03)
[2021-01-01] MEDS: CARBIDOPA/LEVODOPA 25-100 MG TABLET PO SCH ×2 (16:28→22:06)
[2021-01-01] MEDS: INSULIN LISPRO 100 UNIT/ML SUBCUT SCH ×2 (16:29→22:09)
[2021-01-01] MEDS: ALBUTEROL/IPRATROPIUM 3 ML NEB RESP TX PRN (21:16)
[2021-01-01] MEDS ORDERED: cloNIDine 0.1 MG TABLET PO PRN (21:42)
[2021-01-01] MEDS: MONTELUKAST 10 MG TABLET PO SCH (22:05)
[2021-01-01] MEDS: METOPROLOL TARTRATE 25 MG TABLET PO SCH (22:06)
[2021-01-01] MEDS: FLUTICASONE/SALMETEROL 250-50 DISKUS 14 DOSE INH SCH (22:07)
[2021-01-01] MEDS: ENOXAPARIN 40 MG/0.4 ML SYRINGE SUBCUT SCH (22:09)
[2021-01-02 05:36] LABS: Basophils # 0.1 10*3/uL (0.0-0.2); Basophils % 0.8 % (0.0-0.8); Eosinophils # 0.3 10*3/uL (0.0-0.87); Hematocrit 41.5 VOL% (35.7-47.0); Hemoglobin 12.7 GM/DL (12.0-16.0); Immature Granulocytes % 0.4 %; Immature Granulocytes Absolute 0.04 #; Lymphocytes # 2.6 10*3/uL (1.4-4.0); Lymphocytes % 28.4 % (21.3-54.2); Mean Corpuscular HGB Conc 30.6 GM/DL (32-36); Mean Corpuscular Volume 93.7 FL (87-102); Mean Platelet Volume 10.5 FL (9.6-12.0); Monocytes % 8.9 % (1.7-12.7); Neutrophils % 58.5 % (38.7-73.9); Platelet Count 210 T/CUMM (130-400); Red Blood Count 4.43 MC/CUMM (3.8-5.5); Red Cell Distribution Width 15.1 % (9.3-17.3)
[2021-01-02 06:18] LABS: Calcium 9.1 MG/DL (8.5-10.1); Osmolality,Calculated 282.4 MOS/KG (273-304); Potassium 3.8 MMOL/L (3.5-5.1); Risk Ratio 2.43; Thyroid Stimulating Hormone 1.38 uIU/ml (0.358-3.74); VLDL CHOLESTEROL 40.8 MG/DL
[2021-01-02] MEDS: allopurinoL 300 MG TABLET PO SCH (08:14)
[2021-01-02] MEDS: METOPROLOL TARTRATE 25 MG TABLET PO SCH (08:14)
[2021-01-02] MEDS: FLUTICASONE/SALMETEROL 250-50 DISKUS 14 DOSE INH SCH ×2 (08:14→23:49)
[2021-01-02] MEDS: ROSUVASTATIN 10 MG TABLET PO SCH (08:14)
[2021-01-02] MEDS: VERAPAMIL SR 240 MG TABLET PO SCH ×2 (08:20→09:12)
[2021-01-02] MEDS: INSULIN LISPRO 100 UNIT/ML SUBCUT SCH ×3 (08:20→16:11)
[2021-01-02] MEDS: CARBIDOPA/LEVODOPA 25-100 MG TABLET PO SCH ×3 (08:20→23:51)
[2021-01-02] MEDS: SPIRONOLACTONE 25 MG TABLET PO SCH (09:12)
[2021-01-02] MEDS: OLMESARTAN 20 MG TABLET PO SCH (09:12)
[2021-01-02] MEDS: hydroCHLOROthiazide 25 MG TABLET PO SCH (09:12)
[2021-01-02] MEDS: NEBIVOLOL 5 MG TABLET PO SCH (09:12)
[2021-01-02] MEDS: ALBUTEROL/IPRATROPIUM 3 ML NEB RESP TX PRN (13:02)
[2021-01-02] MEDS: FUROSEMIDE 40 MG TABLET PO SCH (16:10)
[2021-01-02] MEDS: methylPREDNISolone SOD SUC 40 MG/1 ML VIAL IV SCH (16:11)
[2021-01-02] MEDS ORDERED: ALBUTEROL/IPRATROPIUM 3 ML NEB RESP TX SCH (19:00)
[2021-01-02] MEDS: ALBUTEROL/IPRATROPIUM 3 ML NEB RESP TX SCH (19:50)
[2021-01-02] MEDS: MONTELUKAST 10 MG TABLET PO SCH (23:51)
[2021-01-02] MEDS: ENOXAPARIN 40 MG/0.4 ML SYRINGE SUBCUT SCH (23:58)
[2021-01-03] MEDS: INSULIN LISPRO 100 UNIT/ML SUBCUT SCH ×3 (00:03→11:55)
[2021-01-03] MEDS: methylPREDNISolone SOD SUC 40 MG/1 ML VIAL IV SCH ×2 (00:04→07:10)
[2021-01-03] MEDS: ALBUTEROL/IPRATROPIUM 3 ML NEB RESP TX SCH ×3 (01:00→13:12)
[2021-01-03 06:14] LABS: Basophils % 0.1 % (0.0-0.8); Hematocrit 42.8 VOL% (35.7-47.0); Hemoglobin 13.2 GM/DL (12.0-16.0); Immature Granulocytes % 0.7 %; Immature Granulocytes Absolute 0.06 #; Lymphocytes # 0.7 10*3/uL (1.4-4.0); Lymphocytes % 7.8 % (21.3-54.2); Mean Corpuscular HGB Conc 30.8 GM/DL (32-36); Mean Corpuscular Volume 92.4 FL (87-102); Mean Platelet Volume 9.6 FL (9.6-12.0); Monocytes % 0.8 % (1.7-12.7); Neutrophils % 90.6 % (38.7-73.9); Platelet Count 215 T/CUMM (130-400); Red Blood Count 4.63 MC/CUMM (3.8-5.5); Red Cell Distribution Width 14.6 % (9.3-17.3); White Blood Count 8.8 T/CUMM (4-12)
[2021-01-03 06:35] LABS: Lymphocytes 6 % (20-55); Segmented Neutrophils 94 % (50-85); Total Cells Counted 100
[2021-01-03 06:36] LABS: Hypochromasia 1+; Microcytosis 1+
[2021-01-03 06:37] LABS: Ovalocytes Slight
[2021-01-03 06:38] LABS: Platelet Estimate Normal
[2021-01-03 06:48] LABS: Calcium 9.5 MG/DL (8.5-10.1); Osmolality,Calculated 283.8 MOS/KG (273-304); Potassium 4.3 MMOL/L (3.5-5.1)
[2021-01-03] MEDS ORDERED: NEBIVOLOL 5 MG TABLET PO ONE (09:12)
[2021-01-03] MEDS: FUROSEMIDE 40 MG TABLET PO SCH (09:13)
[2021-01-03] MEDS: SPIRONOLACTONE 25 MG TABLET PO SCH (09:13)
[2021-01-03] MEDS: OLMESARTAN 20 MG TABLET PO SCH (09:13)
[2021-01-03] MEDS: hydroCHLOROthiazide 25 MG TABLET PO SCH (09:13)
[2021-01-03] MEDS: VERAPAMIL SR 240 MG TABLET PO SCH (09:13)
[2021-01-03] MEDS: allopurinoL 300 MG TABLET PO SCH (09:13)
[2021-01-03] MEDS: ROSUVASTATIN 10 MG TABLET PO SCH (09:13)
[2021-01-03] MEDS: CARBIDOPA/LEVODOPA 25-100 MG TABLET PO SCH (09:14)
[2021-01-03] MEDS: FLUTICASONE/SALMETEROL 250-50 DISKUS 14 DOSE INH SCH (09:14)
[2021-01-03] MEDS: NEBIVOLOL 5 MG TABLET PO SCH (09:54)
[2021-01-03] MEDS ORDERED: ASPIRIN EC 81 MG TABLET PO SCH (10:35)
[2021-01-03 12:26] VITALS: BP 142/66
[2021-01-04] MEDS ORDERED: NEBIVOLOL 10 MG TABLET PO SCH (09:00)
== END 2021-01-03 14:08 | disposition home health service (06) ==
LOC: N.TELES 09:53 → N.ED 09:53 → SUATTDRO 14:23 → N.TELES 16:04
PROVIDERS: ADMIT Internal Medicine; ATTEND Internal Medicine Geriatric Medicine

== ENCOUNTER 2021-09-26 10:12 | Inpatient (IN) ==
[2021-09-26 11:20] LABS: Basophils # 0.1 10*3/uL (0.0-0.2); Eosinophils # 0.2 10*3/uL (0.0-0.87); Eosinophils % 2.7 % (0.00-10.9); Hematocrit 43.2 VOL% (35.7-47.0); Hemoglobin 13.1 GM/DL (12.0-16.0); Immature Granulocytes % 0.9 %; Immature Granulocytes Absolute 0.07 #; Lymphocytes # 1.8 10*3/uL (1.4-4.0); Lymphocytes % 22.4 % (21.3-54.2); Mean Corpuscular HGB Conc 30.3 GM/DL (32-36); Mean Corpuscular Volume 96.4 FL (87-102); Mean Platelet Volume 10.1 FL (9.6-12.0); Monocytes % 9.9 % (1.7-12.7); Neutrophils % 63.1 % (38.7-73.9); Platelet Count 207 T/CUMM (130-400); Red Blood Count 4.48 MC/CUMM (3.8-5.5); Red Cell Distribution Width 14.7 % (9.3-17.3); White Blood Count 8.2 T/CUMM (4-12)
[2021-09-26 11:40] LABS: Albumin 3.1 G/DL (3.4-5.0); Bilirubin,Total 0.4 MG/DL (0.20-1.00); Calcium 8.9 MG/DL (8.5-10.1); Osmolality,Calculated 285.5 MOS/KG (273-304); Potassium 5.1 MMOL/L (3.5-5.1); Total Protein 6.4 G/DL (6.4-8.2)
[2021-09-26 12:10] LABS: Bacteria,Urine Occasional /HPF (Few); Bilirubin,Urine Negative (Negative); Blood, Urine Negative (Negative); Glucose,Urine (UA) >=500 mg/dL (Negative); Hyaline Casts,Urine 3 /LPF (0-3); Ketones,Urine Negative (Negative); Nitrite,Urine Negative (Negative); Protein,Urine Negative; RBC,Urine <1 /HPF (0-4); Squamous Epithelial Cell,Urine Occasional /HPF (0-10); Urine Appearance CLEAR (Clear); Urine Color Yellow (Yellow); Urine Specific Gravity 1.014 (1.001-1.035); Urine Urobilinogen < 2.0 EU/DL (0.2-1.0)
[2021-09-26] MEDS ORDERED: GLUCAGON 1 MG VIAL IM PRN (13:10)
[2021-09-26] MEDS ORDERED: DEXTROSE 50% 25 GM/50 ML SYRINGE IV PRN (13:10)
[2021-09-26] MEDS ORDERED: ONDANSETRON 4 MG/2 ML VIAL IV PRN (13:10)
[2021-09-26] MEDS ORDERED: DICLOFENAC 1% GEL 100 GM TUBE TOP PRN (13:20)
[2021-09-26] MEDS ORDERED: ASPIRIN EC 81 MG TABLET PO PRN (13:20)
[2021-09-26] MEDS ORDERED: MECLIZINE 25 MG TABLET PO PRN (13:20)
[2021-09-26] MEDS ORDERED: ALBUTEROL/IPRATROPIUM 3 ML NEB RESP TX PRN (13:22)
[2021-09-26] MEDS ORDERED: POLYETHYLENE GLYCOL POWDER 17 GM PACK PO PRN (14:19)
[2021-09-26] MEDS: SODIUM CHLORIDE 0.9% 1,000 ML IV SCH (14:45)
[2021-09-26] MEDS: INSULIN LISPRO 100 UNIT/ML SUBCUT SCH ×2 (16:28→22:29)
[2021-09-26] MEDS: ENOXAPARIN 40 MG/0.4 ML SYRINGE SUBCUT SCH (16:28)
[2021-09-26] MEDS: GABAPENTIN 600 MG TABLET PO SCH ×2 (16:28→22:29)
[2021-09-26] MEDS: FLUTICASONE/SALMETEROL 250-50 DISKUS 14 DOSE INH SCH (22:29)
[2021-09-26] MEDS: METOPROLOL TARTRATE 25 MG TABLET PO SCH (22:29)
[2021-09-26] MEDS: MONTELUKAST 10 MG TABLET PO SCH (22:30)
[2021-09-27] MEDS: SODIUM CHLORIDE 0.9% 1,000 ML IV SCH ×3 (00:45→20:10)
[2021-09-27 05:52] LABS: Basophils # 0.1 10*3/uL (0.0-0.2); Basophils % 0.7 % (0.0-0.8); Eosinophils # 0.2 10*3/uL (0.0-0.87); Eosinophils % 2.1 % (0.00-10.9); Hematocrit 40.1 VOL% (35.7-47.0); Hemoglobin 12.4 GM/DL (12.0-16.0); Immature Granulocytes % 0.8 %; Immature Granulocytes Absolute 0.06 #; Lymphocytes # 1.9 10*3/uL (1.4-4.0); Lymphocytes % 26.3 % (21.3-54.2); Mean Corpuscular HGB Conc 30.9 GM/DL (32-36); Mean Corpuscular Volume 96.4 FL (87-102); Mean Platelet Volume 10.2 FL (9.6-12.0); Monocytes % 12.9 % (1.7-12.7); Neutrophils % 57.2 % (38.7-73.9); Platelet Count 205 T/CUMM (130-400); Red Blood Count 4.16 MC/CUMM (3.8-5.5); Red Cell Distribution Width 14.7 % (9.3-17.3); White Blood Count 7.3 T/CUMM (4-12)
[2021-09-27 06:11] LABS: Calcium 8.5 MG/DL (8.5-10.1); Osmolality,Calculated 281.7 MOS/KG (273-304); Potassium 4.4 MMOL/L (3.5-5.1)
[2021-09-27] MEDS: PANTOPRAZOLE 40 MG TABLET PO SCH (08:34)
[2021-09-27] MEDS: METOPROLOL TARTRATE 25 MG TABLET PO SCH ×2 (08:34→21:33)
[2021-09-27] MEDS: GABAPENTIN 600 MG TABLET PO SCH ×3 (08:34→21:33)
[2021-09-27] MEDS: ACETAMINOPHEN 500 MG TABLET PO PRN ×2 (08:35→16:19)
[2021-09-27] MEDS: INSULIN LISPRO 100 UNIT/ML SUBCUT SCH ×4 (08:36→21:32)
[2021-09-27] MEDS: FLUTICASONE/SALMETEROL 250-50 DISKUS 14 DOSE INH SCH ×2 (08:38→21:34)
[2021-09-27] MEDS: CARBIDOPA/LEVODOPA 25-100 MG TABLET PO SCH ×2 (15:01→21:33)
[2021-09-27] MEDS: ENOXAPARIN 40 MG/0.4 ML SYRINGE SUBCUT SCH (15:01)
[2021-09-27] MEDS: MONTELUKAST 10 MG TABLET PO SCH (21:33)
[2021-09-28] MEDS: SODIUM CHLORIDE 0.9% 1,000 ML IV SCH ×2 (05:53→17:20)
[2021-09-28] MEDS: INSULIN LISPRO 100 UNIT/ML SUBCUT SCH ×4 (07:56→22:16)
[2021-09-28] MEDS: CARBIDOPA/LEVODOPA 25-100 MG TABLET PO SCH ×3 (10:04→22:17)
[2021-09-28] MEDS: METOPROLOL TARTRATE 25 MG TABLET PO SCH ×2 (10:05→22:16)
[2021-09-28] MEDS: PANTOPRAZOLE 40 MG TABLET PO SCH (10:05)
[2021-09-28] MEDS: GABAPENTIN 600 MG TABLET PO SCH ×3 (10:05→22:17)
[2021-09-28] MEDS: FLUTICASONE/SALMETEROL 250-50 DISKUS 14 DOSE INH SCH ×2 (10:05→22:16)
[2021-09-28] MEDS: ENOXAPARIN 40 MG/0.4 ML SYRINGE SUBCUT SCH (10:09)
[2021-09-28] MEDS: MONTELUKAST 10 MG TABLET PO SCH (22:17)
[2021-09-29] MEDS: SODIUM CHLORIDE 0.9% 1,000 ML IV SCH ×2 (03:20→19:29)
[2021-09-29 05:47] LABS: Basophils % 0.7 % (0.0-0.8); Eosinophils # 0.3 10*3/uL (0.0-0.87); Eosinophils % 4.8 % (0.00-10.9); Hematocrit 36.5 VOL% (35.7-47.0); Immature Granulocytes % 0.5 %; Immature Granulocytes Absolute 0.03 #; Lymphocytes # 1.4 10*3/uL (1.4-4.0); Lymphocytes % 25.3 % (21.3-54.2); Mean Corpuscular HGB Conc 30.1 GM/DL (32-36); Mean Corpuscular Volume 97.3 FL (87-102); Mean Platelet Volume 9.9 FL (9.6-12.0); Monocytes % 14.2 % (1.7-12.7); Neutrophils % 54.5 % (38.7-73.9); Platelet Count 181 T/CUMM (130-400); Red Blood Count 3.75 MC/CUMM (3.8-5.5); Red Cell Distribution Width 14.6 % (9.3-17.3); White Blood Count 5.6 T/CUMM (4-12)
[2021-09-29 06:16] LABS: Calcium 8.5 MG/DL (8.5-10.1); Osmolality,Calculated 279.4 MOS/KG (273-304); Potassium 4.2 MMOL/L (3.5-5.1)
[2021-09-29] MEDS: GABAPENTIN 600 MG TABLET PO SCH ×4 (09:10→22:55)
[2021-09-29] MEDS: METOPROLOL TARTRATE 25 MG TABLET PO SCH ×2 (09:10→22:55)
[2021-09-29] MEDS: PANTOPRAZOLE 40 MG TABLET PO SCH (09:10)
[2021-09-29] MEDS: CARBIDOPA/LEVODOPA 25-100 MG TABLET PO SCH ×4 (09:10→22:55)
[2021-09-29] MEDS: ENOXAPARIN 40 MG/0.4 ML SYRINGE SUBCUT SCH (09:11)
[2021-09-29] MEDS: FLUTICASONE/SALMETEROL 250-50 DISKUS 14 DOSE INH SCH ×2 (09:11→22:55)
[2021-09-29] MEDS: INSULIN LISPRO 100 UNIT/ML SUBCUT SCH ×5 (09:11→21:38)
[2021-09-29] MEDS ORDERED: traMADol 50 MG TABLET PO PRN (12:03)
[2021-09-29] MEDS: FUROSEMIDE 40 MG/4 ML VIAL IV SCH (15:52)
[2021-09-29] MEDS: LEVOFLOXACIN 750 MG TABLET PO SCH ×2 (15:52→19:40)
[2021-09-29] MEDS ORDERED: methylPREDNISolone SOD SUC 125 MG/2 ML VIAL IV ONE (16:21)
[2021-09-29 16:28] LABS: ABG Base Excess 2.3 MMOL/L (-2.5-2.5); ABG HCO3 26.4 MMOL/L (20-26); ABG Oxygen Saturation 96.8 % (95-100); ABG PCO2 56.1 MM HG (35-48); ABG PO2 83.1 MM HG (80-95); ABG TCO2 26.4 MMOL/L (23-27)
[2021-09-29] MEDS ORDERED: PIPERACILLIN IV SCH (16:30)
[2021-09-29] MEDS ORDERED: ENOXAPARIN 100 MG/ML SYRINGE SUBCUT ONE (16:30)
[2021-09-29] MEDS ORDERED: SODIUM CHLORIDE 0.9% IV SCH (16:30)
[2021-09-29] MEDS ORDERED: TAZOBACTAM IV SCH (16:30)
[2021-09-29 17:30] LABS: Blood Urea Nitrogen 9 MG/DL (7-18); Calcium 8.8 MG/DL (8.5-10.1); Carbon Dioxide 28 MMOL/L (21-32); Estimated Glom Filtration Rate 69 ML/MIN; Glucose 157 MG/DL (74-106); Osmolality,Calculated 276.7 MOS/KG (273-304); Potassium 4.3 MMOL/L (3.5-5.1); Sodium 138 MMOL/L (136-145)
[2021-09-29 17:52] LABS: Basophils % 0.5 % (0.0-0.8); Eosinophils # 0.3 10*3/uL (0.0-0.87); Eosinophils % 4.8 % (0.00-10.9); Hematocrit 39.3 VOL% (35.7-47.0); Lymphocytes # 1.7 10*3/uL (1.4-4.0); Lymphocytes % 28.4 % (21.3-54.2); Mean Corpuscular HGB Conc 30.5 GM/DL (32-36); Mean Corpuscular Volume 97.8 FL (87-102); Mean Platelet Volume 10.5 FL (9.6-12.0); Platelet Count 168 T/CUMM (130-400); Red Blood Count 4.02 MC/CUMM (3.8-5.5); Red Cell Distribution Width 14.6 % (9.3-17.3); White Blood Count 5.9 T/CUMM (4-12)
[2021-09-29] MEDS ORDERED: PIPERACILLIN/TAZOBACTAM 3,375 MG in SODIUM CHLORIDE 0.9% 100 ML IV SCH (18:00)
[2021-09-29] MEDS: LACTULOSE 20 GM/30 ML UDCUP PO ONE (22:55)
[2021-09-29] MEDS: MONTELUKAST 10 MG TABLET PO SCH (22:56)
[2021-09-29] MEDS: PIPERACILLIN/TAZOBACTAM 3,375 MG in SODIUM CHLORIDE 0.9% 100 ML IV SCH (22:56)
[2021-09-29] MEDS: methylPREDNISolone SOD SUC 40 MG/1 ML VIAL IV SCH (23:06)
[2021-09-30] MEDS: PIPERACILLIN/TAZOBACTAM 3,375 MG in SODIUM CHLORIDE 0.9% 100 ML IV SCH ×3 (00:03→16:26)
[2021-09-30] MEDS: LACTULOSE 20 GM/30 ML UDCUP PO ONE (00:08)
[2021-09-30] MEDS: GABAPENTIN 600 MG TABLET PO SCH ×2 (00:08→09:19)
[2021-09-30] MEDS: METOPROLOL TARTRATE 25 MG TABLET PO SCH ×3 (00:08→22:07)
[2021-09-30] MEDS: FLUTICASONE/SALMETEROL 250-50 DISKUS 14 DOSE INH SCH ×3 (00:08→22:07)
[2021-09-30] MEDS: CARBIDOPA/LEVODOPA 25-100 MG TABLET PO SCH ×4 (00:09→22:07)
[2021-09-30] MEDS: MONTELUKAST 10 MG TABLET PO SCH ×2 (00:22→22:08)
[2021-09-30 03:48] LABS: ABG Base Excess 2.7 MMOL/L (-2.5-2.5); ABG HCO3 26.7 MMOL/L (20-26); ABG Oxygen Saturation 96.8 % (95-100); ABG PCO2 60.5 MM HG (35-48); ABG PH 7.313 (7.35-7.45); ABG PO2 88.3 MM HG (80-95); ABG TCO2 27.2 MMOL/L (23-27)
[2021-09-30] MEDS: methylPREDNISolone SOD SUC 40 MG/1 ML VIAL IV SCH ×4 (04:58→22:08)
[2021-09-30 05:21] LABS: Basophils % 0.1 % (0.0-0.8); Hematocrit 41.4 VOL% (35.7-47.0); Hemoglobin 12.8 GM/DL (12.0-16.0); Immature Granulocytes % 0.4 %; Immature Granulocytes Absolute 0.03 #; Lymphocytes # 0.6 10*3/uL (1.4-4.0); Lymphocytes % 8.2 % (21.3-54.2); Mean Corpuscular HGB Conc 30.9 GM/DL (32-36); Mean Corpuscular Volume 95.4 FL (87-102); Mean Platelet Volume 10.3 FL (9.6-12.0); Monocytes % 0.8 % (1.7-12.7); Neutrophils % 90.5 % (38.7-73.9); Platelet Count 201 T/CUMM (130-400); Red Blood Count 4.34 MC/CUMM (3.8-5.5); Red Cell Distribution Width 14.3 % (9.3-17.3); White Blood Count 7.5 T/CUMM (4-12)
[2021-09-30 05:41] LABS: Calcium 9.2 MG/DL (8.5-10.1); Osmolality,Calculated 288.3 MOS/KG (273-304); Potassium 4.5 MMOL/L (3.5-5.1)
[2021-09-30 05:43] LABS: Albumin 2.7 G/DL (3.4-5.0); Bilirubin,Total 0.7 MG/DL (0.20-1.00); Calcium 9.4 MG/DL (8.5-10.1); Osmolality,Calculated 282.7 MOS/KG (273-304); Potassium 4.3 MMOL/L (3.5-5.1); Total Protein 6.5 G/DL (6.4-8.2)
[2021-09-30] MEDS: INSULIN LISPRO 100 UNIT/ML SUBCUT SCH ×4 (09:19→22:06)
[2021-09-30] MEDS: PANTOPRAZOLE 40 MG TABLET PO SCH (09:19)
[2021-09-30] MEDS: FUROSEMIDE 40 MG/4 ML VIAL IV SCH ×2 (09:19→16:27)
[2021-09-30] MEDS: ENOXAPARIN 40 MG/0.4 ML SYRINGE SUBCUT SCH (09:19)
[2021-09-30] MEDS: LEVOFLOXACIN 750 MG TABLET PO SCH (09:20)
[2021-10-01] MEDS: OLANZapine 2.5 MG TABLET PO ONE ×2 (01:32→02:49)
[2021-10-01] MEDS ORDERED: OLANZapine 10 MG VIAL IM ONE (01:46)
[2021-10-01 02:08] LABS: ABG Base Excess 7.3 MMOL/L (-2.5-2.5); ABG HCO3 30.9 MMOL/L (20-26); ABG Oxygen Saturation 90.6 % (95-100); ABG PCO2 49.3 MM HG (35-48); ABG PH 7.433 (7.35-7.45); ABG TCO2 28.8 MMOL/L (23-27)
[2021-10-01] MEDS: PIPERACILLIN/TAZOBACTAM 3,375 MG in SODIUM CHLORIDE 0.9% 100 ML IV SCH ×4 (02:47→16:43)
[2021-10-01 04:59] LABS: ABG Base Excess 7.5 MMOL/L (-2.5-2.5); ABG HCO3 31.3 MMOL/L (20-26); ABG Oxygen Saturation 98.4 % (95-100); ABG PCO2 50.4 MM HG (35-48); ABG PH 7.429 (7.35-7.45); ABG TCO2 29.3 MMOL/L (23-27)
[2021-10-01 05:07] LABS: Basophils % 0.1 % (0.0-0.8); Hemoglobin 12.1 GM/DL (12.0-16.0); Immature Granulocytes % 0.6 %; Immature Granulocytes Absolute 0.08 #; Lymphocytes # 0.6 10*3/uL (1.4-4.0); Lymphocytes % 4.8 % (21.3-54.2); Mean Platelet Volume 10.4 FL (9.6-12.0); Neutrophils % 91.5 % (38.7-73.9); Platelet Count 231 T/CUMM (130-400); Red Blood Count 4.24 MC/CUMM (3.8-5.5); Red Cell Distribution Width 14.2 % (9.3-17.3); White Blood Count 12.8 T/CUMM (4-12)
[2021-10-01 05:24] LABS: Calcium 9.3 MG/DL (8.5-10.1); Osmolality,Calculated 290.7 MOS/KG (273-304); Potassium 3.7 MMOL/L (3.5-5.1)
[2021-10-01 05:35] LABS: Band Neutrophils 3 % (0-10); Lymphocytes 6 % (20-55); Myelocytes 1 %; Segmented Neutrophils 88 % (50-85); Total Cells Counted 100
[2021-10-01 05:36] LABS: Hypochromasia 1+; Microcytosis Slight; Ovalocytes Slight; Platelet Estimate Normal
[2021-10-01] MEDS: methylPREDNISolone SOD SUC 40 MG/1 ML VIAL IV SCH ×4 (06:02→21:05)
[2021-10-01] MEDS: METOPROLOL TARTRATE 25 MG TABLET PO SCH ×2 (08:29→21:04)
[2021-10-01] MEDS: PANTOPRAZOLE 40 MG TABLET PO SCH (08:29)
[2021-10-01] MEDS: FUROSEMIDE 40 MG/4 ML VIAL IV SCH ×2 (08:30→16:43)
[2021-10-01] MEDS: ENOXAPARIN 40 MG/0.4 ML SYRINGE SUBCUT SCH (08:30)
[2021-10-01] MEDS: INSULIN LISPRO 100 UNIT/ML SUBCUT SCH ×4 (08:31→21:04)
[2021-10-01] MEDS: FLUTICASONE/SALMETEROL 250-50 DISKUS 14 DOSE INH SCH ×2 (08:31→21:04)
[2021-10-01] MEDS: CARBIDOPA/LEVODOPA 25-100 MG TABLET PO SCH ×4 (08:45→21:05)
[2021-10-01] MEDS: MONTELUKAST 10 MG TABLET PO SCH (21:04)
[2021-10-02] MEDS: PIPERACILLIN/TAZOBACTAM 3,375 MG in SODIUM CHLORIDE 0.9% 100 ML IV SCH ×2 (00:52→10:30)
[2021-10-02] MEDS: methylPREDNISolone SOD SUC 40 MG/1 ML VIAL IV SCH ×3 (03:23→23:11)
[2021-10-02 04:23] LABS: Basophils % 0.1 % (0.0-0.8); Hematocrit 39.1 VOL% (35.7-47.0); Hemoglobin 12.5 GM/DL (12.0-16.0); Immature Granulocytes % 0.6 %; Immature Granulocytes Absolute 0.07 #; Lymphocytes # 0.6 10*3/uL (1.4-4.0); Lymphocytes % 4.5 % (21.3-54.2); Mean Platelet Volume 10.7 FL (9.6-12.0); Monocytes % 3.2 % (1.7-12.7); Neutrophils % 91.6 % (38.7-73.9); Platelet Count 245 T/CUMM (130-400); Red Blood Count 4.25 MC/CUMM (3.8-5.5); Red Cell Distribution Width 14.4 % (9.3-17.3); White Blood Count 12.3 T/CUMM (4-12)
[2021-10-02 04:38] LABS: Calcium 9.7 MG/DL (8.5-10.1); Osmolality,Calculated 295.5 MOS/KG (273-304); Potassium 3.3 MMOL/L (3.5-5.1)
[2021-10-02 04:54] LABS: Lymphocytes 3 % (20-55); Platelet Estimate Adequate; Segmented Neutrophils 94 % (50-85); Total Cells Counted 100
[2021-10-02] MEDS ORDERED: POTASSIUM CHLORIDE 20 MEQ TABLET PO PRN (07:44)
[2021-10-02] MEDS ORDERED: ERGOCALCIFEROL 50,000 UNIT CAPSULE PO SCH (09:00)
[2021-10-02] MEDS ORDERED: SODIUM CHLORIDE 0.9% 250 ML IV ONE (09:21)
[2021-10-02] MEDS ORDERED: POTASSIUM CHLORIDE 20 MEQ TABLET PO ONE (09:24)
[2021-10-02] MEDS ORDERED: ALBUTEROL 2.5 MG/3 ML NEB RESP TX PRN (09:25)
[2021-10-02] MEDS ORDERED: OMALIZUMAB 150 MG/ML SYRINGE SUBCUT SCH (09:30)
[2021-10-02 09:54] LABS: ABG Base Excess 10.6 MMOL/L (-2.5-2.5); ABG HCO3 34.3 MMOL/L (20-26); ABG Oxygen Saturation 98.2 % (95-100); ABG PCO2 51.1 MM HG (35-48); ABG PH 7.461 (7.35-7.45); ABG TCO2 31.6 MMOL/L (23-27)
[2021-10-02] MEDS: INSULIN LISPRO 100 UNIT/ML SUBCUT SCH ×4 (09:54→23:10)
[2021-10-02] MEDS: METOPROLOL TARTRATE 25 MG TABLET PO SCH ×2 (09:54→23:09)
[2021-10-02 09:55] LABS: Allen Test Positive; Pt O2 Delivery Device BIPAP
[2021-10-02] MEDS: ENOXAPARIN 40 MG/0.4 ML SYRINGE SUBCUT SCH (09:55)
[2021-10-02] MEDS: FLUTICASONE/SALMETEROL 250-50 DISKUS 14 DOSE INH SCH ×2 (09:55→23:09)
[2021-10-02] MEDS: CARBIDOPA/LEVODOPA 25-100 MG TABLET PO SCH ×3 (10:29→23:11)
[2021-10-02] MEDS: PANTOPRAZOLE 40 MG TABLET PO SCH (10:30)
[2021-10-02] MEDS: LEVOFLOXACIN INJ 250 MG/50 ML PREMIX IV SCH (12:55)
[2021-10-02] MEDS: SUCRALFATE 1 GM TABLET PO SCH (17:00)
[2021-10-02] MEDS: MONTELUKAST 10 MG TABLET PO SCH (23:09)
[2021-10-03 04:52] LABS: Hematocrit 39.9 VOL% (35.7-47.0); Hemoglobin 12.4 GM/DL (12.0-16.0); Immature Granulocytes % 0.5 %; Immature Granulocytes Absolute 0.05 #; Lymphocytes # 0.4 10*3/uL (1.4-4.0); Lymphocytes % 3.8 % (21.3-54.2); Mean Corpuscular HGB Conc 31.1 GM/DL (32-36); Mean Platelet Volume 10.8 FL (9.6-12.0); Monocytes % 3.3 % (1.7-12.7); Neutrophils % 92.4 % (38.7-73.9); Platelet Count 229 T/CUMM (130-400); Red Blood Count 4.29 MC/CUMM (3.8-5.5); Red Cell Distribution Width 14.5 % (9.3-17.3); White Blood Count 10.4 T/CUMM (4-12)
[2021-10-03 05:12] LABS: Osmolality,Calculated 300.7 MOS/KG (273-304); Potassium 3.6 MMOL/L (3.5-5.1)
[2021-10-03 05:15] LABS: Lymphocytes 8 % (20-55); Platelet Estimate Adequate; Segmented Neutrophils 89 % (50-85); Total Cells Counted 100
[2021-10-03] MEDS: INSULIN LISPRO 100 UNIT/ML SUBCUT SCH ×4 (08:55→21:39)
[2021-10-03] MEDS: methylPREDNISolone SOD SUC 40 MG/1 ML VIAL IV SCH ×2 (08:55→21:42)
[2021-10-03] MEDS: FLUTICASONE/SALMETEROL 250-50 DISKUS 14 DOSE INH SCH ×2 (08:56→21:40)
[2021-10-03] MEDS: hydrALAZINE 20 MG/1 ML VIAL IV PRN (08:56)
[2021-10-03] MEDS: ENOXAPARIN 40 MG/0.4 ML SYRINGE SUBCUT SCH (08:56)
[2021-10-03] MEDS: DAPAGLIFLOZIN 10 MG TABLET PO SCH (08:57)
[2021-10-03] MEDS: METOPROLOL TARTRATE 25 MG TABLET PO SCH ×2 (08:57→21:39)
[2021-10-03] MEDS: SUCRALFATE 1 GM TABLET PO SCH ×2 (08:57→16:14)
[2021-10-03] MEDS: CARBIDOPA/LEVODOPA 25-100 MG TABLET PO SCH ×5 (09:26→21:41)
[2021-10-03] MEDS: LEVOFLOXACIN INJ 250 MG/50 ML PREMIX IV SCH (11:53)
[2021-10-03] MEDS: MONTELUKAST 10 MG TABLET PO SCH (21:39)
[2021-10-03] MEDS: INSULIN GLARGINE 100 UNIT/ML SUBCUT SCH (21:41)
[2021-10-04 04:56] LABS: Hematocrit 40.1 VOL% (35.7-47.0); Hemoglobin 12.3 GM/DL (12.0-16.0); Immature Granulocytes % 0.5 %; Immature Granulocytes Absolute 0.05 #; Lymphocytes # 0.6 10*3/uL (1.4-4.0); Lymphocytes % 5.7 % (21.3-54.2); Mean Corpuscular HGB Conc 30.7 GM/DL (32-36); Mean Platelet Volume 10.8 FL (9.6-12.0); Monocytes % 3.8 % (1.7-12.7); Platelet Count 252 T/CUMM (130-400); Red Blood Count 4.31 MC/CUMM (3.8-5.5); Red Cell Distribution Width 14.5 % (9.3-17.3); White Blood Count 10.1 T/CUMM (4-12)
[2021-10-04 05:16] LABS: Calcium 8.9 MG/DL (8.5-10.1); Osmolality,Calculated 299.4 MOS/KG (273-304); Potassium 3.7 MMOL/L (3.5-5.1)
[2021-10-04] MEDS: methylPREDNISolone SOD SUC 40 MG/1 ML VIAL IV SCH ×2 (09:11→21:57)
[2021-10-04] MEDS: DAPAGLIFLOZIN 10 MG TABLET PO SCH (09:12)
[2021-10-04] MEDS: INSULIN LISPRO 100 UNIT/ML SUBCUT SCH ×4 (09:12→21:57)
[2021-10-04] MEDS: ENOXAPARIN 40 MG/0.4 ML SYRINGE SUBCUT SCH (09:12)
[2021-10-04] MEDS: FLUTICASONE/SALMETEROL 250-50 DISKUS 14 DOSE INH SCH ×2 (09:13→22:04)
[2021-10-04] MEDS: SUCRALFATE 1 GM TABLET PO SCH ×2 (09:13→16:37)
[2021-10-04] MEDS: METOPROLOL TARTRATE 25 MG TABLET PO SCH ×2 (09:13→21:57)
[2021-10-04] MEDS: CARBIDOPA/LEVODOPA 25-100 MG TABLET PO SCH ×3 (09:51→22:04)
[2021-10-04] MEDS: LEVOFLOXACIN INJ 250 MG/50 ML PREMIX IV SCH (12:17)
[2021-10-04] MEDS: FUROSEMIDE 20 MG TABLET PO SCH (16:38)
[2021-10-04] MEDS: MONTELUKAST 10 MG TABLET PO SCH (21:57)
[2021-10-04] MEDS: ACETAMINOPHEN 500 MG TABLET PO PRN (21:57)
[2021-10-04] MEDS: INSULIN GLARGINE 100 UNIT/ML SUBCUT SCH (22:04)
[2021-10-05 05:20] LABS: Basophils % 0.1 % (0.0-0.8); Hematocrit 41.4 VOL% (35.7-47.0); Hemoglobin 12.9 GM/DL (12.0-16.0); Immature Granulocytes % 0.5 %; Immature Granulocytes Absolute 0.04 #; Lymphocytes # 0.6 10*3/uL (1.4-4.0); Lymphocytes % 6.5 % (21.3-54.2); Mean Corpuscular HGB Conc 31.2 GM/DL (32-36); Mean Corpuscular Volume 92.6 FL (87-102); Mean Platelet Volume 10.4 FL (9.6-12.0); Monocytes % 2.8 % (1.7-12.7); Neutrophils % 90.1 % (38.7-73.9); Platelet Count 273 T/CUMM (130-400); Red Blood Count 4.47 MC/CUMM (3.8-5.5); Red Cell Distribution Width 14.3 % (9.3-17.3); White Blood Count 8.5 T/CUMM (4-12)
[2021-10-05 05:37] LABS: Calcium 8.8 MG/DL (8.5-10.1); Osmolality,Calculated 301.1 MOS/KG (273-304); Potassium 3.9 MMOL/L (3.5-5.1)
[2021-10-05] MEDS: DAPAGLIFLOZIN 10 MG TABLET PO SCH (09:14)
[2021-10-05] MEDS: FUROSEMIDE 20 MG TABLET PO SCH ×2 (09:14→17:00)
[2021-10-05] MEDS: METOPROLOL TARTRATE 25 MG TABLET PO SCH ×2 (09:15→21:23)
[2021-10-05] MEDS: SUCRALFATE 1 GM TABLET PO SCH ×2 (09:15→17:00)
[2021-10-05] MEDS: INSULIN LISPRO 100 UNIT/ML SUBCUT SCH ×4 (09:15→21:25)
[2021-10-05] MEDS: ENOXAPARIN 40 MG/0.4 ML SYRINGE SUBCUT SCH (09:15)
[2021-10-05] MEDS: methylPREDNISolone SOD SUC 40 MG/1 ML VIAL IV SCH ×2 (09:16→21:24)
[2021-10-05] MEDS: FLUTICASONE/SALMETEROL 250-50 DISKUS 14 DOSE INH SCH ×2 (09:16→21:26)
[2021-10-05] MEDS: LEVOFLOXACIN INJ 250 MG/50 ML PREMIX IV SCH (09:16)
[2021-10-05] MEDS: CARBIDOPA/LEVODOPA 25-100 MG TABLET PO SCH ×3 (09:17→21:30)
[2021-10-05] MEDS: hydrALAZINE 20 MG/1 ML VIAL IV PRN (10:57)
[2021-10-05] MEDS: MONTELUKAST 10 MG TABLET PO SCH (21:23)
[2021-10-05] MEDS: INSULIN GLARGINE 100 UNIT/ML SUBCUT SCH (21:25)
[2021-10-06] MEDS: methylPREDNISolone SOD SUC 40 MG/1 ML VIAL IV SCH (10:04)
[2021-10-06] MEDS: METOPROLOL TARTRATE 25 MG TABLET PO SCH (10:04)
[2021-10-06] MEDS: FUROSEMIDE 20 MG TABLET PO SCH ×2 (10:04→16:36)
[2021-10-06] MEDS: DAPAGLIFLOZIN 10 MG TABLET PO SCH (10:04)
[2021-10-06] MEDS: ENOXAPARIN 40 MG/0.4 ML SYRINGE SUBCUT SCH (10:05)
[2021-10-06] MEDS: CARBIDOPA/LEVODOPA 25-100 MG TABLET PO SCH ×2 (10:05→14:53)
[2021-10-06] MEDS: INSULIN LISPRO 100 UNIT/ML SUBCUT SCH ×2 (10:06→12:45)
[2021-10-06] MEDS: FLUTICASONE/SALMETEROL 250-50 DISKUS 14 DOSE INH SCH (10:06)
[2021-10-06] MEDS: SUCRALFATE 1 GM TABLET PO SCH (10:13)
[2021-10-06] MEDS: LEVOFLOXACIN INJ 250 MG/50 ML PREMIX IV SCH (10:13)
[2021-10-06 11:36] VITALS: BP 163/96
== END 2021-10-06 16:16 | disposition swing bed (61) | DRG 56 ==
LOC: EDBD → EDUNIT# → N.ED 10:12 → N.EDINP 13:10 → SUATTDRO 13:10 → N.5E 14:35
PROVIDERS: ADMIT Internal Medicine; ATTEND Internal Medicine

== ENCOUNTER 2022-02-20 11:05 | Observation (INO) ==
[2022-02-20 12:25] LABS: Basophils # 0.1 10*3/uL (0.0-0.2); Basophils % 0.6 % (0.0-0.8); Eosinophils # 0.3 10*3/uL (0.0-0.87); Eosinophils % 3.3 % (0.00-10.9); Hematocrit 41.3 VOL% (35.7-47.0); Hemoglobin 12.8 GM/DL (12.0-16.0); Immature Granulocytes % 0.6 %; Immature Granulocytes Absolute 0.05 #; Lymphocytes # 1.1 10*3/uL (1.4-4.0); Lymphocytes % 14.3 % (21.3-54.2); Mean Corpuscular Volume 93.7 FL (87-102); Mean Platelet Volume 10.3 FL (9.6-12.0); Monocytes # 0.8 10*3/uL (0.11-0.8); Monocytes % 9.8 % (1.7-12.7); Neutrophils % 71.4 % (38.7-73.9); Platelet Count 329 T/CUMM (130-400); Red Blood Count 4.41 MC/CUMM (3.8-5.5); White Blood Count 7.9 T/CUMM (4-12)
[2022-02-20 12:33] LABS: INR 0.9; PT Patient Result 10.5 SECS (10.5-12.0)
[2022-02-20 12:52] LABS: Alanine Aminotransferase 16 U/L (13-56); Albumin 3.2 G/DL (3.4-5.0); Alkaline Phosphatase 72 U/L (45-117); Aspartate Amino Transferase 55 U/L (0-37); Bilirubin,Total < 0.39 MG/DL (0.20-1.00); Blood Urea Nitrogen 32 MG/DL (7-18); Calcium 9.8 MG/DL (8.5-10.1); Carbon Dioxide 29 MMOL/L (21-32); Chloride 103 MMOL/L (98-107); Estimated Glom Filtration Rate 51 ML/MIN; Glucose 135 MG/DL (74-106); Osmolality,Calculated 283.7 MOS/KG (273-304); Potassium 4.8 MMOL/L (3.5-5.1); Sodium 138 MMOL/L (136-145); Total Protein 6.5 G/DL (6.4-8.2)
[2022-02-20 13:05] LABS: Bilirubin,Urine Negative (Negative); Blood, Urine Negative (Negative); Glucose,Urine (UA) 100 mg/dL (Negative); Ketones,Urine Negative (Negative); Nitrite,Urine Negative (Negative); Protein,Urine Negative (Negative); Urine Appearance Clear (Clear); Urine Color Yellow (Yellow); Urine Urobilinogen 0.2 eU/dL (<2.0)
[2022-02-20 13:17] LABS: Bacteria,Urine Occasional /HPF (Few); Hyaline Casts,Urine 5 /LPF (0-3); Mucus,Urine Occasional /LPF (Occasional); RBC,Urine 2 /HPF (0-4); Squamous Epithelial Cell,Urine Moderate /HPF (0-10)
[2022-02-20] MEDS ORDERED: GLUCAGON 1 MG VIAL IM PRN (14:36)
[2022-02-20] MEDS ORDERED: ONDANSETRON 4 MG/2 ML VIAL IV PRN (14:38)
[2022-02-20] MEDS ORDERED: DEXTROSE 10% 250 ML BAG IV PRN (14:46)
[2022-02-20 15:08] LABS: CKMB % 0.78 %
[2022-02-20] MEDS: SODIUM CHLORIDE 0.9% 1,000 ML IV SCH (15:24)
[2022-02-20] MEDS ORDERED: ENOXAPARIN 40 MG/0.4 ML SYRINGE SUBCUT SCH (16:00)
[2022-02-20] MEDS ORDERED: cloNIDine 0.1 MG TABLET PO PRN (16:08)
[2022-02-20] MEDS ORDERED: GLIMEPIRIDE 4 MG TABLET PO SCH (17:00)
[2022-02-20] MEDS: INSULIN REGULAR 100 UNIT/ML SUBCUT SCH ×2 (18:41→21:14)
[2022-02-20] MEDS ORDERED: ATORVASTATIN 40 MG TABLET PO SCH (21:00)
[2022-02-20] MEDS ORDERED: MONTELUKAST 10 MG TABLET PO SCH (21:00)
[2022-02-20] MEDS: CARBIDOPA/LEVODOPA 25-100 MG TABLET PO SCH (21:14)
[2022-02-20] MEDS: METOPROLOL TARTRATE 25 MG TABLET PO SCH (21:14)
[2022-02-21] MEDS: SODIUM CHLORIDE 0.9% 1,000 ML IV SCH (05:46)
[2022-02-21 07:56] LABS: Basophils # 0.1 10*3/uL (0.0-0.2); Eosinophils # 0.3 10*3/uL (0.0-0.87); Eosinophils % 4.3 % (0.00-10.9); Hematocrit 36.8 VOL% (35.7-47.0); Hemoglobin 11.4 GM/DL (12.0-16.0); Immature Granulocytes % 0.3 %; Immature Granulocytes Absolute 0.02 #; Lymphocytes # 1.8 10*3/uL (1.4-4.0); Lymphocytes % 26.2 % (21.3-54.2); Mean Corpuscular Volume 92.9 FL (87-102); Mean Platelet Volume 10.1 FL (9.6-12.0); Monocytes # 0.7 10*3/uL (0.11-0.8); Monocytes % 9.4 % (1.7-12.7); Neutrophils % 58.8 % (38.7-73.9); Platelet Count 307 T/CUMM (130-400); Red Blood Count 3.96 MC/CUMM (3.8-5.5)
[2022-02-21 08:17] LABS: Alanine Aminotransferase 9 U/L (13-56); Albumin 2.8 G/DL (3.4-5.0); Alkaline Phosphatase 61 U/L (45-117); Aspartate Amino Transferase 32 U/L (0-37); Blood Urea Nitrogen 27 MG/DL (7-18); Calcium 9.3 MG/DL (8.5-10.1); Carbon Dioxide 27 MMOL/L (21-32); Chloride 105 MMOL/L (98-107); Estimated Glom Filtration Rate 56 ML/MIN; Glucose 93 MG/DL (74-106); Osmolality,Calculated 281.5 MOS/KG (273-304); Sodium 139 MMOL/L (136-145); Total Protein 6.3 G/DL (6.4-8.2)
[2022-02-21 08:18] VITALS: BP 134/70
[2022-02-21] MEDS: CARBIDOPA/LEVODOPA 25-100 MG TABLET PO SCH (08:40)
[2022-02-21] MEDS: METOPROLOL TARTRATE 25 MG TABLET PO SCH (08:40)
[2022-02-21] MEDS: INSULIN REGULAR 100 UNIT/ML SUBCUT SCH (08:44)
[2022-02-21] MEDS ORDERED: DAPAGLIFLOZIN 10 MG TABLET PO SCH (09:00)
[2022-02-21] MEDS ORDERED: allopurinoL 300 MG TABLET PO SCH (09:00)
[2022-02-21] MEDS ORDERED: OLMESARTAN 20 MG TABLET PO SCH (09:00)
[2022-02-21] MEDS ORDERED: PANTOPRAZOLE 40 MG TABLET PO SCH (09:00)
[2022-02-21] MEDS ORDERED: SPIRONOLACTONE 25 MG TABLET PO SCH (09:00)
[2022-02-21] MEDS ORDERED: POLYETHYLENE GLYCOL POWDER 17 GM PACK PO SCH (09:00)
[2022-02-21] MEDS ORDERED: ASPIRIN EC 81 MG TABLET PO SCH (09:00)
[2022-02-24] MEDS ORDERED: ERGOCALCIFEROL 50,000 UNIT CAPSULE PO SCH (09:00)
== END 2022-02-21 11:43 | disposition home health service (06) ==
LOC: N.ED 11:05 → N.EDINP 11:05 → SUATTDRO 14:35 → N.3E 22:59
PROVIDERS: ADMIT Family Medicine; ATTEND Internal Medicine

== ENCOUNTER 2022-10-02 03:09 | Inpatient (IN) ==
[2022-10-02] MEDS ORDERED: DEXTROSE 50% 25 GM/50 ML SYRINGE IV ONE (03:38)
[2022-10-02] MEDS ORDERED: ASPIRIN 325 MG TABLET PO STA (03:47)
[2022-10-02] MEDS ORDERED: DEXTROSE 50% 25 GM/50 ML VIAL IV STA (03:53)
[2022-10-02] MEDS ORDERED: DEXTROSE 50% 25 GM/50 ML SYRINGE IV STA (03:54)
[2022-10-02 03:57] LABS: Basophils % 0.1 % (0.0-0.8); Hematocrit 39.9 VOL% (35.7-47.0); Hemoglobin 12.1 GM/DL (12.0-16.0); Immature Granulocytes % 0.7 %; Immature Granulocytes Absolute 0.07 #; Lymphocytes # 1.6 10*3/uL (1.4-4.0); Lymphocytes % 16.9 % (21.3-54.2); Mean Corpuscular HGB Conc 30.3 GM/DL (32-36); Mean Corpuscular Volume 98.5 FL (87-102); Monocytes # 1.2 10*3/uL (0.11-0.8); Monocytes % 12.6 % (1.7-12.7); Neutrophils % 69.7 % (38.7-73.9); Platelet Count 232 T/CUMM (130-400); Red Blood Count 4.05 MC/CUMM (3.8-5.5); Red Cell Distribution Width 14.8 % (9.3-17.3); White Blood Count 9.4 T/CUMM (4-12)
[2022-10-02 04:19] LABS: Bilirubin,Urine Negative (Negative); Blood, Urine Negative (Negative); Glucose,Urine (UA) 250 mg/dL (Negative); Ketones,Urine Negative (Negative); Nitrite,Urine Negative (Negative); Protein,Urine Negative (Negative); Urine Appearance Clear (Clear); Urine Color Yellow (Yellow); Urine Specific Gravity 1.015 (1.001-1.035); Urine Urobilinogen 0.2 eU/dL (<2.0); Urine pH 5.5 (4.5-8.0)
[2022-10-02 04:22] LABS: Bacteria,Urine Many /HPF (Few); Hyaline Casts,Urine 5 /LPF (0-3); Mucus,Urine Occasional /LPF (Occasional); RBC,Urine 2 /HPF (0-4); Squamous Epithelial Cell,Urine Occasional /HPF (0-10)
[2022-10-02 04:30] LABS: Alanine Aminotransferase < 9 U/L (13-56); Albumin 3.2 G/DL (3.4-5.0); Alkaline Phosphatase 63 U/L (45-117); Aspartate Amino Transferase 13 U/L (0-37); Bilirubin,Total < 0.39 MG/DL (0.20-1.00); Blood Urea Nitrogen 44 MG/DL (7-18); Calcium 8.9 MG/DL (8.5-10.1); Carbon Dioxide 28 MMOL/L (21-32); Chloride 108 MMOL/L (98-107); Glucose 187 MG/DL (74-106); Osmolality,Calculated 296.3 MOS/KG (273-304); Sodium 141 MMOL/L (136-145); Total Protein 5.9 G/DL (6.4-8.2)
[2022-10-02] MEDS ORDERED: cefTRIAXone 1,000 MG in SODIUM CHLORIDE 0.9% 100 ML IV STA (04:40)
[2022-10-02] MEDS ORDERED: NON-FORMULARY MEDICATION (Albuterol Sulfate 90 mcg/actuation HFA aerosol inhaler) INH PRN (05:23)
[2022-10-02] MEDS ORDERED: cefTRIAXone 500 MG VIAL ONE (05:28)
[2022-10-02] MEDS: DEXTROSE 10% 1,000 ML IV SCH ×3 (07:00→17:44)
[2022-10-02] MEDS: METOPROLOL TARTRATE 25 MG TABLET PO SCH ×2 (08:59→21:24)
[2022-10-02] MEDS: PANTOPRAZOLE 40 MG TABLET PO SCH (08:59)
[2022-10-02] MEDS: GABAPENTIN 600 MG TABLET PO SCH ×3 (08:59→21:21)
[2022-10-02] MEDS: OLMESARTAN 20 MG TABLET PO SCH (08:59)
[2022-10-02] MEDS: hydroCHLOROthiazide 25 MG TABLET PO SCH (08:59)
[2022-10-02] MEDS: FUROSEMIDE 20 MG TABLET PO SCH ×2 (08:59→15:57)
[2022-10-02] MEDS: CARBIDOPA/LEVODOPA 25-100 MG TABLET PO SCH ×3 (08:59→21:23)
[2022-10-02] MEDS: SPIRONOLACTONE 25 MG TABLET PO SCH (08:59)
[2022-10-02] MEDS ORDERED: NF- (Fluticasone-Umeclidin-Vilanter [Trelegy Ellipta] 200-62.5-25 mcg INH SCH (09:00)
[2022-10-02] MEDS: allopurinoL 300 MG TABLET PO SCH (09:00)
[2022-10-02] MEDS: DAPAGLIFLOZIN 10 MG TABLET PO SCH (09:33)
[2022-10-02] MEDS: DEXTROSE 10% 250 ML BAG IV PRN ×2 (14:00→21:23)
[2022-10-02] MEDS: MONTELUKAST 10 MG TABLET PO SCH (21:21)
[2022-10-03 05:24] LABS: Basophils % 0.1 % (0.0-0.8); Hematocrit 34.7 VOL% (35.7-47.0); Hemoglobin 10.6 GM/DL (12.0-16.0); Immature Granulocytes % 1.1 %; Immature Granulocytes Absolute 0.11 #; Mean Corpuscular HGB Conc 30.5 GM/DL (32-36); Mean Corpuscular Volume 98.6 FL (87-102); Mean Platelet Volume 9.9 FL (9.6-12.0); Monocytes # 1.1 10*3/uL (0.11-0.8); Monocytes % 11.3 % (1.7-12.7); Neutrophils % 67.5 % (38.7-73.9); Platelet Count 182 T/CUMM (130-400); Red Blood Count 3.52 MC/CUMM (3.8-5.5); Red Cell Distribution Width 15.1 % (9.3-17.3); White Blood Count 10.1 T/CUMM (4-12)
[2022-10-03 05:46] LABS: Alanine Aminotransferase < 6 U/L (13-56); Albumin 2.5 G/DL (3.4-5.0); Alkaline Phosphatase 51 U/L (45-117); Aspartate Amino Transferase 13 U/L (0-37); Bilirubin,Total < 0.39 MG/DL (0.20-1.00); Blood Urea Nitrogen 44 MG/DL (7-18); Calcium 7.9 MG/DL (8.5-10.1); Carbon Dioxide 27 MMOL/L (21-32); Chloride 101 MMOL/L (98-107); Glucose 96 MG/DL (74-106); Osmolality,Calculated 278.2 MOS/KG (273-304); Sodium 134 MMOL/L (136-145); Total Protein 5.1 G/DL (6.4-8.2)
[2022-10-03] MEDS: FUROSEMIDE 20 MG TABLET PO SCH (08:20)
[2022-10-03] MEDS: SPIRONOLACTONE 25 MG TABLET PO SCH (08:20)
[2022-10-03] MEDS: DAPAGLIFLOZIN 10 MG TABLET PO SCH (08:21)
[2022-10-03] MEDS: OLMESARTAN 20 MG TABLET PO SCH (08:21)
[2022-10-03] MEDS: hydroCHLOROthiazide 25 MG TABLET PO SCH (08:22)
[2022-10-03] MEDS: METOPROLOL TARTRATE 25 MG TABLET PO SCH ×2 (08:22→21:41)
[2022-10-03] MEDS ORDERED: SODIUM CHLORIDE 0.9% 1,000 ML IV ONE (08:56)
[2022-10-03] MEDS: CARBIDOPA/LEVODOPA 25-100 MG TABLET PO SCH ×3 (09:00→21:41)
[2022-10-03] MEDS: allopurinoL 300 MG TABLET PO SCH (09:01)
[2022-10-03] MEDS: PANTOPRAZOLE 40 MG TABLET PO SCH (09:01)
[2022-10-03] MEDS: DEXTROSE 10% 1,000 ML IV SCH (09:05)
[2022-10-03] MEDS: ENOXAPARIN 40 MG/0.4 ML SYRINGE SUBCUT SCH (14:17)
[2022-10-03] MEDS: ACETAMINOPHEN 325 MG TABLET PO PRN (16:45)
[2022-10-03] MEDS: ALBUTEROL/IPRATROPIUM 3 ML NEB RESP TX PRN (17:40)
[2022-10-03] MEDS: MONTELUKAST 10 MG TABLET PO SCH (21:41)
[2022-10-04] MEDS: DEXTROSE 10% 1,000 ML IV SCH (02:23)
[2022-10-04 09:02] LABS: Calcium 8.3 MG/DL (8.5-10.1); Osmolality,Calculated 277.4 MOS/KG (273-304); Potassium 4.7 MMOL/L (3.5-5.1)
[2022-10-04] MEDS: traMADol 50 MG TABLET PO PRN (09:41)
[2022-10-04] MEDS: PANTOPRAZOLE 40 MG TABLET PO SCH (09:41)
[2022-10-04] MEDS: CARBIDOPA/LEVODOPA 25-100 MG TABLET PO SCH ×3 (09:41→22:41)
[2022-10-04] MEDS: allopurinoL 300 MG TABLET PO SCH (09:42)
[2022-10-04] MEDS: ENOXAPARIN 40 MG/0.4 ML SYRINGE SUBCUT SCH (16:07)
[2022-10-04] MEDS: ALBUTEROL/IPRATROPIUM 3 ML NEB RESP TX PRN (21:40)
[2022-10-04] MEDS: MONTELUKAST 10 MG TABLET PO SCH (22:42)
[2022-10-04 23:25] LABS: Arterial Base Excess iSTAT -1 MMOL/L (-2.5-2.5); Arterial Bicarbonate iSTAT 27.3 MMOL/L (20-26); Arterial O2 Saturation iSTAT 94 % (95-100); Arterial PCO2 iSTAT 61 MM HG (35-48); Arterial PO2 iSTAT 83 MM HG (80-95); Arterial Total CO2 iSTAT 29 MMO/L (23-27); Arterial pH iSTAT 7.259 (7.35-7.45)
[2022-10-05 01:41] LABS: Arterial Base Excess iSTAT 0 MMOL/L (-2.5-2.5); Arterial Bicarbonate iSTAT 27.8 MMOL/L (20-26); Arterial O2 Saturation iSTAT 89 % (95-100); Arterial PCO2 iSTAT 62 MM HG (35-48); Arterial PO2 iSTAT 67 MM HG (80-95); Arterial Total CO2 iSTAT 30 MMO/L (23-27); Arterial pH iSTAT 7.258 (7.35-7.45)
[2022-10-05] MEDS: CARBIDOPA/LEVODOPA 25-100 MG TABLET PO SCH ×3 (09:17→22:22)
[2022-10-05] MEDS: PANTOPRAZOLE 40 MG TABLET PO SCH (09:18)
[2022-10-05] MEDS: allopurinoL 300 MG TABLET PO SCH (09:19)
[2022-10-05] MEDS: traMADol 50 MG TABLET PO PRN (09:19)
[2022-10-05 11:36] LABS: Arterial Base Excess iSTAT 3 MMOL/L (-2.5-2.5); Arterial Bicarbonate iSTAT 29.4 MMOL/L (20-26); Arterial O2 Saturation iSTAT 98 % (95-100); Arterial PCO2 iSTAT 55 MM HG (35-48); Arterial PO2 iSTAT 110 MM HG (80-95); Arterial Total CO2 iSTAT 31 MMO/L (23-27); Arterial pH iSTAT 7.339 (7.35-7.45)
[2022-10-05] MEDS: ENOXAPARIN 40 MG/0.4 ML SYRINGE SUBCUT SCH (13:39)
[2022-10-05] MEDS: INSULIN LISPRO 100 UNIT/ML SUBCUT SCH ×2 (13:40→17:32)
[2022-10-05] MEDS: METOPROLOL TARTRATE 25 MG TABLET PO SCH (16:38)
[2022-10-05] MEDS: MONTELUKAST 10 MG TABLET PO SCH (22:22)
[2022-10-06] MEDS: INSULIN LISPRO 100 UNIT/ML SUBCUT SCH ×4 (01:20→17:14)
[2022-10-06 06:45] LABS: Basophils % 0.1 % (0.0-0.8); Eosinophils % 0.2 % (0.00-10.9); Hematocrit 37.1 VOL% (35.7-47.0); Hemoglobin 11.6 GM/DL (12.0-16.0); Immature Granulocytes % 0.5 %; Immature Granulocytes Absolute 0.04 #; Lymphocytes # 1.2 10*3/uL (1.4-4.0); Lymphocytes % 14.1 % (21.3-54.2); Mean Corpuscular HGB Conc 31.3 GM/DL (32-36); Mean Corpuscular Volume 96.9 FL (87-102); Mean Platelet Volume 12.7 FL (9.6-12.0); Monocytes % 11.6 % (1.7-12.7); Neutrophils % 73.5 % (38.7-73.9); Platelet Count 106 T/CUMM (130-400); Red Blood Count 3.83 MC/CUMM (3.8-5.5); Red Cell Distribution Width 14.3 % (9.3-17.3); White Blood Count 8.4 T/CUMM (4-12)
[2022-10-06 07:00] LABS: Albumin 2.9 G/DL (3.4-5.0); Bilirubin,Total 0.6 MG/DL (0.20-1.00); Calcium 9.3 MG/DL (8.5-10.1); Osmolality,Calculated 281.8 MOS/KG (273-304); Potassium 5.4 MMOL/L (3.5-5.1); Total Protein 6.3 G/DL (6.4-8.2)
[2022-10-06] MEDS ORDERED: SODIUM POLYSTYRENE SULFATE 15 GM/60 ML BOTTLE PO STA (07:24)
[2022-10-06] MEDS ORDERED: ERGOCALCIFEROL 50,000 UNIT CAPSULE PO SCH (09:00)
[2022-10-06] MEDS: allopurinoL 300 MG TABLET PO SCH (09:34)
[2022-10-06] MEDS: CARBIDOPA/LEVODOPA 25-100 MG TABLET PO SCH ×3 (09:34→20:06)
[2022-10-06] MEDS: PANTOPRAZOLE 40 MG TABLET PO SCH (09:34)
[2022-10-06] MEDS: METOPROLOL TARTRATE 25 MG TABLET PO SCH ×2 (09:37→20:06)
[2022-10-06 14:27] LABS: Calcium 9.5 MG/DL (8.5-10.1); Osmolality,Calculated 287.5 MOS/KG (273-304); Potassium 4.8 MMOL/L (3.5-5.1)
[2022-10-06] MEDS: ENOXAPARIN 40 MG/0.4 ML SYRINGE SUBCUT SCH (14:32)
[2022-10-06] MEDS: ALBUTEROL/IPRATROPIUM 3 ML NEB RESP TX PRN (20:05)
[2022-10-06] MEDS: ACETAMINOPHEN 325 MG TABLET PO PRN (20:06)
[2022-10-06] MEDS: MONTELUKAST 10 MG TABLET PO SCH (20:06)
[2022-10-07] MEDS: INSULIN LISPRO 100 UNIT/ML SUBCUT SCH ×5 (00:07→23:39)
[2022-10-07 04:36] LABS: Hematocrit 34.4 VOL% (35.7-47.0); Hemoglobin 10.7 GM/DL (12.0-16.0); Immature Granulocytes % 0.4 %; Immature Granulocytes Absolute 0.03 #; Lymphocytes # 1.2 10*3/uL (1.4-4.0); Lymphocytes % 17.4 % (21.3-54.2); Mean Corpuscular HGB Conc 31.1 GM/DL (32-36); Mean Corpuscular Volume 95.8 FL (87-102); Mean Platelet Volume 9.8 FL (9.6-12.0); Monocytes # 0.8 10*3/uL (0.11-0.8); Neutrophils % 71.2 % (38.7-73.9); Platelet Count 192 T/CUMM (130-400); Red Blood Count 3.59 MC/CUMM (3.8-5.5); Red Cell Distribution Width 14.1 % (9.3-17.3)
[2022-10-07 04:56] LABS: Alanine Aminotransferase < 6 U/L (13-56); Albumin 2.8 G/DL (3.4-5.0); Alkaline Phosphatase 52 U/L (45-117); Aspartate Amino Transferase 7 U/L (0-37); Blood Urea Nitrogen 26 MG/DL (7-18); Calcium 9.1 MG/DL (8.5-10.1); Carbon Dioxide 33 MMOL/L (21-32); Chloride 105 MMOL/L (98-107); Glucose 161 MG/DL (74-106); Osmolality,Calculated 288.3 MOS/KG (273-304); Potassium 4.3 MMOL/L (3.5-5.1); Sodium 141 MMOL/L (136-145); Total Protein 6.1 G/DL (6.4-8.2)
[2022-10-07] MEDS: CARBIDOPA/LEVODOPA 25-100 MG TABLET PO SCH ×3 (09:53→21:10)
[2022-10-07] MEDS: METOPROLOL TARTRATE 25 MG TABLET PO SCH ×2 (09:53→21:11)
[2022-10-07] MEDS: PANTOPRAZOLE 40 MG TABLET PO SCH (09:53)
[2022-10-07] MEDS: allopurinoL 300 MG TABLET PO SCH (09:53)
[2022-10-07] MEDS: ENOXAPARIN 40 MG/0.4 ML SYRINGE SUBCUT SCH (13:39)
[2022-10-07] MEDS: MONTELUKAST 10 MG TABLET PO SCH (21:11)
[2022-10-08] MEDS: ONDANSETRON 4 MG/2 ML VIAL IV PRN ×3 (02:27→20:58)
[2022-10-08 05:41] LABS: Basophils % 0.1 % (0.0-0.8); Hematocrit 35.9 VOL% (35.7-47.0); Hemoglobin 11.3 GM/DL (12.0-16.0); Immature Granulocytes % 0.6 %; Immature Granulocytes Absolute 0.04 #; Lymphocytes # 1.1 10*3/uL (1.4-4.0); Lymphocytes % 16.4 % (21.3-54.2); Mean Corpuscular HGB Conc 31.5 GM/DL (32-36); Mean Corpuscular Volume 96.2 FL (87-102); Mean Platelet Volume 10.3 FL (9.6-12.0); Monocytes # 0.7 10*3/uL (0.11-0.8); Monocytes % 9.8 % (1.7-12.7); Neutrophils % 73.1 % (38.7-73.9); Platelet Count 218 T/CUMM (130-400); Red Blood Count 3.73 MC/CUMM (3.8-5.5); White Blood Count 6.8 T/CUMM (4-12)
[2022-10-08] MEDS: INSULIN LISPRO 100 UNIT/ML SUBCUT SCH ×3 (05:50→19:18)
[2022-10-08 06:05] LABS: Alanine Aminotransferase < 9 U/L (13-56); Albumin 3.1 G/DL (3.4-5.0); Alkaline Phosphatase 55 U/L (45-117); Aspartate Amino Transferase 7 U/L (0-37); Blood Urea Nitrogen 29 MG/DL (7-18); Calcium 9.6 MG/DL (8.5-10.1); Carbon Dioxide 31 MMOL/L (21-32); Chloride 106 MMOL/L (98-107); Glucose 142 MG/DL (74-106); Osmolality,Calculated 295.7 MOS/KG (273-304); Potassium 4.2 MMOL/L (3.5-5.1); Sodium 145 MMOL/L (136-145); Total Protein 6.4 G/DL (6.4-8.2)
[2022-10-08 07:55] LABS: ABG Base Excess 6.1 MMOL/L (-2.5-2.5); ABG Oxygen Saturation 97.5 % (95-100); ABG PCO2 56.6 MM HG (35-48); ABG PH 7.374 (7.35-7.45); ABG PO2 96.8 MM HG (80-95); ABG TCO2 29.6 MMOL/L (23-27)
[2022-10-08] MEDS: OLMESARTAN 20 MG TABLET PO SCH (09:35)
[2022-10-08] MEDS: METOPROLOL TARTRATE 25 MG TABLET PO SCH ×2 (09:35→21:06)
[2022-10-08] MEDS: PANTOPRAZOLE 40 MG TABLET PO SCH (09:36)
[2022-10-08] MEDS: allopurinoL 300 MG TABLET PO SCH (09:36)
[2022-10-08] MEDS: CARBIDOPA/LEVODOPA 25-100 MG TABLET PO SCH ×3 (09:36→21:06)
[2022-10-08] MEDS: ENOXAPARIN 40 MG/0.4 ML SYRINGE SUBCUT SCH (13:15)
[2022-10-08] MEDS: MONTELUKAST 10 MG TABLET PO SCH (21:06)
[2022-10-09] MEDS: INSULIN LISPRO 100 UNIT/ML SUBCUT SCH ×4 (00:05→19:10)
[2022-10-09 06:20] LABS: Hematocrit 35.4 VOL% (35.7-47.0); Hemoglobin 10.9 GM/DL (12.0-16.0); Immature Granulocytes % 0.5 %; Immature Granulocytes Absolute 0.05 #; Lymphocytes # 1.2 10*3/uL (1.4-4.0); Lymphocytes % 11.2 % (21.3-54.2); Mean Corpuscular HGB Conc 30.8 GM/DL (32-36); Mean Corpuscular Volume 97.5 FL (87-102); Mean Platelet Volume 10.3 FL (9.6-12.0); Monocytes # 1.3 10*3/uL (0.11-0.8); Monocytes % 12.3 % (1.7-12.7); Platelet Count 221 T/CUMM (130-400); Red Blood Count 3.63 MC/CUMM (3.8-5.5); Red Cell Distribution Width 14.2 % (9.3-17.3); White Blood Count 10.8 T/CUMM (4-12)
[2022-10-09 06:43] LABS: Alanine Aminotransferase < 6 U/L (13-56); Albumin 2.9 G/DL (3.4-5.0); Alkaline Phosphatase 61 U/L (45-117); Aspartate Amino Transferase 10 U/L (0-37); Blood Urea Nitrogen 32 MG/DL (7-18); Calcium 9.2 MG/DL (8.5-10.1); Carbon Dioxide 33 MMOL/L (21-32); Chloride 104 MMOL/L (98-107); Glucose 168 MG/DL (74-106); Osmolality,Calculated 293.1 MOS/KG (273-304); Potassium 4.5 MMOL/L (3.5-5.1); Sodium 142 MMOL/L (136-145); Total Protein 6.4 G/DL (6.4-8.2)
[2022-10-09] MEDS ORDERED: LACTATED RINGERS 500 ML IV ONE (09:06)
[2022-10-09] MEDS: OLMESARTAN 20 MG TABLET PO SCH (10:17)
[2022-10-09] MEDS: CARBIDOPA/LEVODOPA 25-100 MG TABLET PO SCH ×3 (10:17→20:43)
[2022-10-09] MEDS: PANTOPRAZOLE 40 MG TABLET PO SCH (10:18)
[2022-10-09] MEDS: METOPROLOL TARTRATE 25 MG TABLET PO SCH ×2 (10:18→20:43)
[2022-10-09] MEDS: allopurinoL 300 MG TABLET PO SCH (10:18)
[2022-10-09] MEDS: predniSONE 20 MG TABLET PO SCH (16:08)
[2022-10-09] MEDS ORDERED: cefTRIAXone 1,000 MG in SODIUM CHLORIDE 0.9% 100 ML IV SCH (17:00)
[2022-10-09] MEDS ORDERED: AZITHROMYCIN INJ 500 MG in SODIUM CHLORIDE 0.9% 250 ML IV SCH (18:00)
[2022-10-09] MEDS: MONTELUKAST 10 MG TABLET PO SCH (20:43)
[2022-10-09] MEDS: ENOXAPARIN 40 MG/0.4 ML SYRINGE SUBCUT SCH (20:53)
[2022-10-10] MEDS: INSULIN LISPRO 100 UNIT/ML SUBCUT SCH ×3 (00:32→12:04)
[2022-10-10] MEDS: ALBUTEROL/IPRATROPIUM 3 ML NEB RESP TX PRN (01:10)
[2022-10-10 05:45] LABS: Hematocrit 37.1 VOL% (35.7-47.0); Hemoglobin 11.4 GM/DL (12.0-16.0); Immature Granulocytes % 0.5 %; Immature Granulocytes Absolute 0.04 #; Lymphocytes # 0.5 10*3/uL (1.4-4.0); Lymphocytes % 5.8 % (21.3-54.2); Mean Corpuscular HGB Conc 30.7 GM/DL (32-36); Mean Corpuscular Volume 96.1 FL (87-102); Mean Platelet Volume 10.6 FL (9.6-12.0); Monocytes # 0.1 10*3/uL (0.11-0.8); Monocytes % 1.6 % (1.7-12.7); Neutrophils % 92.1 % (38.7-73.9); Platelet Count 229 T/CUMM (130-400); Red Blood Count 3.86 MC/CUMM (3.8-5.5); Red Cell Distribution Width 14.3 % (9.3-17.3); White Blood Count 8.2 T/CUMM (4-12)
[2022-10-10 06:09] LABS: Lymphocytes 7 % (20-55); Platelet Estimate Adequate; Total Cells Counted 100
[2022-10-10 06:15] LABS: Calcium 9.3 MG/DL (8.5-10.1); Osmolality,Calculated 296.3 MOS/KG (273-304); Potassium 4.5 MMOL/L (3.5-5.1)
[2022-10-10 08:41] VITALS: BP 149/69
[2022-10-10] MEDS: METOPROLOL TARTRATE 25 MG TABLET PO SCH (09:49)
[2022-10-10] MEDS: OLMESARTAN 20 MG TABLET PO SCH (09:49)
[2022-10-10] MEDS: PANTOPRAZOLE 40 MG TABLET PO SCH (09:49)
[2022-10-10] MEDS: CARBIDOPA/LEVODOPA 25-100 MG TABLET PO SCH (09:49)
[2022-10-10] MEDS: predniSONE 20 MG TABLET PO SCH (09:49)
[2022-10-10] MEDS: allopurinoL 300 MG TABLET PO SCH (09:49)
[2022-10-10] MEDS ORDERED: TUBERCULIN SKIN TEST 0.1 ML SYRINGE INTRADERM ONE (11:00)
== END 2022-10-10 12:23 | disposition home health service (06) | DRG 637 ==
LOC: EDBD → EDUNIT# → N.EDINP 03:09 → N.ED 03:09 → N.2W 07:09 → SUATTDRO 10-05 08:38 → N.5E 10-08 17:12
PROVIDERS: ADMIT Internal Medicine; ATTEND Internal Medicine

== ENCOUNTER 2022-11-10 19:03 | Inpatient (IN) ==
[2022-11-10] MEDS: DEXTROSE 10% 500 ML IV SCH (19:20)
[2022-11-10] MEDS ORDERED: DEXTROSE 10% 500 ML IV SCH (19:30)
[2022-11-10] MEDS ORDERED: DEXTROSE 10% 250 ML IV ONE (19:31)
[2022-11-10 19:49] LABS: Basophils % 0.1 % (0.0-0.8); Eosinophils % 0.2 % (0.00-10.9); Hematocrit 38.4 VOL% (35.7-47.0); Hemoglobin 11.6 GM/DL (12.0-16.0); Immature Granulocytes % 0.6 %; Immature Granulocytes Absolute 0.05 #; Lymphocytes # 1.1 10*3/uL (1.4-4.0); Mean Corpuscular HGB Conc 30.2 GM/DL (32-36); Mean Corpuscular Volume 97.5 FL (87-102); Mean Platelet Volume 10.4 FL (9.6-12.0); Monocytes % 10.9 % (1.7-12.7); Neutrophils % 76.2 % (38.7-73.9); Platelet Count 255 T/CUMM (130-400); Red Blood Count 3.94 MC/CUMM (3.8-5.5); White Blood Count 8.8 T/CUMM (4-12)
[2022-11-10 19:59] LABS: Alanine Aminotransferase 12 U/L (13-56); Albumin 3.3 G/DL (3.4-5.0); Alkaline Phosphatase 81 U/L (45-117); Aspartate Amino Transferase 16 U/L (0-37); Bilirubin,Total < 0.39 MG/DL (0.20-1.00); Blood Urea Nitrogen 43 MG/DL (7-18); Calcium 9.1 MG/DL (8.5-10.1); Carbon Dioxide 31 MMOL/L (21-32); Chloride 104 MMOL/L (98-107); Glucose 62 MG/DL (74-106); Osmolality,Calculated 285.5 MOS/KG (273-304); Sodium 139 MMOL/L (136-145)
[2022-11-10 20:49] LABS: Bilirubin,Urine Negative (Negative); Blood, Urine Negative (Negative); Glucose,Urine (UA) 250 mg/dL (Negative); Ketones,Urine Negative (Negative); Mucus,Urine Occasional /LPF (Occasional); Nitrite,Urine Negative (Negative); Protein,Urine Negative (Negative); Squamous Epithelial Cell,Urine Occasional /HPF (0-10); Urine Appearance Clear (Clear); Urine Color Yellow (Yellow); Urine Urobilinogen 0.2 eU/dL (<2.0); Urine pH 5.5 (4.5-8.0)
[2022-11-10] MEDS ORDERED: GLUCAGON 1 MG VIAL IM PRN (21:16)
[2022-11-11] MEDS: DEXTROSE 10% 250 ML BAG IV PRN ×2 (04:27→07:27)
[2022-11-11] MEDS: INSULIN REGULAR 100 UNIT/ML SUBCUT SCH ×3 (07:33→17:45)
[2022-11-11] MEDS: PANTOPRAZOLE 40 MG TABLET PO SCH (09:35)
[2022-11-11] MEDS: DEXTROSE 10% 500 ML IV SCH (09:56)
[2022-11-11] MEDS ORDERED: ALBUTEROL 2.5 MG/3 ML NEB RESP TX PRN (10:25)
[2022-11-11] MEDS ORDERED: MAGNESIUM SULF RIDER 2 GM/50 ML PREMIX IV PRN (10:27)
[2022-11-11] MEDS ORDERED: POTASSIUM CHLORIDE RIDER 10 MEQ/100 ML PREMIX IV PRN ×2 (10:27)
[2022-11-11] MEDS ORDERED: POTASSIUM CHLORIDE RIDER 20 MEQ/100 ML PREMIX IV PRN (10:27)
[2022-11-11] MEDS ORDERED: MAGNESIUM SULF RIDER 4 GM/100 ML PREMIX IV PRN (10:27)
[2022-11-11] MEDS: cefTRIAXone 1,000 MG in SODIUM CHLORIDE 0.9% 100 ML IV SCH (12:11)
[2022-11-11] MEDS: CARBIDOPA/LEVODOPA 25-100 MG TABLET PO SCH ×2 (12:52→21:59)
[2022-11-11] MEDS: FUROSEMIDE 20 MG TABLET PO SCH (16:00)
[2022-11-11] MEDS: MONTELUKAST 10 MG TABLET PO SCH (21:59)
[2022-11-11] MEDS: METOPROLOL TARTRATE 25 MG TABLET PO SCH (21:59)
[2022-11-11] MEDS: ONDANSETRON 4 MG/2 ML VIAL IV PRN (22:06)
[2022-11-12] MEDS ORDERED: ALPRAZolam 0.5 MG TABLET PO ONE (01:50)
[2022-11-12 05:32] LABS: Basophils % 0.1 % (0.0-0.8); Hematocrit 37.6 VOL% (35.7-47.0); Hemoglobin 11.5 GM/DL (12.0-16.0); Immature Granulocytes % 0.5 %; Immature Granulocytes Absolute 0.04 #; Lymphocytes # 1.6 10*3/uL (1.4-4.0); Lymphocytes % 19.6 % (21.3-54.2); Mean Corpuscular HGB Conc 30.6 GM/DL (32-36); Mean Corpuscular Volume 95.7 FL (87-102); Mean Platelet Volume 9.7 FL (9.6-12.0); Monocytes # 0.9 10*3/uL (0.11-0.8); Monocytes % 11.1 % (1.7-12.7); Neutrophils % 68.7 % (38.7-73.9); Platelet Count 271 T/CUMM (130-400); Red Blood Count 3.93 MC/CUMM (3.8-5.5); Red Cell Distribution Width 14.9 % (9.3-17.3); White Blood Count 8.1 T/CUMM (4-12)
[2022-11-12 05:55] LABS: Alanine Aminotransferase < 6 U/L (13-56); Alkaline Phosphatase 71 U/L (45-117); Aspartate Amino Transferase 13 U/L (0-37); Bilirubin,Total < 0.39 MG/DL (0.20-1.00); Blood Urea Nitrogen 29 MG/DL (7-18); Calcium 9.4 MG/DL (8.5-10.1); Carbon Dioxide 35 MMOL/L (21-32); Chloride 103 MMOL/L (98-107); Glucose 140 MG/DL (74-106); Osmolality,Calculated 288.3 MOS/KG (273-304); Potassium 4.5 MMOL/L (3.5-5.1); Sodium 141 MMOL/L (136-145); Total Protein 6.3 G/DL (6.4-8.2)
[2022-11-12] MEDS: ACETAMINOPHEN 500 MG TABLET PO PRN (08:30)
[2022-11-12] MEDS: PANTOPRAZOLE 40 MG TABLET PO SCH (08:31)
[2022-11-12] MEDS: ATORVASTATIN 40 MG TABLET PO SCH (08:31)
[2022-11-12] MEDS: METOPROLOL TARTRATE 25 MG TABLET PO SCH ×2 (08:31→21:32)
[2022-11-12] MEDS: allopurinoL 300 MG TABLET PO SCH (08:34)
[2022-11-12] MEDS: CARBIDOPA/LEVODOPA 25-100 MG TABLET PO SCH ×4 (08:34→21:32)
[2022-11-12] MEDS: FUROSEMIDE 20 MG TABLET PO SCH ×2 (08:35→15:10)
[2022-11-12] MEDS: INSULIN REGULAR 100 UNIT/ML SUBCUT SCH ×3 (08:37→17:55)
[2022-11-12] MEDS: cefTRIAXone 1,000 MG in SODIUM CHLORIDE 0.9% 100 ML IV SCH (11:20)
[2022-11-12] MEDS: ONDANSETRON 4 MG/2 ML VIAL IV PRN (12:01)
[2022-11-12] MEDS: MONTELUKAST 10 MG TABLET PO SCH (21:32)
[2022-11-13] MEDS: INSULIN REGULAR 100 UNIT/ML SUBCUT SCH ×4 (03:35→17:11)
[2022-11-13] MEDS ORDERED: DEXTROSE 50% 25 GM/50 ML VIAL IV PRN (06:44)
[2022-11-13] MEDS: PANTOPRAZOLE 40 MG TABLET PO SCH (08:42)
[2022-11-13] MEDS: ATORVASTATIN 40 MG TABLET PO SCH (08:42)
[2022-11-13] MEDS: METOPROLOL TARTRATE 25 MG TABLET PO SCH ×2 (08:42→21:40)
[2022-11-13] MEDS: FUROSEMIDE 20 MG TABLET PO SCH ×2 (08:43→16:18)
[2022-11-13] MEDS: allopurinoL 300 MG TABLET PO SCH (08:43)
[2022-11-13] MEDS: CARBIDOPA/LEVODOPA 25-100 MG TABLET PO SCH ×3 (08:43→21:40)
[2022-11-13 09:03] LABS: Basophils % 0.1 % (0.0-0.8); Hemoglobin 12.1 GM/DL (12.0-16.0); Immature Granulocytes % 0.4 %; Immature Granulocytes Absolute 0.03 #; Lymphocytes # 1.8 10*3/uL (1.4-4.0); Lymphocytes % 20.6 % (21.3-54.2); Mean Corpuscular Volume 95.4 FL (87-102); Mean Platelet Volume 9.4 FL (9.6-12.0); Monocytes # 0.9 10*3/uL (0.11-0.8); Monocytes % 10.6 % (1.7-12.7); Neutrophils % 68.3 % (38.7-73.9); Platelet Count 271 T/CUMM (130-400); Red Blood Count 4.09 MC/CUMM (3.8-5.5); Red Cell Distribution Width 14.8 % (9.3-17.3); White Blood Count 8.5 T/CUMM (4-12)
[2022-11-13 09:23] LABS: Alanine Aminotransferase < 6 U/L (13-56); Albumin 3.1 G/DL (3.4-5.0); Alkaline Phosphatase 81 U/L (45-117); Aspartate Amino Transferase 11 U/L (0-37); Blood Urea Nitrogen 24 MG/DL (7-18); Calcium 9.4 MG/DL (8.5-10.1); Carbon Dioxide 33 MMOL/L (21-32); Chloride 104 MMOL/L (98-107); Glucose 147 MG/DL (74-106); Osmolality,Calculated 287.3 MOS/KG (273-304); Potassium 4.9 MMOL/L (3.5-5.1); Sodium 141 MMOL/L (136-145); Total Protein 6.1 G/DL (6.4-8.2)
[2022-11-13] MEDS: cefTRIAXone 1,000 MG in SODIUM CHLORIDE 0.9% 100 ML IV SCH (11:41)
[2022-11-13] MEDS: MONTELUKAST 10 MG TABLET PO SCH (21:40)
[2022-11-14] MEDS: INSULIN REGULAR 100 UNIT/ML SUBCUT SCH ×4 (00:50→18:18)
[2022-11-14 05:40] LABS: Basophils % 0.1 % (0.0-0.8); Immature Granulocytes % 0.3 %; Immature Granulocytes Absolute 0.03 #; Lymphocytes # 1.5 10*3/uL (1.4-4.0); Lymphocytes % 16.5 % (21.3-54.2); Mean Corpuscular HGB Conc 30.8 GM/DL (32-36); Mean Corpuscular Volume 95.4 FL (87-102); Mean Platelet Volume 9.8 FL (9.6-12.0); Monocytes # 0.9 10*3/uL (0.11-0.8); Monocytes % 9.3 % (1.7-12.7); Neutrophils % 73.8 % (38.7-73.9); Platelet Count 296 T/CUMM (130-400); Red Blood Count 4.09 MC/CUMM (3.8-5.5); Red Cell Distribution Width 14.6 % (9.3-17.3); White Blood Count 9.2 T/CUMM (4-12)
[2022-11-14 06:06] LABS: Bilirubin,Total 0.5 MG/DL (0.20-1.00); Calcium 9.7 MG/DL (8.5-10.1); Osmolality,Calculated 277.8 MOS/KG (273-304); Total Protein 6.4 G/DL (6.4-8.2)
[2022-11-14] MEDS: SODIUM CHLORIDE 0.9% 1,000 ML IV SCH (08:34)
[2022-11-14] MEDS: ATORVASTATIN 40 MG TABLET PO SCH (08:35)
[2022-11-14] MEDS: FUROSEMIDE 20 MG TABLET PO SCH ×2 (08:35→15:29)
[2022-11-14] MEDS: CARBIDOPA/LEVODOPA 25-100 MG TABLET PO SCH ×3 (08:35→20:29)
[2022-11-14] MEDS: PANTOPRAZOLE 40 MG TABLET PO SCH (08:36)
[2022-11-14] MEDS: METOPROLOL TARTRATE 25 MG TABLET PO SCH ×2 (08:36→20:30)
[2022-11-14] MEDS: allopurinoL 300 MG TABLET PO SCH (08:42)
[2022-11-14] MEDS: cefTRIAXone 1,000 MG in SODIUM CHLORIDE 0.9% 100 ML IV SCH (15:29)
[2022-11-14] MEDS: METOCLOPRAMIDE 5 MG TABLET PO SCH (16:33)
[2022-11-14] MEDS: MONTELUKAST 10 MG TABLET PO SCH (20:30)
[2022-11-15] MEDS: INSULIN REGULAR 100 UNIT/ML SUBCUT SCH ×5 (00:20→21:10)
[2022-11-15] MEDS: SODIUM CHLORIDE 0.9% 1,000 ML IV SCH ×2 (00:20→13:56)
[2022-11-15] MEDS: ACETAMINOPHEN 500 MG TABLET PO PRN (00:22)
[2022-11-15] MEDS: CARBIDOPA/LEVODOPA 25-100 MG TABLET PO SCH ×3 (08:19→21:07)
[2022-11-15] MEDS: allopurinoL 300 MG TABLET PO SCH (08:19)
[2022-11-15] MEDS: METOPROLOL TARTRATE 25 MG TABLET PO SCH ×2 (08:20→21:08)
[2022-11-15] MEDS: PANTOPRAZOLE 40 MG TABLET PO SCH (08:20)
[2022-11-15] MEDS: ATORVASTATIN 40 MG TABLET PO SCH (08:20)
[2022-11-15] MEDS: METOCLOPRAMIDE 5 MG TABLET PO SCH ×3 (08:20→15:58)
[2022-11-15] MEDS: FUROSEMIDE 20 MG TABLET PO SCH ×2 (08:20→15:57)
[2022-11-15 09:18] LABS: Calcium 9.5 MG/DL (8.5-10.1); Osmolality,Calculated 290.1 MOS/KG (273-304); Potassium 3.9 MMOL/L (3.5-5.1)
[2022-11-15] MEDS: MONTELUKAST 10 MG TABLET PO SCH (21:08)
[2022-11-15] MEDS: cefTRIAXone 1,000 MG VIAL IM SCH (21:14)
[2022-11-16 05:36] LABS: Basophils % 0.2 % (0.0-0.8); Hematocrit 36.3 VOL% (35.7-47.0); Hemoglobin 11.4 GM/DL (12.0-16.0); Immature Granulocytes % 0.3 %; Immature Granulocytes Absolute 0.02 #; Lymphocytes # 1.4 10*3/uL (1.4-4.0); Lymphocytes % 22.1 % (21.3-54.2); Mean Corpuscular HGB Conc 31.4 GM/DL (32-36); Mean Corpuscular Volume 94.5 FL (87-102); Mean Platelet Volume 9.8 FL (9.6-12.0); Monocytes # 0.8 10*3/uL (0.11-0.8); Monocytes % 12.2 % (1.7-12.7); Neutrophils % 65.2 % (38.7-73.9); Platelet Count 280 T/CUMM (130-400); Red Blood Count 3.84 MC/CUMM (3.8-5.5); Red Cell Distribution Width 14.6 % (9.3-17.3); White Blood Count 6.4 T/CUMM (4-12)
[2022-11-16 05:58] LABS: Calcium 9.2 MG/DL (8.5-10.1); Osmolality,Calculated 288.1 MOS/KG (273-304); Potassium 3.6 MMOL/L (3.5-5.1)
[2022-11-16] MEDS: INSULIN REGULAR 100 UNIT/ML SUBCUT SCH ×4 (07:52→20:47)
[2022-11-16] MEDS: ATORVASTATIN 40 MG TABLET PO SCH (08:42)
[2022-11-16] MEDS: CARBIDOPA/LEVODOPA 25-100 MG TABLET PO SCH ×3 (08:42→21:23)
[2022-11-16] MEDS: FUROSEMIDE 20 MG TABLET PO SCH ×2 (08:42→15:53)
[2022-11-16] MEDS: allopurinoL 300 MG TABLET PO SCH (08:42)
[2022-11-16] MEDS: METOCLOPRAMIDE 5 MG TABLET PO SCH ×3 (08:42→15:53)
[2022-11-16] MEDS: METOPROLOL TARTRATE 25 MG TABLET PO SCH ×2 (08:43→21:23)
[2022-11-16] MEDS: PANTOPRAZOLE 40 MG TABLET PO SCH (08:43)
[2022-11-16] MEDS: DAPAGLIFLOZIN 5 MG TABLET PO SCH (15:53)
[2022-11-16] MEDS: cefTRIAXone 1,000 MG VIAL IM SCH (21:23)
[2022-11-16] MEDS: MONTELUKAST 10 MG TABLET PO SCH (21:23)
[2022-11-17] MEDS: DAPAGLIFLOZIN 5 MG TABLET PO SCH (08:31)
[2022-11-17] MEDS: INSULIN REGULAR 100 UNIT/ML SUBCUT SCH ×2 (08:31→11:49)
[2022-11-17] MEDS: METOCLOPRAMIDE 5 MG TABLET PO SCH ×2 (08:31→11:49)
[2022-11-17] MEDS: ATORVASTATIN 40 MG TABLET PO SCH (08:32)
[2022-11-17] MEDS: FUROSEMIDE 20 MG TABLET PO SCH (08:32)
[2022-11-17] MEDS: METOPROLOL TARTRATE 25 MG TABLET PO SCH (08:32)
[2022-11-17] MEDS: allopurinoL 300 MG TABLET PO SCH (08:32)
[2022-11-17] MEDS: PANTOPRAZOLE 40 MG TABLET PO SCH (08:32)
[2022-11-17] MEDS: CARBIDOPA/LEVODOPA 25-100 MG TABLET PO SCH (08:32)
[2022-11-17 11:24] VITALS: BP 135/70
== END 2022-11-17 13:10 | disposition home health service (06) | DRG 637 ==
LOC: EDUNIT# → N.ED 19:03 → N.2W 19:03 → N.2E 11-15 16:37
PROVIDERS: ADMIT Family Medicine; ATTEND Family Medicine